=== PATIENT | female | born 1995 | race Two or more races ===

== ENCOUNTER 2016-12-06 15:39 | Emergency (ER) | payer SELFPAY ==
[~2016-12-06] VITALS: Ht 154.9 cm; Wt 44.5 kg
[2016-12-06 17:38] LABS: BILIRUBIN,URINE NEGATIVE (NEG); GLUCOSE,URINE 250 mg/dL (NEG); NITRITE,URINE NEGATIVE (NEG); PROTEIN,URINE NEGATIVE (NEG-TRACE)
[2016-12-06 17:39] LABS: BASO % 0 % (0-3); EOS % 1 % (0-3); HEMATOCRIT 39.5 % (36.0-47.0); HEMOGLOBIN 13.8 g/dL (12.0-15.5); LYMPH # 2.4 x10^3/uL (1.0-4.8); LYMPH % 20 % (24-48); MEAN CORPUSCULAR HEMOGLOBIN 33 pg (25-35); MEAN CORPUSCULAR HGB CONC 35 g/dL (31-37); MEAN CORPUSCULAR VOLUME 95 fL (79-100); MONO % 6 % (0-9); NEUT % 73 % (31-73); PLATELET COUNT 397 x10^3/uL (140-400); RED BLOOD COUNT 4.15 x10^6/uL (3.50-5.40); WHITE BLOOD COUNT 11.9 x10^3/uL (4.0-11.0)
[2016-12-06 17:45] LABS: BARBITURATES NEG (NEG); BENZODIAZEPINES NEG (NEG); CANNABINOIDS NEG (NEG); COCAINE NEG (NEG); METHADONE NEG (NEG); OPIATES NEG (NEG); PHENCYCLIDINE NEG (NEG)
[2016-12-06 17:50] LABS: ETHANOL, URINE NEG (NEG)
[2016-12-06 17:52] LABS: BACTERIA,URINE MODERATE /HPF (0-FEW); SQUAMOUS EPITHELIAL CELL,UR MOD /LPF
--- NOTE | 2016-12-06 18:09 | ED.ADGEN ---
Past Medical History Past Medical History: Anxiety, Depression Past Surgical History: No Surgical History Alcohol Use: None Drug Use: None Adult General Chief Complaint Chief Complaint: SUICDAL IDEATION HPI HPI Patient is a 21 year old woman, history of anxiety and depression, who presents the emergency department with complaint of depression and suicidal ideation. Patient moved to the area 2 months ago, stay with family, but states that she feels very anxious about multiple factors in her life. She states that she is not certain if she may be . Patient's last menstrual period began 11 November. She also is complaining of a foreign body sensation in her left ear for the past 2 weeks. It is associated with runny nose and sore throat. Patient states she also some coughing that is nonproductive. She is complaining of abdominal cramping. Denies any discharge or drainage from the vagina, denies any concern for STD exposure. Patient denies any plan at this time, denies any ingestions, a self injures behaviors currently her past. Denies any auditory or visual hallucinations. Patient is Albanian-speaking, toe trimmer used via the language line during discussion and evaluation. Review of Systems Review of Systems Constitutional: Denies fever or chills. [] Eyes: Denies change in visual acuity. [] HENT: Rhinorrhea, sore throat, pain in the left ear. Respiratory: Nonproductive cough. No shortness of breath. Cardiovascular: Denies chest pain or edema. [] GI: Lower quadrant abdominal cramping, nausea, no vomiting, bloody stools or diarrhea. : Denies dysuria. [] Musculoskeletal: Denies back pain or joint pain. [] Integument: Denies rash. [] Neurologic: Denies headache, focal weakness or sensory changes. [] Endocrine: Denies polyuria or polydipsia. [] Lymphatic: Denies swollen glands. [] Psychiatric: Depression and anxiety, suicidal ideation. Current Medications Current Medications Current Medications Medications (Trade) Dose Ordered Sig/Mey Start Time Stop Time Status Last Admin Dose Admin Amoxicillin (Amoxil) 1,000 mg 1X ONCE 12/06/16 20:45 12/06/16 20:45 DC 12/06/16 20:19 1,000 MG Cephalexin HCl (Keflex) 500 mg 1X ONCE 12/06/16 19:00 12/06/16 19:01 DC 12/06/16 20:09 500 MG Metronidazole (Flagyl) 500 mg 1X ONCE 12/06/16 19:00 12/06/16 19:01 DC 12/06/16 20:09 500 MG Ondansetron HCl (Zofran Odt) 4 mg STK-MED ONCE 12/06/16 20:07 12/06/16 20:08 DC Ondansetron HCl (Zofran) 4 mg 1X ONCE 12/06/16 19:00 12/06/16 19:01 DC Allergies Allergies Allergies Coded Allergies Type Severity Reaction Last Updated Verified No Known Drug Allergies 12/06/16 No Physical Exam Physical Exam Constitutional: Well developed, well nourished, no acute distress, non-toxic appearance. [] HENT: Normocephalic, atraumatic, bilateral external ears normal, patient with erythema and a small fluid level noted on the left TM, right TM is normal. Patient with normal external canals bilaterally. Patient noted to have mild turbinate swelling and clear rhinorrhea, mild postnasal drip and injection of the oropharynx. Eyes: PERRLA, EOMI, conjunctiva normal, no discharge. [] Neck: Normal range of motion, no tenderness, supple, no stridor. [] Cardiovascular:Heart rate regular rhythm, no murmur , S1, S2, rubs or gallops. [ ] Lungs & Thorax: Bilateral breath sounds clear to auscultation, no wheezing, rhonchi, rales. No chest or crepitus or tenderness. [] Abdomen: Bowel sounds normal, soft, no tenderness, no masses, no pulsatile masses. [] Skin: Warm, dry, no erythema, no rash. [] Back: No tenderness, no CVA tenderness. [] Extremities: No tenderness, no cyanosis, no clubbing, ROM intact, no edema. [] Neurologic: Alert and oriented X 3, normal motor function, normal sensory function, no focal deficits noted. [] Psychologic: Affect normal, judgement normal, mood normal. [] Pelvic examination: Normal-appearing external examination, bimanual examination reveals a closed os, nontender cervix and adnexa, no masses. Speculum examination reveals normal-appearing cervix, specimens taken without issue, moderate amount of white discharge noted. Current Patient Data Vital Signs Vital Signs Date Time Temp Pulse Resp B/P Pulse Ox O2 Delivery O2 Flow Rate FiO2 12/06/16 20:20 108 18 113/65 96 Room Air 12/06/16 16:33 97.9 97.9 Lab Values Laboratory Tests Test 12/06/16 15:57 12/06/16 16:50 12/06/16 17:30 12/06/16 17:55 POC Urine HCG, Qualitative Hcg positive (Negative) Urine Collection Type Unknown Urine Color Yellow Urine Clarity Clear Urine pH 7.0 Urine Specific [place] 1.020 Urine Protein Negativemg/dL (NEG-TRACE) Urine Glucose (UA) 250mg/dL (NEG) Urine Ketones (Stick) Negativemg/dL (NEG) Urine Blood Negative (NEG) Urine Nitrite Negative (NEG) Urine Bilirubin Negative (NEG) Urine Urobilinogen Dipstick 1.0mg/dL (0.2 mg/dL) Urine Leukocyte Esterase Negative (NEG) Urine RBC 1-2/HPF (0-2) Urine WBC 1-4/HPF (0-4) Urine Squamous Epithelial Cells Mod/LPF Urine Bacteria Moderate/HPF (0-FEW) Urine Mucus Mod/LPF Urine Opiates Screen Neg (NEG) Urine Methadone Screen Neg (NEG) Urine Barbiturates Neg (NEG) Urine Phencyclidine Screen Neg (NEG) Urine Amphetamine/Methamphetamine Neg (NEG) Urine Benzodiazepines Screen Neg (NEG) Urine Cocaine Screen Neg (NEG) Urine Cannabinoids Screen Neg (NEG) Urine Ethyl Alcohol Neg (NEG) White Blood Count 11.9x10^3/uL (4.0-11.0) H Red Blood Count 4.15x10^6/uL (3.50-5.40) Hemoglobin 13.8g/dL (12.0-15.5) Hematocrit 39.5% (36.0-47.0) Mean Corpuscular Volume 95fL (79-100) Mean Corpuscular Hemoglobin 33pg (25-35) Mean Corpuscular Hemoglobin Concent 35g/dL (31-37) Red Cell Distribution Width 12.0% (11.5-14.5) Platelet Count 397x10^3/uL (140-400) Neutrophils (%) (Auto) 73% (31-73) Lymphocytes (%) (Auto) 20% (24-48) L Monocytes (%) (Auto) 6% (0-9) Eosinophils (%) (Auto) 1% (0-3) Basophils (%) (Auto) 0% (0-3) Neutrophils # (Auto) 8.6x10^3uL (1.8-7.7) H Lymphocytes # (Auto) 2.4x10^3/uL (1.0-4.8) Monocytes # (Auto) 0.7x10^3/uL (0.0-1.1) Eosinophils # (Auto) 0.1x10^3/uL (0.0-0.7) Basophils # (Auto) 0.0x10^3/uL (0.0-0.2) Maternal Serum HCG Beta Subunit 32mIU/mL (0-6) H Sodium Level 139mmol/L (136-145) Potassium Level 3.5mmol/L (3.5-5.1) Chloride Level 102mmol/L (98-107) Carbon Dioxide Level 27mmol/L (21-32) Anion Gap 10 (6-14) Blood Urea Nitrogen 11mg/dL (7-20) Creatinine 0.6mg/dL (0.6-1.0) Estimated GFR (Cockcroft-Gault) 127.5 BUN/Creatinine Ratio 18 (6-20) Glucose Level 100mg/dL (70-99) H Calcium Level 9.5mg/dL (8.5-10.1) Total Bilirubin 0.2mg/dL (0.2-1.0) Aspartate Amino Transferase (AST) 24U/L (15-37) Alanine Aminotransferase (ALT) 39U/L (14-59) Alkaline Phosphatase 76U/L (46-116) Total Protein 8.6g/dL (6.4-8.2) H Albumin 3.9g/dL (3.4-5.0) Albumin/Globulin Ratio 0.8 (1.0-1.7) L Lipase 109U/L (73-393) Laboratory Tests 12/06/16 17:30 Laboratory Tests 12/06/16 17:55 Microbiology 12/06/16 Wet Prep - Final, Complete EKG EKG ECG: Rhythm strip: Sinus tachycardia, heart rate 101 beats minute, no ectopy. As interpreted by me. Radiology/Procedures Radiology/Procedures Not indicated. [] Course & Med Decision Making Course & Med Decision Making Pertinent Labs and Imaging studies reviewed. (See chart for details) Patient with multiple complaints as stated, including occasional suicidal ideation and frequent anxiety, with depression after recent move, for which she states she would like to speak to someone about available resources for counseling. Patient has no suicidal thoughts at this time, has no plan. No homicidal ideation, no auditory or visual hallucinations. No ingestions or other concerning behaviors. Patient was informed that she was in the emergency department today, states that her last menstrual period was a month ago. Beta quantitative assay in the ED is 32, patient was complaining of mild abdominal pain, at this time there is no utility to perform an ultrasound, which I did did discuss with the patient, emphasized that it is very important she follows up with [facility] for additional assessment. Patient's wet prep was positive for bacterial vaginosis, she was also noted to have evidence of bacteria in the urine, and was treated with Keflex and metronidazole in the ED. The importance of follow-up was also discussed regarding this factor, patient was given resources for follow-up from the psychiatric assessment team, where she can be treated for her ,as well as her mental mental health concerns. Patient noted to have inflammation of the left TM, although she has some evidence of a likely viral infection, as this is going for 2 weeks, I will treat with a course of antibiotics as well. There are patient received amoxicillin in the ED as well, ultimately was given prescriptions for Zofran, amoxicillin, metronidazole and Keflex to cover the multiple infectious sources. As stated the patient denies any concerns for STI exposure, cultures were taken during her examination, and she was informed she be contacted via telephone with results if she required follow-up. Patient was evaluated by the psychiatric assessment team as stated, and continues to deny any current suicidal ideation or other concerning symptoms. She was given follow-up information as stated, we did discuss clear and detailed return instructions with this patient voiced understanding and agreement. Patient was discharged home in stable condition with plan to follow-up with the resources as provided to her by the psychiatric assessment team for both her and her anxiety and depression, and to return to the ED if any concerning symptoms develop. Dragon Disclaimer Dragon Disclaimer This electronic medical record was generated, in whole or in part, using a voice recognition dictation system. Departure Impression: Primary Impression: Bacterial vaginosis Additional Impressions: Urinary tract infection affecting Abdominal pain affecting Depression Anxiety Otitis media Disposition: 01 HOME, SELF-CARE Condition: IMPROVED Scripts Ondansetron Hcl (Zofran)4 Mg Tablet1 Tab PO PRN Q6-8HRS #10 TAB Prov:MARIA DEL ROSARIO STEIN DO 12/06/16 Cephalexin (Keflex)500 Mg Capsule1 Cap PO BID #14 CAP Prov:MARIA DEL ROSARIO STEIN DO 12/06/16 Metronidazole 500 Mg Tablet1 Tab PO BID #14 TAB Prov:MARIA DEL ROSARIO STEIN DO 12/06/16 Amoxicillin 875 Mg Hetsws409 Mg PO TID #15 TAB Ref 0 Prov:MARIA DEL ROSARIO STEIN DO 12/06/16 Pnv With Ca,No.72/Iron,Carb/Fa ( Plus Iron Tablet)1 Each Tablet1 Tab PO DAILY #30 TAB Ref 11 Prov:MARIA DEL ROSARIO STEIN DO 12/06/16 Problem Qualifiers MARIA DEL ROSARIO STEIN DO Dec 06, 2016 18:09
[2016-12-06 18:35] LABS: CALCIUM 9.5 mg/dL (8.5-10.1); CREATININE 0.6 mg/dL (0.6-1.0); GFR 127.5; POTASSIUM 3.5 mmol/L (3.5-5.1)
[2016-12-06 18:39] LABS: ALBUMIN 3.9 g/dL (3.4-5.0); ALBUMIN/GLOBULIN RATIO 0.8 (1.0-1.7); TOTAL BILIRUBIN 0.2 mg/dL (0.2-1.0); TOTAL PROTEIN 8.6 g/dL (6.4-8.2)
[2016-12-06] MEDS ORDERED: CEPHALEXIN 250 MG CAPSULE. PO ONE (19:00)
[2016-12-06] MEDS ORDERED: ONDANSETRON PF 4 MG/2 ML VIAL. IV ONE (19:00)
[2016-12-06] MEDS ORDERED: METRONIDAZOLE 500 MG TABLET. PO ONE (19:00)
[2016-12-06] MEDS ORDERED: ONDANSETRON ODT 4 MG TAB.RAPDIS. ONE (20:07)
[2016-12-06] MEDS ORDERED: METR500T4 PO (20:12)
[2016-12-06] MEDS ORDERED: CEPH-264 PO (20:12)
[2016-12-06] MEDS ORDERED: PNV1TABL34 PO (20:12)
[2016-12-06] MEDS ORDERED: ONDA4TAB7 PO (20:12)
[2016-12-06] MEDS ORDERED: AMOX875T PO (20:12)
[2016-12-06] MEDS ORDERED: ONDANSETRON ODT 4 MG TAB.RAPDIS. PO ONE (20:15)
[2016-12-06 20:20] VITALS: BP 113/65
[2016-12-06] MEDS ORDERED: AMOXICILLIN 250 MG CAPSULE. PO ONE (20:45)
== END 2016-12-06 20:20 | disposition home or self-care (01) ==
LOC: ER 15:39
DX: Z33.1 Pregnant state, incidental (principal); F32.9 Major depressive disorder, single episode, unspecified; F41.9 Anxiety disorder, unspecified; N39.0 Urinary tract infection, site not specified; N76.0 Acute vaginitis; B96.89 Other specified bacterial agents as the cause of diseases classified elsewhere; H66.92 Otitis media, unspecified, left ear; R45.851 Suicidal ideations
CPT/HCPCS: 36415; 80053; 80305; 81001; 81025; 83690; 84702; 85027; 87086; 87491; 87591; 99284; Q0111; Q0162; G0481

== ENCOUNTER 2017-08-14 04:05 | Inpatient (IN) | payer SELFPAY ==
[~2017-08-14] VITALS: Ht 157.5 cm; Wt 54.0 kg
[~2017-08-14 04:05] MED LIST: AMOX875T PO; CEPH-264 PO; METR500T8 PO; ONDA4TAB7 PO; PNV1TABL34 PO
[2017-08-14] MEDS ORDERED: ACETAMINOPHEN 325 MG TABLET. PO PRN ×2 (04:15→05:45)
[2017-08-14] MEDS ORDERED: IV RINGERS,LACTATED 1000ML 1,000 ML IV PRN (04:15)
[2017-08-14] MEDS ORDERED: IV RINGERS,LACTATED 500ML 500 ML IV PRN (04:15)
[2017-08-14] MEDS ORDERED: MAG HYDROX/ALUMINUM HYD/SIMETH 30 ML ORAL.SUSP PO PRN ×2 (04:15→05:45)
[2017-08-14 04:44] LABS: BILIRUBIN,URINE NEGATIVE (NEG); GLUCOSE,URINE NEGATIVE (NEG); NITRITE,URINE NEGATIVE (NEG); PH,URINE 6.5; PROTEIN,URINE NEGATIVE (NEG-TRACE); UROBILINOGEN,URINE 0.2 mg/dL (0.2 mg/dL)
[2017-08-14 05:05] LABS: BACTERIA,URINE FEW /HPF (0-FEW); SQUAMOUS EPITHELIAL CELL,UR FEW /LPF
[2017-08-14] MEDS ORDERED: IV RINGERS,LACTATED 1000ML 1,000 ML IV SCH ×2 (05:42→08:14)
[2017-08-14] MEDS ORDERED: TERBUTALINE 1 MG/ML VIAL. SQ PRN (05:45)
[2017-08-14] MEDS ORDERED: BUTORPHANOL 2 MG/ML VIAL. IV PRN (05:45)
[2017-08-14] MEDS ORDERED: OXYTOCIN 30 UNIT/500 ML PREMIX 500 ML IV PRN ×2 (05:45→06:30)
[2017-08-14] MEDS ORDERED: LIDOCAINE 1% PF 30 ML VIAL. INJ PRN (05:45)
[2017-08-14] MEDS ORDERED: 0.9 % SODIUM CHLORIDE 10 ML DISP.SYRIN. IV PRN (05:45)
[2017-08-14] MEDS ORDERED: fentaNYL PF VIAL 100 MCG/2 ML VIAL IV PRN (05:45)
[2017-08-14 06:17] LABS: BASO % 0 % (0-3); EOS % 1 % (0-3); HEMATOCRIT 41.3 % (36.0-47.0); LYMPH # 3.2 x10^3/uL (1.0-4.8); LYMPH % 31 % (24-48); MEAN CORPUSCULAR HEMOGLOBIN 33 pg (25-35); MEAN CORPUSCULAR HGB CONC 34 g/dL (31-37); MEAN CORPUSCULAR VOLUME 99 fL (79-100); MONO % 6 % (0-9); NEUT % 62 % (31-73); PLATELET COUNT 264 x10^3/uL (140-400); RED BLOOD COUNT 4.19 x10^6/uL (3.50-5.40); RED CELL DISTRIBUTION WIDTH 13.7 % (11.5-14.5); WHITE BLOOD COUNT 10.4 x10^3/uL (4.0-11.0)
[2017-08-14] MEDS ORDERED: PENICILLIN G K 5,000,000 UNIT in IV DEXTROSE 5% 100 ML IV ONE (06:30)
[2017-08-14] MEDS: ONDANSETRON PF 4 MG/2 ML VIAL. IV PRN ×2 (06:50→13:57)
[2017-08-14 07:33] VITALS: BP 109/61
[2017-08-14] MEDS ORDERED: ONDANSETRON PF 4 MG/2 ML VIAL. IV PRN (08:15)
[2017-08-14] MEDS ORDERED: L&D EPIDURAL CASSETTE 100 ML EP PRN (08:15)
[2017-08-14] MEDS ORDERED: NALOXONE 0.4 MG/ML VIAL. IV PRN (08:15)
[2017-08-14] MEDS ORDERED: ROPIVacaine 0.2% IN 0.9%NACL PF 40 MG/20 ML DISP.SYRIN. EPI PRN (08:15)
[2017-08-14] MEDS ORDERED: ePHEDrine PF IN SALINE 50 MG/5 ML DISP.SYRIN IV PRN (08:15)
[2017-08-14] MEDS: fentaNYL PF VIAL 100 MCG/2 ML VIAL EPI PRN ×2 (08:24→08:26)
[2017-08-14] MEDS ORDERED: PHENYLEPHRINE in 0.9% NACL PF 1 MG/10 ML SYRINGE. IV ONE (08:56)
[2017-08-14] MEDS ORDERED: PENICILLIN G K 2,500,000 UNIT in IV DEXTROSE 5% 50 ML IV SCH (10:30)
--- NOTE | 2017-08-14 11:51 | PDOC1 ---
OB - History Hx of Present Care: Good Care Ultrasounds: Normal mid trimester US Obstetrical Complications: None Medical Complications: None Past Family/Social History * Past Medical, Surgical, Family and Obstetric Histories reviewed from chart. Rubella: Immune RPR/VDRL: Negative GBS Status: Negative HBsAG: Negative OB - Chief Complaint & HPI Date of Admission: Date of Admission: Aug 14, 2017 at 04:05 Chief Complaint/History : 1 Para: 0 EGA: 40 Reason for admission: active labor Admission Nurse Assessment Rev: Yes Problems: OB - Admission Exam Physical Exam Vitals: VS - Last 72 Hours, by Label Date Time Temp Pulse Resp B/P (MAP) Pulse Ox O2 Delivery O2 Flow Rate FiO2 08/14/17 08:26 20 08/14/17 08:24 20 08/14/17 07:42 20 08/14/17 07:33 98.9 82 20 109/61 (77) 98.9 08/14/17 06:24 22 Room Air HEENT: Normal Heart: Regular Rate Lungs: Clear Abdomen: Gravid, Non tender, Soft Extremities: Edema Reflexes: Normal Cervical Dilatation: 4cm Effacement: 75% Station: -2 Membranes: Intact Heart Rate: Normal Accelerations: Accelerations Present Decelerations: No decelerations Contractions on Admission: < 5 Minutes Apart Intensity: Firm Text A: 40 wks IUP Active labor P: Admit for labor management. YAN MUNOZ Jr, MD Aug 14, 2017 11:51
--- NOTE | 2017-08-14 12:48 | PDOC ---
VAGINAL DELIVERY DATE DATE: 08/14/17 TIME: 12:46 : 1 Para: 1 EGA: 40 VAGINAL DELIVERY: VTX VACCUM ASSISTED: No PLACENTA: Spontaneous / SEX: Female WEIGHT Weight [2865 gm ] Nuchal Cord: Yes, Times 1 Amniotic Fluid: Clear PAIN: Epidural EPISIOTOMY: No EXTENSION: Yes (2nd degree midline laceration) REPAIRED WITH 2-0 vicryl EBL 300 ml COMPLICATIONS none CONDITION pt. stable Problems: YAN MUNOZ Jr, MD Aug 14, 2017 12:48
[2017-08-14] MEDS: IBUPROFEN 600 MG TABLET. PO PRN ×2 (15:09→21:30)
[2017-08-14 16:00] VITALS: BP 100/64
[2017-08-14 17:00] VITALS: BP 105/61
[2017-08-14] MEDS ORDERED: BENZOCAINE 20% TOPICAL AEROSOL SPRAY 57GM CAN. TP PRN (19:15)
[2017-08-14 23:04] VITALS: BP 108/65
[2017-08-15] MEDS: IBUPROFEN 600 MG TABLET. PO PRN ×2 (06:13→14:33)
[2017-08-15 06:26] VITALS: BP 88/43
[2017-08-15 09:35] VITALS: BP 102/60
--- NOTE | 2017-08-15 13:45 | PDOC ---
OB Progress Note Date of Service 08/15/17 Time of Evaluation 1345 Notes Pt. feeling well. No complaints. Lab Laboratory Tests Test 08/14/17 04:36 08/14/17 06:00 Urine Collection Type Unknown Urine Color Yellow Urine Clarity Clear Urine pH 6.5 Urine Specific [place] <=1.005 Urine Protein Negative mg/dL (NEG-TRACE) Urine Glucose (UA) Negative mg/dL (NEG) Urine Ketones (Stick) Negative mg/dL (NEG) Urine Blood Negative (NEG) Urine Nitrite Negative (NEG) Urine Bilirubin Negative (NEG) Urine Urobilinogen Dipstick 0.2 mg/dL (0.2 mg/dL) Urine Leukocyte Esterase Moderate (NEG) Urine RBC 1-2 /HPF (0-2) Urine WBC 5-10 /HPF (0-4) Urine Squamous Epithelial Cells Few /LPF Urine Bacteria Few /HPF (0-FEW) White Blood Count 10.4 x10^3/uL (4.0-11.0) Red Blood Count 4.19 x10^6/uL (3.50-5.40) Hemoglobin 14.0 g/dL (12.0-15.5) Hematocrit 41.3 % (36.0-47.0) Mean Corpuscular Volume 99 fL (79-100) Mean Corpuscular Hemoglobin 33 pg (25-35) Mean Corpuscular Hemoglobin Concent 34 g/dL (31-37) Red Cell Distribution Width 13.7 % (11.5-14.5) Platelet Count 264 x10^3/uL (140-400) Neutrophils (%) (Auto) 62 % (31-73) Lymphocytes (%) (Auto) 31 % (24-48) Monocytes (%) (Auto) 6 % (0-9) Eosinophils (%) (Auto) 1 % (0-3) Basophils (%) (Auto) 0 % (0-3) Neutrophils # (Auto) 6.4 x10^3uL (1.8-7.7) Lymphocytes # (Auto) 3.2 x10^3/uL (1.0-4.8) Monocytes # (Auto) 0.6 x10^3/uL (0.0-1.1) Eosinophils # (Auto) 0.1 x10^3/uL (0.0-0.7) Basophils # (Auto) 0.0 x10^3/uL (0.0-0.2) Rapid Plasma Reagin Non reactive (Non Reactive) Medications Current Medications Ringer's Solution 500 ml @ 500 mls/hr PRN 1X PRN IV CALL MD IF GIVEN; Start 08/14/17 at 04:15 Ringer's Solution 1,000 ml @ 125 mls/hr Q8H PRN IV SEE COMMENTS; Start at 04:15 Acetaminophen (Tylenol) 650 mg PRN Q6HRS PRN PO PAIN, TEMP > 100.5'F; Start at 04:15 Al Hydroxide/Mg Hydroxide (Mylanta Plus Xs) 15 ml PRN Q4HRS PRN PO HEARTBURN / GAS; Start 08/14/17 at 04:15 Sodium Chloride (Normal Saline Flush) 3 ml QSHIFT PRN IV AFTER MEDS AND BLOOD DRAWS; Start 08/14/17 at 05:45 Ringer's Solution 1,000 ml @ 125 mls/hr Q8H IV Last administered on t 06:21; Start 08/14/17 at 05:42 Butorphanol Tartrate (Stadol) 2 mg PRN Q1HR PRN IV Severe labor pain Last administered on 08/14/17 06:24; Start 08/14/17 at 05:45 Fentanyl Citrate (Fentanyl 2ml Vial) 100 mcg PRN Q10MIN PRN IV Labor pain; Start 08/14/17 at 05:45 Acetaminophen (Tylenol) 650 mg PRN Q6HRS PRN PO MILD PAIN / TEMP; Start at 05:45 Ondansetron HCl (Zofran) 4 mg PRN Q4HRS PRN IV NAUSEA/VOMITING Last administered on 08/14/17t 13:57; Start 08/14/17 at 05:45 Al Hydroxide/Mg Hydroxide (Mylanta Plus Xs) 30 ml PRN Q4HRS PRN PO HEARTBURN / GAS; Start 08/14/17 at 05:45 Terbutaline Sulfate (Brethine) 0.25 mg 1X PRN PRN SQ SEE COMMENTS; Start 08/14 at 05:45; Stop 08/15/17 at 05:44; Status DC Lidocaine HCl 30 ml 1X PRN PRN INJ SEE COMMENTS; Start 08/14/17 at 05:45; Stop 08/16/17 at 05:44 Oxytocin/Sodium Chloride 500 ml @ 0 mls/hr CONT PRN PRN IV Post delivery bleeding Last administered on 08/14/17 12:39; Start 08/14/17 at 05:45 Ibuprofen (Motrin) 600 mg PRN Q6HRS PRN PO PAIN Last administered on 06:13; Start 08/14/17 at 05:45 Oxytocin/Sodium Chloride 500 ml @ 0 mls/hr CONT PRN IV SEE I/O RECORD; Start 08/14/17 at 06:30 Penicillin G Potassium [id number] unit/Dextrose 100 ml @ 100 mls/hr 1X ONCE IV Last administered on 08/14/17 06:53; Start 08/14/17 at 06:30; Stop 08/14/17 at 07:29; Status DC Penicillin G Potassium [id number] unit/Dextrose 50 ml @ 100 mls/hr Q4H IV ; Start 08/14/17 at 10:30; Stop 08/14/17 at 19:07; Status DC Ringer's Solution 1,000 ml @ 1,000 mls/hr Q1H IV Last administered on 08:21; Start 08/14/17 at 08:14; Stop 08/14/17 at 09:13; Status DC Ephedrine Sulfate (ePHEDrine PF IN SALINE SYRINGE) 10 mg PRN Q2MIN PRN IV IF SBP<90; Start 08/14/17 at 08:15 Naloxone HCl (Narcan) 0.4 mg PRN Q1MIN PRN IV SEE COMMENTS; Start 08/14/17 at 08:15 Fentanyl Citrate (Fentanyl 2ml Vial) 100 mcg PRN 1X PRN EPI FOR ANESTHESIA Last administered on 08/14/17 08:26; Start 08/14/17 at 08:15; Stop 08/15/17 at 08:14; Status DC Ropivacaine/ Fentanyl/NS 100 ml @ 14 mls/hr CONT PRN EP PAIN Last administered on 08/14/17 08:25; Start 08/14/17 at 08:15 Ondansetron HCl (Zofran) 4 mg PRN Q6HRS PRN IV NAUSEA/VOMITING; Start at 08:15 Ropivacaine/ Sodium Chloride 40 mg PRN 1X PRN EPI SEE COMMENTS Last administered on 08/14/17 08:24; Start 08/14/17 at 08:15; Stop 08/15/17 at 08 :14; Status DC Phenylephrine HCl 1 mg STK-MED ONCE IV ; Start 08/14/17 at 08:56; Stop at 08:57; Status DC Benzocaine (Americaine) 1 spray PRN Q4HRS PRN TP PAIN Last administered on 19:28; Start 08/14/17 at 19:15 Active Scripts Active Zofran (Ondansetron Hcl) 4 Mg Tablet 1 Tab PO PRN Q6-8HRS Keflex (Cephalexin) 500 Mg Capsule 1 Cap PO BID Metronidazole 500 Mg Tablet 1 Tab PO BID Amoxicillin 875 Mg Tablet 875 Mg PO TID Plus Iron Tablet (Pnv With Ca,No.72/Iron,Carb/Fa) 1 Each Tablet 1 Tab PO DAILY Exam Abd: soft, non tender, fundus firm Assessment PPD#1 s/p Plan of Care: Continue current Tx, Mgmt YAN MUNOZ Jr, MD Aug 15, 2017 13:45
[2017-08-15 17:25] VITALS: BP 110/64
[2017-08-15 23:15] VITALS: BP 105/66
[2017-08-16] MEDS: IBUPROFEN 600 MG TABLET. PO PRN ×2 (00:49→08:40)
[2017-08-16] MEDS ORDERED: ZOLPIDEM 5 MG TABLET. PO PRN (01:00)
[2017-08-16 06:03] VITALS: BP 103/56
[2017-08-16 08:10] VITALS: BP 107/71
[2017-08-16] MEDS ORDERED: DOCUSATE SODIUM 100 MG CAPSULE. PO PRN (08:15)
--- NOTE | 2017-08-16 08:17 | PDOC ---
OB Progress Note Date of Service 08/16/17 Time of Evaluation 0815 Notes Pt. feeling well. No complaints. Medications Current Medications Ringer's Solution 500 ml @ 500 mls/hr PRN 1X PRN IV CALL MD IF GIVEN; Start 08/14/17 at 04:15 Ringer's Solution 1,000 ml @ 125 mls/hr Q8H PRN IV SEE COMMENTS; Start at 04:15 Acetaminophen (Tylenol) 650 mg PRN Q6HRS PRN PO PAIN, TEMP > 100.5'F Last administered on 08/15/17 19:21; Start 08/14/17 at 04:15 Al Hydroxide/Mg Hydroxide (Mylanta Plus Xs) 15 ml PRN Q4HRS PRN PO HEARTBURN / GAS; Start 08/14/17 at 04:15 Sodium Chloride (Normal Saline Flush) 3 ml QSHIFT PRN IV AFTER MEDS AND BLOOD DRAWS; Start 08/14/17 at 05:45 Ringer's Solution 1,000 ml @ 125 mls/hr Q8H IV Last administered on 06:21; Start 08/14/17 at 05:42 Butorphanol Tartrate (Stadol) 2 mg PRN Q1HR PRN IV Severe labor pain Last administered on 08/14/17 06:24; Start 08/14/17 at 05:45 Fentanyl Citrate (Fentanyl 2ml Vial) 100 mcg PRN Q10MIN PRN IV Labor pain; Start 08/14/17 at 05:45 Acetaminophen (Tylenol) 650 mg PRN Q6HRS PRN PO MILD PAIN / TEMP; Start at 05:45 Ondansetron HCl (Zofran) 4 mg PRN Q4HRS PRN IV NAUSEA/VOMITING Last administered on 08/14/17 13:57; Start 08/14/17 at 05:45 Al Hydroxide/Mg Hydroxide (Mylanta Plus Xs) 30 ml PRN Q4HRS PRN PO HEARTBURN / GAS; Start 08/14/17 at 05:45 Terbutaline Sulfate (Brethine) 0.25 mg 1X PRN PRN SQ SEE COMMENTS; Start 08/14 at 05:45; Stop 08/15/17 at 05:44; Status DC Lidocaine HCl 30 ml 1X PRN PRN INJ SEE COMMENTS; Start 08/14/17 at 05:45; Stop 08/16/17 at 05:44; Status DC Oxytocin/Sodium Chloride 500 ml @ 0 mls/hr CONT PRN PRN IV Post delivery bleeding Last administered on 08/14/17 12:39; Start 08/14/17 at 05:45 Ibuprofen (Motrin) 600 mg PRN Q6HRS PRN PO PAIN Last administered on 00:49; Start 08/14/17 at 05:45 Oxytocin/Sodium Chloride 500 ml @ 0 mls/hr CONT PRN IV SEE I/O RECORD; Start 08/14/17 at 06:30 Penicillin G Potassium [id number] unit/Dextrose 100 ml @ 100 mls/hr 1X ONCE IV Last administered on 08/14/17 06:53; Start 08/14/17 at 06:30; Stop 08/14/17 at 07:29; Status DC Penicillin G Potassium [id number] unit/Dextrose 50 ml @ 100 mls/hr Q4H IV ; Start 08/14/17 at 10:30; Stop 08/14/17 at 19:07; Status DC Ringer's Solution 1,000 ml @ 1,000 mls/hr Q1H IV Last administered on 08:21; Start 08/14/17 at 08:14; Stop 08/14/17 at 09:13; Status DC Ephedrine Sulfate (ePHEDrine PF IN SALINE SYRINGE) 10 mg PRN Q2MIN PRN IV IF SBP<90; Start 08/14/17 at 08:15 Naloxone HCl (Narcan) 0.4 mg PRN Q1MIN PRN IV SEE COMMENTS; Start 08/14/17 at 08:15 Fentanyl Citrate (Fentanyl 2ml Vial) 100 mcg PRN 1X PRN EPI FOR ANESTHESIA Last administered on 08/14/17 08:26; Start 08/14/17 at 08:15; Stop 08/15/17 at 08:14; Status DC Ropivacaine/ Fentanyl/NS 100 ml @ 14 mls/hr CONT PRN EP PAIN Last administered on 08/14/17 08:25; Start 08/14/17 at 08:15 Ondansetron HCl (Zofran) 4 mg PRN Q6HRS PRN IV NAUSEA/VOMITING; Start at 08:15 Ropivacaine/ Sodium Chloride 40 mg PRN 1X PRN EPI SEE COMMENTS Last administered on 08/14/17 08:24; Start 08/14/17 at 08:15; Stop 08/15/17 at 08 :14; Status DC Phenylephrine HCl 1 mg STK-MED ONCE IV ; Start 08/14/17 at 08:56; Stop at 08:57; Status DC Benzocaine (Americaine) 1 spray PRN Q4HRS PRN TP PAIN Last administered on 19:28; Start 08/14/17 at 19:15 Zolpidem Tartrate (Ambien) 5 mg PRN QHS PRN PO INSOMNIA; Start 08/16/17 at 01: 00 Active Scripts Active Zofran (Ondansetron Hcl) 4 Mg Tablet 1 Tab PO PRN Q6-8HRS Keflex (Cephalexin) 500 Mg Capsule 1 Cap PO BID Metronidazole 500 Mg Tablet 1 Tab PO BID Amoxicillin 875 Mg Tablet 875 Mg PO TID Plus Iron Tablet (Pnv With Ca,No.72/Iron,Carb/Fa) 1 Each Tablet 1 Tab PO DAILY Exam Abd: soft, non tender, fundus firm Assessment PPD#2 s/p Plan of Care: See new orders (D/c home.) YAN MUNOZ Jr, MD Aug 16, 2017 08:17
--- NOTE | 2017-08-16 08:18 | DISCH ---
DISCHARGE INSTRUCTIONS Condition on Discharge Condition on Discharge: Stable Activity After Discharge Activity Instructions for Disc: Activity as tolerated Lifting Instructions after Dis: No heavy lifting Driving Instructions after Dis: Do not drive today Diet after Discharge Diet after Discharge: Regular Contacting the DRCarla after DC Call your doctor for: Concerns you may have Follow-Up Follow up with: Marleen in 6 wks. YAN MUNOZ Jr, MD Aug 16, 2017 08:18
[2017-08-16] MEDS ORDERED: DOCU-109 PO (08:20)
[2017-08-16] MEDS ORDERED: IBUP-1060 PO (08:20)
[2017-08-16 11:50] VITALS: BP 103/68
== END 2017-08-16 15:45 | disposition home or self-care (01) | DRG 775 ==
LOC: 3 SO LND 04:05 → OBSVTOIN 04:05 → 3 NORTH 16:00
PROVIDERS: ADMIT Obstetrics & Gynecology; ATTEND Obstetrics & Gynecology
PROC: 10E0XZZ Delivery of Products of Conception, External Approach (ICD-10-PCS; principal; 2017-08-14)
PROC: 0KQM0ZZ Repair Perineum Muscle, Open Approach (ICD-10-PCS; 2017-08-14)
PROC: 3E0R3BZ Introduction of Anesthetic Agent into Spinal Canal, Percutaneous Approach (ICD-10-PCS; 2017-08-14)
PROC: 00HU33Z Insertion of Infusion Device into Spinal Canal, Percutaneous Approach (ICD-10-PCS; 2017-08-14)
DX: O69.81X0 Labor and delivery complicated by cord around neck, without compression, not applicable or unspecified (principal); O70.1 Second degree perineal laceration during delivery; Z37.0 Single live birth; Z3A.40 40 weeks gestation of pregnancy
CPT/HCPCS: 36415; 81001; 85025; 86593; 86850; 86900; 86901; 87086; G0378; J2370; J2405; J2540; J2590; J2795; J3010; J7120

== ENCOUNTER 2018-03-19 19:05 | Emergency (ER) | payer SELFPAY, MEDICAID ==
[2018-03-19 19:34] LABS: URINE HCG POC HCG POSITIVE (Negative)
[2018-03-19 20:22] LABS: ADD MAN DIFF? NO
[2018-03-19 20:23] LABS: BASO % 0 % (0-3); EOS # 0.2 x10^3/uL (0.0-0.7); EOS % 3 % (0-3); HEMATOCRIT 38.4 % (36.0-47.0); HEMOGLOBIN 13.4 g/dL (12.0-15.5); LYMPH # 2.1 x10^3/uL (1.0-4.8); LYMPH % 28 % (24-48); MEAN CORPUSCULAR HEMOGLOBIN 33 pg (25-35); MEAN CORPUSCULAR HGB CONC 35 g/dL (31-37); MEAN CORPUSCULAR VOLUME 95 fL (79-100); MONO # 0.4 x10^3/uL (0.0-1.1); MONO % 6 % (0-9); NEUT # 4.9 x10^3uL (1.8-7.7); NEUT % 64 % (31-73); PLATELET COUNT 335 x10^3/uL (140-400); RED BLOOD COUNT 4.05 x10^6/uL (3.50-5.40); WHITE BLOOD COUNT 7.7 x10^3/uL (4.0-11.0)
[2018-03-19 20:35] LABS: ANION GAP 10 (6-14); BLOOD UREA NITROGEN 6 mg/dL (7-20); CALCIUM 9.8 mg/dL (8.5-10.1); CARBON DIOXIDE 27 mmol/L (21-32); CHLORIDE 103 mmol/L (98-107); CREATININE 0.5 mg/dL (0.6-1.0); GFR 155.7; GLUCOSE 85 mg/dL (70-99); POTASSIUM 3.4 mmol/L (3.5-5.1); SODIUM 140 mmol/L (136-145)
[2018-03-19] MEDS: IV NORMAL SALINE 500ML BAG 500 ML IV (21:00)
[2018-03-19 23:31] LABS: BILIRUBIN,URINE NEGATIVE (NEG); CLARITY,URINE CLEAR; COLOR,URINE YELLOW; GLUCOSE,URINE NEGATIVE (NEG); NITRITE,URINE NEGATIVE (NEG); PH,URINE 6.5; PROTEIN,URINE NEGATIVE (NEG-TRACE)
[2018-03-19 23:35] LABS: BACTERIA,URINE 0 /HPF (0-FEW); RBC,URINE OCC /HPF (0-2); SQUAMOUS EPITHELIAL CELL,UR MOD /LPF; WBC,URINE OCC /HPF (0-4)
[2018-03-21 15:36] LABS: CHLAMYDIA PROBE Negative (Negative); GC PROBE Negative (Negative)
== END 2018-03-20 01:02 | disposition home or self-care (01) ==
LOC: ER 03-20 01:02
DX: O20.9 Hemorrhage in early pregnancy, unspecified (principal); O99.341 Other mental disorders complicating pregnancy, first trimester; F41.8 Other specified anxiety disorders; Z3A.12 12 weeks gestation of pregnancy
CPT/HCPCS: 36415; 76801; 80048; 81001; 81025; 84702; 85025; 86850; 86900; 86901; 87491; 87591; 96360; 99285-25; J7040; Q0111

== ENCOUNTER 2018-07-08 18:33 | Emergency (ER) | payer SELFPAY ==
[~2018-07-08] VITALS: Ht 165.1 cm; Wt 44.1 kg
[~2018-07-08 18:33] MED LIST changes: +DOCU-109 PO; +DOXY100C14 PO; +HYDR-971 PO; +IBUP-1060 PO; +METH0.2T36 PO; +NAPR-514 PO
[2018-07-08] MEDS ORDERED: ONDANSETRON PF 4 MG/2 ML VIAL. IV ONE (20:00)
[2018-07-08] MEDS ORDERED: IV NORMAL SALINE 1000ML BAG 1,000 ML IV ONE (20:00)
[2018-07-08 20:01] LABS: BILIRUBIN,URINE NEGATIVE (NEG); CLARITY,URINE CLEAR; COLOR,URINE YELLOW; NITRITE,URINE NEGATIVE (NEG); PH,URINE 6.5; PROTEIN,URINE NEGATIVE (NEG-TRACE); UROBILINOGEN,URINE 0.2 mg/dL (0.2 mg/dL)
[2018-07-08 20:02] LABS: BASO % 1 % (0-3); EOS # 0.2 x10^3/uL (0.0-0.7); EOS % 2 % (0-3); HEMATOCRIT 37.1 % (36.0-47.0); HEMOGLOBIN 13.3 g/dL (12.0-15.5); LYMPH # 2.4 x10^3/uL (1.0-4.8); LYMPH % 28 % (24-48); MEAN CORPUSCULAR HEMOGLOBIN 34 pg (25-35); MEAN CORPUSCULAR HGB CONC 36 g/dL (31-37); MEAN CORPUSCULAR VOLUME 94 fL (79-100); MONO # 0.5 x10^3/uL (0.0-1.1); MONO % 6 % (0-9); NEUT # 5.6 x10^3uL (1.8-7.7); NEUT % 65 % (31-73); PLATELET COUNT 295 x10^3/uL (140-400); RED BLOOD COUNT 3.96 x10^6/uL (3.50-5.40); RED CELL DISTRIBUTION WIDTH 13.1 % (11.5-14.5); WHITE BLOOD COUNT 8.6 x10^3/uL (4.0-11.0)
[2018-07-08 20:13] LABS: BACTERIA,URINE 0 /HPF (0-FEW); RBC,URINE 0 /HPF (0-2); SQUAMOUS EPITHELIAL CELL,UR MOD /LPF
[2018-07-08 20:14] LABS: CALCIUM 8.7 mg/dL (8.5-10.1); CREATININE 0.5 mg/dL (0.6-1.0); GFR 154.3; POTASSIUM 3.4 mmol/L (3.5-5.1)
[2018-07-08 20:19] LABS: ALBUMIN 3.2 g/dL (3.4-5.0); ALBUMIN/GLOBULIN RATIO 0.9 (1.0-1.7); TOTAL BILIRUBIN 0.1 mg/dL (0.2-1.0); TOTAL PROTEIN 6.6 g/dL (6.4-8.2)
[2018-07-08 21:45] VITALS: BP 110/54
[2018-07-08] MEDS ORDERED: CEPH500C PO (21:51)
--- NOTE | 2018-07-08 21:52 | PHYS DOC ---
Past Medical History Past Medical History: Asthma Past Surgical History: No Surgical History Additional Past Surgical Histo: D&C Alcohol Use: None Drug Use: None Adult General Chief Complaint Chief Complaint: ABDOMINAL PAIN IN HPI HPI Patient is a 23 year old female who presents to the ER with complaints of lower abdominal pain x2 weeks; light brown vaginal dishcharge x3 days; dysuria, increased urinary frequency, and low back pain x4 days; and a fever yesterday. Pt denies any blood in her urine, vaginal bleeding, diarrhea, or shortness of breath. She states she is 9 weeks , A2. Her last ended in a miscarriage a few months ago. Currently, she rates her pain as a 7/10 and has not taken anything for relief of her pain. Her LMP was 04/04/17 and she states her EDC is 01/02/19. Review of Systems Review of Systems Constitutional: reports fever yesterday Eyes: Denies change in visual acuity, redness, or eye pain [] HENT: Denies nasal congestion or sore throat [] Respiratory: Denies cough or shortness of breath [] Cardiovascular: No additional information not addressed in HPI [] GI: Denies bloody stools or diarrhea; reports lower abdominal pain x 2 weeks, and nausea/vomiting daily over a month. [] : reports dysuria, and urinary frequency, see HPI Musculoskeletal: reports low back pain Integument: Denies rash or skin lesions [] Neurologic: Denies headache, focal weakness or sensory changes [] All other systems were reviewed and found to be within normal limits, except as documented in this note. Current Medications Current Medications Current Medications Medications (Trade) Dose Ordered Sig/Mey Start Time Stop Time Status Last Admin Dose Admin Ondansetron HCl (Zofran) 4 mg 1X ONCE 07/08/18 20:00 07/08/18 20:01 DC 07/08/18 20:00 4 MG Sodium Chloride 1,000 ml @ 1,000 mls/hr 1X ONCE 07/08/18 20:00 07/08/18 20:59 DC 07/08/18 20:00 1,000 MLS/HR Allergies Allergies Allergies Coded Allergies Type Severity Reaction Last Updated Verified No Known Drug Allergies 08/14/17 No Physical Exam Physical Exam Constitutional: Well developed, well nourished, no acute distress, non-toxic appearance. [] HENT: Normocephalic, atraumatic, bilateral external ears normal, oropharynx moist, no oral exudates, nose normal. [] Eyes: PERRLA, conjunctiva normal, no discharge. [] Cardiovascular:Heart rate regular rhythm, no murmur [] Lungs & Thorax: Bilateral breath sounds clear to auscultation [] Pelvic Exam: [employer] present Abdomen: Nontender External Genitalia: Normal Skin Speculum: Normal vaginal mucosa, normal vaginal discharge no odor, normal cervical discharge Bimanual: No adnexal masses or tenderness, No CMT Skin: Warm, dry, no erythema, no rash. [] Back: No CVA tenderness. [] Neurologic: Alert and oriented X 3, normal motor function, normal sensory function, no focal deficits noted. [] Psychologic: Affect normal, judgement normal, mood normal. [] Current Patient Data Vital Signs Vital Signs Date Time Temp Pulse Resp B/P (MAP) Pulse Ox O2 Delivery O2 Flow Rate FiO2 07/08/18 21:00 74 16 106/55 (72) 99 07/08/18 20:00 Room Air 07/08/18 19:16 98.0 98.0 Lab Values Laboratory Tests Test 07/08/18 19:21 07/08/18 19:39 Urine Collection Type Unknown Urine Color Yellow Urine Clarity Clear Urine pH 6.5 Urine Specific [place] 1.010 Urine Protein Negative mg/dL (NEG-TRACE) Urine Glucose (UA) Negative mg/dL (NEG) Urine Ketones (Stick) Negative mg/dL (NEG) Urine Blood Negative (NEG) Urine Nitrite Negative (NEG) Urine Bilirubin Negative (NEG) Urine Urobilinogen Dipstick 0.2 mg/dL (0.2 mg/dL) Urine Leukocyte Esterase Moderate (NEG) Urine RBC 0 /HPF (0-2) Urine WBC 5-10 /HPF (0-4) Urine Squamous Epithelial Cells Mod /LPF Urine Transitional Epithelial Cells Occ /LPF Urine Bacteria 0 /HPF (0-FEW) Urine Mucus Mod /LPF White Blood Count 8.6 x10^3/uL (4.0-11.0) Red Blood Count 3.96 x10^6/uL (3.50-5.40) Hemoglobin 13.3 g/dL (12.0-15.5) Hematocrit 37.1 % (36.0-47.0) Mean Corpuscular Volume 94 fL (79-100) Mean Corpuscular Hemoglobin 34 pg (25-35) Mean Corpuscular Hemoglobin Concent 36 g/dL (31-37) Red Cell Distribution Width 13.1 % (11.5-14.5) Platelet Count 295 x10^3/uL (140-400) Neutrophils (%) (Auto) 65 % (31-73) Lymphocytes (%) (Auto) 28 % (24-48) Monocytes (%) (Auto) 6 % (0-9) Eosinophils (%) (Auto) 2 % (0-3) Basophils (%) (Auto) 1 % (0-3) Neutrophils # (Auto) 5.6 x10^3uL (1.8-7.7) Lymphocytes # (Auto) 2.4 x10^3/uL (1.0-4.8) Monocytes # (Auto) 0.5 x10^3/uL (0.0-1.1) Eosinophils # (Auto) 0.2 x10^3/uL (0.0-0.7) Basophils # (Auto) 0.0 x10^3/uL (0.0-0.2) Maternal Serum HCG Beta Subunit 70038 mIU/mL (0-5) H Sodium Level 139 mmol/L (136-145) Potassium Level 3.4 mmol/L (3.5-5.1) L Chloride Level 103 mmol/L (98-107) Carbon Dioxide Level 24 mmol/L (21-32) Anion Gap 12 (6-14) Blood Urea Nitrogen 4 mg/dL (7-20) L Creatinine 0.5 mg/dL (0.6-1.0) L Estimated GFR (Cockcroft-Gault) 154.3 BUN/Creatinine Ratio 8 (6-20) Glucose Level 81 mg/dL (70-99) Calcium Level 8.7 mg/dL (8.5-10.1) Total Bilirubin 0.1 mg/dL (0.2-1.0) L Aspartate Amino Transferase (AST) 16 U/L (15-37) Alanine Aminotransferase (ALT) 18 U/L (14-59) Alkaline Phosphatase 45 U/L (46-116) L Total Protein 6.6 g/dL (6.4-8.2) Albumin 3.2 g/dL (3.4-5.0) L Albumin/Globulin Ratio 0.9 (1.0-1.7) L Laboratory Tests 07/08/18 19:39 Laboratory Tests 07/08/18 19:39 Microbiology 07/08/18 Wet Prep - Final, Complete EKG EKG [] Radiology/Procedures Radiology/Procedures PROCEDURE: OB LIMITED Examination: OB LIMITED History: LOW PELVIC PAIN Comparison/Correlation: 05/24/2018 OB ultrasound exam Findings: Limited OB ultrasound exam was performed. Single intrauterine gestation is present. movement and cardiac activity noted. Heart rate of 141 bpm is present. Stomach is visualized. Umbilical cord insertion noted. Anteriorly located placenta is present with no subchorionic hemorrhage. Grade 0 is evident. Biparietal diameter is 2.83 cm corresponding to 15 weeks 1 day. Head circumference is 10.7 cm corresponding to 15 weeks 1 day. Abdominal circumference is 8.8 cm corresponding to 15 weeks 1 day. Femur length is 1.6 cm corresponding to 14 weeks 5 day. Gestational age is 15 weeks 0 day by ultrasound. EDC by ultrasound is 12/30/2018. Normal amount of amniotic fluid is present. Impression: Single living intrauterine gestation with average ultrasound age of 15 weeks 0 day.[] Course & Med Decision Making Course & Med Decision Making Pertinent Labs and Imaging studies reviewed. (See chart for details) Dx: urinary tract infection, abdominal pain, Prescription for keflex. Increase clear fluids, avoid bladder irritants, Follow up with your OBGYN Dr. Carlson this week, call and tell them you were seen in the ER tomorrow morning. Return to the ER if your symptoms worsen. Patient verbalized an understanding of home care, medications, follow-up, and return to ED instructions and was in agreement with the plan of care. [] Dragon Disclaimer Dragon Disclaimer This electronic medical record was generated, in whole or in part, using a voice recognition dictation system. Departure Departure Impression: Primary Impression: Urinary tract infection affecting Additional Impression: Abdominal pain during in second trimester Disposition: 01 HOME, SELF-CARE Condition: STABLE Referrals: NO PCP (PCP) Patient Instructions: ABCs of , Abdominal Pain During , Easy- to-Read, - Urinary Tract Infection Additional Instructions: Fill prescription and use as directed. Follow up with your OBGYN, Dr. Carlson this week, call the office in the morning and advise them you were seen in the ER. Avoid bladder irritants such as caffeine, carbonation, and spicy foods. Return to the ER if your symptoms worsen. Scripts Cephalexin (CEPHALEXIN) 500 Mg Capsule 1 CAP PO BID for 7 Days, #14 CAP 0 Refills Prov: HARDIK BELLA APRN 07/08/18 Problem Qualifiers HARDIK BELLA APRN Jul 08, 2018 21:52
--- NOTE | 2018-07-08 22:22 | RAD ---
Examination: OB LIMITED History: LOW PELVIC PAIN Comparison/Correlation: 05/24/2018 OB ultrasound exam Findings: Limited OB ultrasound exam was performed. Single intrauterine gestation is present. movement and cardiac activity noted. Heart rate of 141 bpm is present. Stomach is visualized. Umbilical cord insertion noted. Anteriorly located placenta is present with no subchorionic hemorrhage. Grade 0 is evident. Biparietal diameter is 2.83 cm corresponding to 15 weeks 1 day. Head circumference is 10.7 cm corresponding to 15 weeks 1 day. Abdominal circumference is 8.8 cm corresponding to 15 weeks 1 day. Femur length is 1.6 cm corresponding to 14 weeks 5 day. Gestational age is 15 weeks 0 day by ultrasound. EDC by ultrasound is 12/30/2018. Normal amount of amniotic fluid is present. Impression: Single living intrauterine gestation with average ultrasound age of 15 weeks 0 day. Electronically signed by: Darion Valente MD (07/08/2018 10:19 PM) [facility]
== END 2018-07-08 22:40 | disposition home or self-care (01) ==
LOC: ER 18:33
DX: O23.42 Unspecified infection of urinary tract in pregnancy, second trimester (principal); R10.30 Lower abdominal pain, unspecified; M54.5 Low back pain; O99.512 Diseases of the respiratory system complicating pregnancy, second trimester; J45.909 Unspecified asthma, uncomplicated; Z3A.15 15 weeks gestation of pregnancy
CPT/HCPCS: 36415; 76815; 80053; 81001; 84702; 85025; 96361; 96374; 99285; J2405; J7030; Q0111; 87086

== ENCOUNTER 2018-09-23 15:11 | Observation (INO) | payer SELFPAY ==
[~2018-09-23 15:11] MED LIST changes: +CEPH500C PO; +HYDR-3164 PO; -HYDR-971 PO; +METR-84 PO; -METR500T8 PO
[2018-09-23] MEDS ORDERED: IV RINGERS,LACTATED 1000ML 1,000 ML IV SCH (15:51)
[2018-09-23 15:59] LABS: BILIRUBIN,URINE NEGATIVE (NEG); CLARITY,URINE CLEAR; NITRITE,URINE NEGATIVE (NEG); PH,URINE 6.5; PROTEIN,URINE NEGATIVE (NEG-TRACE); UROBILINOGEN,URINE 0.2 mg/dL (0.2 mg/dL)
[2018-09-23 16:05] LABS: COLOR,URINE STRAW
[2018-09-23 16:07] LABS: BACTERIA,URINE MANY /HPF (0-FEW); RBC,URINE 0 /HPF (0-2); SQUAMOUS EPITHELIAL CELL,UR MANY /LPF
[2018-09-23 17:11] LABS: BASO % 0 % (0-3); EOS # 0.1 x10^3/uL (0.0-0.7); EOS % 1 % (0-3); HEMATOCRIT 33.2 % (36.0-47.0); HEMOGLOBIN 11.6 g/dL (12.0-15.5); LYMPH % 19 % (24-48); MEAN CORPUSCULAR HEMOGLOBIN 35 pg (25-35); MEAN CORPUSCULAR HGB CONC 35 g/dL (31-37); MEAN CORPUSCULAR VOLUME 98 fL (79-100); MONO # 0.6 x10^3/uL (0.0-1.1); MONO % 6 % (0-9); NEUT % 74 % (31-73); PLATELET COUNT 268 x10^3/uL (140-400); RED BLOOD COUNT 3.37 x10^6/uL (3.50-5.40); WHITE BLOOD COUNT 10.7 x10^3/uL (4.0-11.0)
--- NOTE | 2018-09-23 17:50 | RAD ---
Indication: Vaginal bleeding. TECHNIQUE: Ultrasound OB greater than equal to 14 weeks. COMPARISON: None FINDINGS: The cervix is closed and measures 3.8 cm in length. Single intrauterine in cephalic presentation. Femoral length measures 4.72 cm corresponding to gestation age of 25 weeks 5 days. Abdominal circumference measures 21.38 cm corresponding to gestation age of 25 weeks 6 days. Head circumference measures 23.95 cm corresponding to gestation age of 26 weeks 0 day. Biparietal diameter measures 6.36 cm corresponding to gestation age of 25 weeks 5 days. Heart rate 140 bpm. Placenta lies anterior in position. Amniotic fluid index 18.8 cm. Estimated weight 859 g +/- 127 g. IMPRESSION: Single viable live intrauterine in cephalic presentation with estimated gestation age of 25 weeks 6 days and due date of 12/31/2018. Electronically signed by: Nagi Munson DO (09/23/2018 5:45 PM) [facility]
== END 2018-09-23 17:55 | disposition home or self-care (01) ==
LOC: 3 SO LND 15:11
PROVIDERS: ADMIT Obstetrics & Gynecology; ATTEND Obstetrics & Gynecology
DX: O26.892 Other specified pregnancy related conditions, second trimester (principal); M54.9 Dorsalgia, unspecified; Z3A.26 26 weeks gestation of pregnancy
CPT/HCPCS: 36415; 76805; 81001; 85025; 86850; 86900; 86901; 87086; G0378; G0379

== ENCOUNTER 2018-12-28 13:47 | Inpatient (IN) | payer SELFPAY ==
[~2018-12-28] VITALS: Ht 154.9 cm; Wt 54.4 kg
[~2018-12-28 13:47] MED LIST changes: +METR-34 PO; -METR-84 PO
[2018-12-28 14:21] LABS: BILIRUBIN,URINE NEGATIVE (NEG); CLARITY,URINE CLEAR; COLOR,URINE YELLOW; NITRITE,URINE NEGATIVE (NEG); PH,URINE 8.5; PROTEIN,URINE NEGATIVE (NEG-TRACE); UROBILINOGEN,URINE 0.2 mg/dL (0.2 mg/dL)
[2018-12-28] MEDS ORDERED: IV RINGERS,LACTATED 1000ML 1,000 ML IV SCH ×2 (14:30→15:30)
[2018-12-28 14:32] LABS: BACTERIA,URINE MANY /HPF (0-FEW); RBC,URINE 0 /HPF (0-2); SQUAMOUS EPITHELIAL CELL,UR MANY /LPF; WBC,URINE OCC /HPF (0-4)
[2018-12-28 14:41] VITALS: BP 104/64
[2018-12-28] MEDS ORDERED: IBUPROFEN 400 MG TABLET. PO PRN (15:30)
[2018-12-28] MEDS ORDERED: LIDOCAINE 1% PF 30 ML VIAL. INJ PRN (15:30)
[2018-12-28] MEDS ORDERED: TERBUTALINE 1 MG/ML VIAL. SQ PRN (15:30)
[2018-12-28] MEDS ORDERED: OXYTOCIN 30 UNIT/500 ML PREMIX 500 ML IV PRN ×3 (15:30→16:45)
[2018-12-28] MEDS ORDERED: 0.9 % SODIUM CHLORIDE 10 ML DISP.SYRIN. IV PRN ×2 (15:30→16:45)
[2018-12-28 15:34] LABS: BASO # 0.1 x10^3/uL (0.0-0.2); BASO % 1 % (0-3); EOS # 0.1 x10^3/uL (0.0-0.7); EOS % 1 % (0-3); HEMATOCRIT 35.1 % (36.0-47.0); HEMOGLOBIN 11.3 g/dL (12.0-15.5); LYMPH # 2.3 x10^3/uL (1.0-4.8); LYMPH % 25 % (24-48); MEAN CORPUSCULAR HEMOGLOBIN 27 pg (25-35); MEAN CORPUSCULAR HGB CONC 32 g/dL (31-37); MEAN CORPUSCULAR VOLUME 84 fL (79-100); MONO # 0.5 x10^3/uL (0.0-1.1); MONO % 5 % (0-9); NEUT # 6.5 x10^3uL (1.8-7.7); NEUT % 69 % (31-73); PLATELET COUNT 282 x10^3/uL (140-400); RED BLOOD COUNT 4.19 x10^6/uL (3.50-5.40); RED CELL DISTRIBUTION WIDTH 15.9 % (11.5-14.5); WHITE BLOOD COUNT 9.4 x10^3/uL (4.0-11.0)
[2018-12-28] MEDS ORDERED: AMPICILLIN SODIUM 2 GM in IV NORMAL SALINE 100ML 100 ML IV ONE (16:00)
[2018-12-28] MEDS ORDERED: fentaNYL PF VIAL 100 MCG/2 ML VIAL IV PRN (16:30)
[2018-12-28] MEDS ORDERED: ROPIVacaine 0.2% PF 10 ML VIAL. ONE ×2 (16:38→17:00)
--- NOTE | 2018-12-28 16:42 | PDOC ---
GENERAL General: 23 yrs old lady [id number] 12/29/18 Came in Labor with contractions Q 2 minute intervals . Admitted as she is in Active Labor. VITAL SIGNS Vital Signs: Vital Signs Date Time Temp Pulse Resp B/P (MAP) Pulse Ox O2 Delivery O2 Flow Rate FiO2 12/28/18 14:41 97.6 77 18 104/64 (77) 98 Room Air 97.6 ALLERGIES Allergies: Allergies Coded Allergies Type Severity Reaction Last Updated Verified No Known Drug Allergies 08/14/17 No MEDS Medications: Current Medications Medications (Trade) Dose Ordered Sig/Mey Start Time Stop Time Status Last Admin Dose Admin Ampicillin Sodium 1 gm/Sodium Chloride 50 ml @ 100 mls/hr Q4H 12/28/18 20:00 Ampicillin Sodium 2 gm/Sodium Chloride 100 ml @ 200 mls/hr 1X ONCE 12/28/18 16:00 12/28/18 16:29 DC 12/28/18 15:33 200 MLS/HR Fentanyl Citrate (Fentanyl 2ml Vial) 50 mcg PRN Q30MIN PRN 12/28/18 16:30 Ibuprofen (Motrin) 800 mg PRN Q6HRS PRN 12/28/18 15:30 Lidocaine HCl (Xylocaine 1% Pf 30ml Vial) 30 ml 1X PRN PRN 12/28/18 15:30 12/30/18 15:29 Oxytocin/Sodium Chloride 500 ml @ 0 mls/hr CONT PRN PRN 12/28/18 15:30 Ringer's Solution 1,000 ml @ 125 mls/hr Q8H 12/28/18 15:30 Sodium Chloride (Normal Saline Flush) 3 ml QSHIFT PRN 12/28/18 15:30 Terbutaline Sulfate (Brethine) 0.25 mg 1X PRN PRN 12/28/18 15:30 12/29/18 15:29 LAB Lab: Laboratory Tests Test 12/28/18 14:00 12/28/18 15:25 Urine Collection Type Unknown Urine Color Yellow Urine Clarity Clear Urine pH 8.5 Urine Specific [place] 1.015 Urine Protein Negative mg/dL (NEG-TRACE) Urine Glucose (UA) Negative mg/dL (NEG) Urine Ketones (Stick) Negative mg/dL (NEG) Urine Blood Negative (NEG) Urine Nitrite Negative (NEG) Urine Bilirubin Negative (NEG) Urine Urobilinogen Dipstick 0.2 mg/dL (0.2 mg/dL) Urine Leukocyte Esterase Negative (NEG) Urine RBC 0 /HPF (0-2) Urine WBC Occ /HPF (0-4) Urine Squamous Epithelial Cells Many /LPF Urine Bacteria Many /HPF (0-FEW) White Blood Count 9.4 x10^3/uL (4.0-11.0) Red Blood Count 4.19 x10^6/uL (3.50-5.40) Hemoglobin 11.3 g/dL (12.0-15.5) Hematocrit 35.1 % (36.0-47.0) Mean Corpuscular Volume 84 fL (79-100) Mean Corpuscular Hemoglobin 27 pg (25-35) Mean Corpuscular Hemoglobin Concent 32 g/dL (31-37) Red Cell Distribution Width 15.9 % (11.5-14.5) Platelet Count 282 x10^3/uL (140-400) Neutrophils (%) (Auto) 69 % (31-73) Lymphocytes (%) (Auto) 25 % (24-48) Monocytes (%) (Auto) 5 % (0-9) Eosinophils (%) (Auto) 1 % (0-3) Basophils (%) (Auto) 1 % (0-3) Neutrophils # (Auto) 6.5 x10^3uL (1.8-7.7) Lymphocytes # (Auto) 2.3 x10^3/uL (1.0-4.8) Monocytes # (Auto) 0.5 x10^3/uL (0.0-1.1) Eosinophils # (Auto) 0.1 x10^3/uL (0.0-0.7) Basophils # (Auto) 0.1 x10^3/uL (0.0-0.2) ASSESSMENT & PLAN A&P Vital signs stable. Cervix dilated to 3 cms. Plan Vaginal Delivery. DAYSI ESPINO MD December 28, 2018 16:42
[2018-12-28] MEDS ORDERED: MAG HYDROX/ALUMINUM HYD/SIMETH 30 ML ORAL.SUSP PO PRN (16:45)
[2018-12-28] MEDS ORDERED: SIMETHICONE 80 MG TAB.CHEW PO PRN (16:45)
[2018-12-28] MEDS ORDERED: HYDROCORTISONE 1% TOPICAL OINTMENT 30GM TUBE. TP PRN (16:45)
[2018-12-28] MEDS ORDERED: ACETAMINOPHEN 325 MG TABLET. PO PRN (16:45)
[2018-12-28] MEDS ORDERED: PHENYLEPH/MINERAL OIL/PETROLAT RECTAL OINTMENT 28GM TUBE. RC PRN (16:45)
[2018-12-28] MEDS ORDERED: MMR per PROTOCOL. MC PRN (16:45)
[2018-12-28] MEDS ORDERED: BENZOCAINE 20% TOPICAL AEROSOL SPRAY 57GM CAN. TP PRN (16:45)
[2018-12-28] MEDS ORDERED: DOCUSATE SODIUM 100 MG CAPSULE. PO PRN (16:45)
[2018-12-28] MEDS ORDERED: diphenhydrAMINE HCL 25 MG CAPSULE PO PRN (16:45)
[2018-12-28] MEDS ORDERED: MAGNESIUM HYDROXIDE 2,400 MG/30 ML ORAL.SUSP. PO PRN (16:45)
[2018-12-28] MEDS ORDERED: ZOLPIDEM 5 MG TABLET. PO PRN (16:45)
[2018-12-28] MEDS: IBUPROFEN 200 MG TABLET. PO SCH (20:00)
[2018-12-28] MEDS ORDERED: AMPICILLIN SODIUM 1 GM in IV NORMAL SALINE 50ML 50 ML IV SCH (20:00)
[2018-12-28 21:00] VITALS: BP 98/61
[2018-12-28 22:30] VITALS: BP 99/58
[2018-12-29 02:00] VITALS: BP 100/60
[2018-12-29] MEDS: IBUPROFEN 200 MG TABLET. PO SCH ×3 (03:23→16:56)
--- NOTE | 2018-12-29 07:57 | PDOC ---
GENERAL General: Patient feeling ok. Wants to take Shower this AM. No fever. VITAL SIGNS Vital Signs: Vital Signs Date Time Temp Pulse Resp B/P (MAP) Pulse Ox O2 Delivery O2 Flow Rate FiO2 12/29/18 02:00 98.0 100/60 (73) 97 98.0 12/28/18 22:30 80 12/28/18 21:00 16 12/28/18 14:41 Room Air I & O I & O Intake and Output 12/29/18 07:00 Intake Total 240 ml Balance 240 ml Intake Oral 240 ml # Voids 2 ALLERGIES Allergies: Allergies Coded Allergies Type Severity Reaction Last Updated Verified No Known Drug Allergies 08/14/17 No MEDS Medications: Current Medications Medications (Trade) Dose Ordered Sig/Mey Start Time Stop Time Status Last Admin Dose Admin Acetaminophen (Tylenol) 650 mg PRN Q6HRS PRN 12/28/18 16:45 Al Hydroxide/Mg Hydroxide (Mylanta Plus Xs) 30 ml PRN Q4HRS PRN 12/28/18 16:45 Ampicillin Sodium 1 gm/Sodium Chloride 50 ml @ 100 mls/hr Q4H 12/28/18 20:00 12/28/18 21:50 DC Ampicillin Sodium 2 gm/Sodium Chloride 100 ml @ 200 mls/hr 1X ONCE 12/28/18 16:00 12/28/18 16:29 DC 12/28/18 15:33 200 MLS/HR Benzocaine (Americaine) 1 spray PRN QID PRN 12/28/18 16:45 Diphenhydramine HCl (Benadryl) 25 mg PRN Q6HRS PRN 12/28/18 16:45 Docusate Sodium (Colace) 100 mg PRN BID PRN 12/28/18 16:45 Fentanyl Citrate (Fentanyl 2ml Vial) 50 mcg PRN Q30MIN PRN 12/28/18 16:30 12/28/18 16:44 50 MCG Ferrous Sulfate (Feosol) 325 mg BIDWMEALS 12/29/18 08:00 Hydrocortisone (Cortaid) 1 darby PRN QID PRN 12/28/18 16:45 Ibuprofen (Motrin) 600 mg Q6HRS 12/28/18 18:00 12/29/18 03:23 600 MG Info (Do NOT chart on this placeholder) 1 ea 1X PRN PRN 12/28/18 16:45 Lidocaine HCl (Xylocaine 1% Pf 30ml Vial) 30 ml 1X PRN PRN 12/28/18 15:30 12/30/18 15:29 Magnesium Hydroxide (Milk Of Magnesia) 2,400 mg PRN DAILY PRN 12/28/18 16:45 Oxycodone/ Acetaminophen (Percocet 5/325) 2 tab PRN Q4HRS PRN 12/28/18 16:45 Oxytocin/Sodium Chloride 500 ml @ 62.5 mls/hr CONT PRN 12/28/18 16:45 12/29/18 00:44 DC Phenyleph/Shark Oil/Min Oil/Petrol (Preparation H) 1 darby PRN QID PRN 12/28/18 16:45 Ringer's Solution 1,000 ml @ 125 mls/hr Q8H 12/28/18 15:30 12/28/18 16:44 125 MLS/HR Ropivacaine (Naropin 0.2%) 10 ml STK-MED ONCE 12/28/18 16:38 12/28/18 16:39 DC Simethicone (Gas-X) 80 mg PRN AFTMEALHC PRN 12/28/18 16:45 Sodium Chloride (Normal Saline Flush) 10 ml QSHIFT PRN 12/28/18 16:45 Terbutaline Sulfate (Brethine) 0.25 mg 1X PRN PRN 12/28/18 15:30 12/29/18 15:29 Zolpidem Tartrate (Ambien) 5 mg PRN QHS PRN 12/28/18 16:45 LAB Lab: Laboratory Tests Test 12/28/18 14:00 12/28/18 15:25 12/29/18 04:25 Urine Collection Type Unknown Urine Color Yellow Urine Clarity Clear Urine pH 8.5 Urine Specific [place] 1.015 Urine Protein Negative mg/dL (NEG-TRACE) Urine Glucose (UA) Negative mg/dL (NEG) Urine Ketones (Stick) Negative mg/dL (NEG) Urine Blood Negative (NEG) Urine Nitrite Negative (NEG) Urine Bilirubin Negative (NEG) Urine Urobilinogen Dipstick 0.2 mg/dL (0.2 mg/dL) Urine Leukocyte Esterase Negative (NEG) Urine RBC 0 /HPF (0-2) Urine WBC Occ /HPF (0-4) Urine Squamous Epithelial Cells Many /LPF Urine Bacteria Many /HPF (0-FEW) White Blood Count 9.4 x10^3/uL (4.0-11.0) Red Blood Count 4.19 x10^6/uL (3.50-5.40) Hemoglobin 11.3 g/dL (12.0-15.5) Hematocrit 35.1 % (36.0-47.0) 30.9 % (36.0-47.0) Mean Corpuscular Volume 84 fL (79-100) Mean Corpuscular Hemoglobin 27 pg (25-35) Mean Corpuscular Hemoglobin Concent 32 g/dL (31-37) Red Cell Distribution Width 15.9 % (11.5-14.5) Platelet Count 282 x10^3/uL (140-400) Neutrophils (%) (Auto) 69 % (31-73) Lymphocytes (%) (Auto) 25 % (24-48) Monocytes (%) (Auto) 5 % (0-9) Eosinophils (%) (Auto) 1 % (0-3) Basophils (%) (Auto) 1 % (0-3) Neutrophils # (Auto) 6.5 x10^3uL (1.8-7.7) Lymphocytes # (Auto) 2.3 x10^3/uL (1.0-4.8) Monocytes # (Auto) 0.5 x10^3/uL (0.0-1.1) Eosinophils # (Auto) 0.1 x10^3/uL (0.0-0.7) Basophils # (Auto) 0.1 x10^3/uL (0.0-0.2) Treponema pallidum Antibody Nonreactive (Nonreactive) ASSESSMENT & PLAN A&P Abdomen soft. Uterus firm. Lochia normal. DAYSI ESPINO MD December 29, 2018 07:57
[2018-12-29] MEDS ORDERED: FERROUS SULFATE 325 MG TABLET. PO SCH (08:00)
[2018-12-29] MEDS: oxyCODONE/APAP 5/325 1 TAB TABLET PO PRN ×2 (08:47→20:51)
[2018-12-29 12:13] VITALS: BP 103/66
--- NOTE | 2018-12-29 12:52 | CONS ---
DATE OF CONSULTATION: This patient is a 23-year-old [place] lady who is a 3, para 1, history of 1 miscarriage, EDC 12/29/2018, was seen in the [facility] one time and then the patient came in labor with history of having contractions and cervix 3 cm dilated. On admission to the hospital, she did make a good progress of labor, got to complete dilatation and she received labor epidural block and had spontaneous vaginal delivery. A live female was delivered at 18:20 hours with the score of 8, 9 and 9 without any problem. Cord was clamped and cut. Cord pHs were sent for. Cord blood was taken. Placenta removed. Visualization of the pelvic area revealed no tears in the perineum. She did receive Pitocin after delivery of the placenta. Baby was referred to flare maker for further care and treatment. Mother tolerated the delivery well. No complications at this time. Estimated blood loss about 200 mL. DAYSI ESPINO MD DR: ELVIS/nts JOB#: [id number] / [id number]
[2018-12-29 17:02] VITALS: BP 102/66
[2018-12-29 20:15] VITALS: BP 103/64
[2018-12-30 05:59] VITALS: BP 100/48
--- NOTE | 2018-12-30 06:30 | PDOC ---
GENERAL General: Pt doing ok No problems. VITAL SIGNS Vital Signs: Vital Signs Date Time Temp Pulse Resp B/P (MAP) Pulse Ox O2 Delivery O2 Flow Rate FiO2 12/30/18 05:59 97.9 75 100/48 (65) 97 Room Air 97.9 12/29/18 21:55 18 ALLERGIES Allergies: Allergies Coded Allergies Type Severity Reaction Last Updated Verified No Known Drug Allergies 08/14/17 No MEDS Medications: Current Medications Medications (Trade) Dose Ordered Sig/Mey Start Time Stop Time Status Last Admin Dose Admin Acetaminophen (Tylenol) 650 mg PRN Q6HRS PRN 12/28/18 16:45 Al Hydroxide/Mg Hydroxide (Mylanta Plus Xs) 30 ml PRN Q4HRS PRN 12/28/18 16:45 Ampicillin Sodium 1 gm/Sodium Chloride 50 ml @ 100 mls/hr Q4H 12/28/18 20:00 12/28/18 21:50 DC Ampicillin Sodium 2 gm/Sodium Chloride 100 ml @ 200 mls/hr 1X ONCE 12/28/18 16:00 12/28/18 16:29 DC 12/28/18 15:33 200 MLS/HR Benzocaine (Americaine) 1 spray PRN QID PRN 12/28/18 16:45 Diphenhydramine HCl (Benadryl) 25 mg PRN Q6HRS PRN 12/28/18 16:45 Docusate Sodium (Colace) 100 mg PRN BID PRN 12/28/18 16:45 12/29/18 08:47 100 MG Fentanyl Citrate (Fentanyl 2ml Vial) 50 mcg PRN Q30MIN PRN 12/28/18 16:30 12/29/18 18:17 DC 12/28/18 16:44 50 MCG Ferrous Sulfate (Feosol) 325 mg BIDWMEALS 12/29/18 08:00 12/29/18 18:17 DC Hydrocortisone (Cortaid) 1 darby PRN QID PRN 12/28/18 16:45 Ibuprofen (Motrin) 600 mg Q6HRS 12/28/18 18:00 12/29/18 16:56 600 MG Info (Do NOT chart on this placeholder) 1 ea 1X PRN PRN 12/28/18 16:45 12/29/18 18:17 DC Lidocaine HCl (Xylocaine 1% Pf 30ml Vial) 30 ml 1X PRN PRN 12/28/18 15:30 12/29/18 18:17 DC Magnesium Hydroxide (Milk Of Magnesia) 2,400 mg PRN DAILY PRN 12/28/18 16:45 12/29/18 20:51 2,400 MG Oxycodone/ Acetaminophen (Percocet 5/325) 2 tab PRN Q4HRS PRN 12/28/18 16:45 12/29/18 20:51 1 TAB Oxytocin/Sodium Chloride 500 ml @ 62.5 mls/hr CONT PRN 12/28/18 16:45 12/29/18 00:44 DC Phenyleph/Shark Oil/Min Oil/Petrol (Preparation H) 1 darby PRN QID PRN 12/28/18 16:45 Ringer's Solution 1,000 ml @ 125 mls/hr Q8H 12/28/18 15:30 12/29/18 18:17 DC 12/28/18 16:44 125 MLS/HR Ropivacaine (Naropin 0.2%) 10 ml STK-MED ONCE 12/28/18 16:38 12/28/18 16:39 DC Simethicone (Gas-X) 80 mg PRN AFTMEALHC PRN 12/28/18 16:45 Sodium Chloride (Normal Saline Flush) 10 ml QSHIFT PRN 12/28/18 16:45 12/29/18 18:17 DC Terbutaline Sulfate (Brethine) 0.25 mg 1X PRN PRN 12/28/18 15:30 12/29/18 15:29 DC Zolpidem Tartrate (Ambien) 5 mg PRN QHS PRN 12/28/18 16:45 ASSESSMENT & PLAN A&P Patient to go home today. Will see her in office in 6 weeks. DAYSI ESPINO MD December 30, 2018 06:30
[2018-12-30 10:54] VITALS: BP 114/75
[2018-12-30 15:49] VITALS: BP 102/78
--- NOTE | 2018-12-30 18:28 | NUR ---
home instructions gone over with pt, no questions on home care. states going to [facility] for f/u
--- NOTE | 2019-01-23 23:05 | DS ---
DATE OF DISCHARGE: 12/30/2018 SUBJECTIVE: This patient is a 23-year-old [place] lady, who is a 3, para 1, history of 1 miscarriage, EDC 12/29/2018, admitted to the hospital on 12/28/2018 with a history of having contractions and she was in the [facility] for her care. On admission to the hospital, she did make a good progress of labor. OBJECTIVE: VITAL SIGNS: Stable. Term size uterus. heart tones are 140 per minute. Cervix was 3 cm when she came in and she got to complete dilatation very fast. She did receive labor epidural block and had a spontaneous vaginal delivery. Live female infant was delivered at 1820 hours on 12/28/2018 with good scores of 8, 9 and 9 without any problem. HOSPITAL COURSE: She had an uneventful course, no complications. The patient was dismissed to home care with advice to come back to the office in 6 weeks for further care and treatment. DIAGNOSIS: 3, para 1, term , spontaneous vaginal delivery. She will be seen in the office in 6 weeks for further care and treatment. DAYSI ESPINO MD DR: ELVIS/candelaria JOB#: [id number] / [id number]
== END 2018-12-30 18:35 | disposition home or self-care (01) | DRG 807 ==
LOC: OBSVTOIN 13:47 → 3 SO LND 13:47 → 3 NORTH 21:00
PROVIDERS: ADMIT Obstetrics & Gynecology; ATTEND Obstetrics & Gynecology
PROC: 10E0XZZ Delivery of Products of Conception, External Approach (ICD-10-PCS; principal; 2018-12-29)
PROC: 00HU33Z Insertion of Infusion Device into Spinal Canal, Percutaneous Approach (ICD-10-PCS; 2018-12-29)
PROC: 3E0R3BZ Introduction of Anesthetic Agent into Spinal Canal, Percutaneous Approach (ICD-10-PCS; 2018-12-29)
PROC: 3E0 Administration, Physiological Systems and Anatomical Regions, Introduction (ICD-10-PCS; 2018-12-29)
DX: O80 Encounter for full-term uncomplicated delivery (principal); Z37.0 Single live birth; Z3A.00 Weeks of gestation of pregnancy not specified
CPT/HCPCS: 36415; 81001; 85014; 85025; 86592; 86850; 86900; 86901; 87086; 96365; 96367; 96375; J0290; J2590; J2795; J3010; J7120; 99285-25

== ENCOUNTER 2019-06-05 20:23 | Emergency (ER) | payer SELFPAY ==
[~2019-06-05] VITALS: Ht 154.9 cm; Wt 45.4 kg
--- NOTE | 2019-06-05 20:51 | PHYS DOC ---
Past Medical History Past Medical History: Asthma Past Surgical History: No Surgical History Additional Past Surgical Histo: D&C Alcohol Use: None Drug Use: None Adult General Chief Complaint Chief Complaint: ABDOMINAL PAIN IN HPI HPI Patient is a 24 year old female who presents with states that her last menstrual period was April 01, 2019. Patient states 3 days ago she started having dark brown discharge and then small amount of red bleeding with small clots. Patient states she did not have to wear a pad. Patient states last night it stopped. Patient states that when she would urinate she would also see blood. Patient states at times she has pain with urination but is not every time she urinates. Patient states she's been vomiting a lot since she's been and has not been able to eat or drink a lot. Patient states she has low mid intermittent abdominal pain as cramping. Patient currently rates her pain a 7 out of 10 in the low mid abdomen. Patient states she just made her first doctor's appointment at the [facility]. Patient has miscarriage twice in the past and has 2 living kids. Patient denies any other past medical history. Review of Systems Review of Systems GI: low mid abdominal pain, nausea, vomiting, denies bloody stools or diarrhea [] : Vaginal bleeding, dysuria or hematuria [] All other systems were reviewed and found to be within normal limits, except as documented in this note. Current Medications Current Medications Current Medications Medications (Trade) Dose Ordered Sig/Mey Start Time Stop Time Status Last Admin Dose Admin Ondansetron HCl (Zofran) 4 mg 1X ONCE 06/05/19 21:15 06/05/19 21:16 DC 06/05/19 20:58 4 MG Sodium Chloride 1,000 ml @ 1,000 mls/hr 1X ONCE 06/05/19 21:15 06/05/19 22:14 DC 06/05/19 20:58 1,000 MLS/HR Allergies Allergies Allergies Coded Allergies Type Severity Reaction Last Updated Verified No Known Drug Allergies 08/14/17 No Physical Exam Physical Exam Constitutional: Well developed, well nourished, no acute distress, non-toxic appearance. [ Cardiovascular:Heart rate regular rhythm, no murmur [] Lungs & Thorax: Bilateral breath sounds clear to auscultation [] Abdomen: Bowel sounds normal, soft, no tenderness, no masses, no pulsatile masses. [] Skin: Warm, dry, no erythema, no rash. [] Back: No tenderness, no CVA tenderness. [] Extremities: No tenderness, no cyanosis, no clubbing, ROM intact, no edema. [] Neurologic: Alert and oriented X 3, normal motor function, normal sensory function, no focal deficits noted. [] Psychologic: Affect normal, judgement normal, mood normal. Normal Physical Exam[] Current Patient Data Vital Signs Vital Signs Date Time Temp Pulse Resp B/P (MAP) Pulse Ox O2 Delivery O2 Flow Rate FiO2 06/05/19 20:30 98.5 97 16 134/69 (90) 100 Room Air 98.5 Lab Values Laboratory Tests Test 06/05/19 20:50 06/05/19 20:55 06/05/19 20:56 White Blood Count 9.2 x10^3/uL (4.0-11.0) Red Blood Count 4.03 x10^6/uL (3.50-5.40) Hemoglobin 13.0 g/dL (12.0-15.5) Hematocrit 37.5 % (36.0-47.0) Mean Corpuscular Volume 93 fL (79-100) Mean Corpuscular Hemoglobin 32 pg (25-35) Mean Corpuscular Hemoglobin Concent 35 g/dL (31-37) Red Cell Distribution Width 13.7 % (11.5-14.5) Platelet Count 335 x10^3/uL (140-400) Neutrophils (%) (Auto) 61 % (31-73) Lymphocytes (%) (Auto) 31 % (24-48) Monocytes (%) (Auto) 7 % (0-9) Eosinophils (%) (Auto) 1 % (0-3) Basophils (%) (Auto) 0 % (0-3) Neutrophils # (Auto) 5.6 x10^3/uL (1.8-7.7) Lymphocytes # (Auto) 2.8 x10^3/uL (1.0-4.8) Monocytes # (Auto) 0.6 x10^3/uL (0.0-1.1) Eosinophils # (Auto) 0.1 x10^3/uL (0.0-0.7) Basophils # (Auto) 0.0 x10^3/uL (0.0-0.2) Maternal Serum HCG Beta Subunit 41480 mIU/mL (0-5) H Sodium Level 139 mmol/L (136-145) Potassium Level 3.5 mmol/L (3.5-5.1) Chloride Level 103 mmol/L (98-107) Carbon Dioxide Level 25 mmol/L (21-32) Anion Gap 11 (6-14) Blood Urea Nitrogen 9 mg/dL (7-20) Creatinine 0.5 mg/dL (0.6-1.0) L Estimated GFR (Cockcroft-Gault) 152.9 BUN/Creatinine Ratio 18 (6-20) Glucose Level 87 mg/dL (70-99) Calcium Level 9.3 mg/dL (8.5-10.1) Total Bilirubin 0.2 mg/dL (0.2-1.0) Aspartate Amino Transferase (AST) 16 U/L (15-37) Alanine Aminotransferase (ALT) 9 U/L (14-59) L Alkaline Phosphatase 44 U/L (46-116) L Total Protein 7.9 g/dL (6.4-8.2) Albumin 4.2 g/dL (3.4-5.0) Albumin/Globulin Ratio 1.1 (1.0-1.7) Urine Collection Type Unknown Urine Color Yellow Urine Clarity Clear Urine pH 6.0 Urine Specific [place] 1.025 Urine Protein Negative mg/dL (NEG-TRACE) Urine Glucose (UA) Negative mg/dL (NEG) Urine Ketones (Stick) Negative mg/dL (NEG) Urine Blood Negative (NEG) Urine Nitrite Negative (NEG) Urine Bilirubin Negative (NEG) Urine Urobilinogen Dipstick 0.2 mg/dL (0.2 mg/dL) Urine Leukocyte Esterase Negative (NEG) Urine RBC Occ /HPF (0-2) Urine WBC 1-4 /HPF (0-4) Urine Squamous Epithelial Cells Mod /LPF Urine Bacteria Few /HPF (0-FEW) Urine Mucus Marked /LPF Urine Opiates Screen Neg (NEG) Urine Methadone Screen Neg (NEG) Urine Barbiturates Neg (NEG) Urine Phencyclidine Screen Neg (NEG) Urine Amphetamine/Methamphetamine Neg (NEG) Urine Benzodiazepines Screen Neg (NEG) Urine Cocaine Screen Neg (NEG) Urine Cannabinoids Screen Pos (NEG) Urine Ethyl Alcohol Neg (NEG) POC Urine HCG, Qualitative Hcg positive (Negative) Laboratory Tests 06/05/19 20:50 Laboratory Tests 06/05/19 20:50 Microbiology 06/05/19 Wet Prep - Final, Complete Laboratory Tests Test 06/05/19 20:50 06/05/19 20:55 06/05/19 20:56 White Blood Count 9.2 x10^3/uL (4.0-11.0) Red Blood Count 4.03 x10^6/uL (3.50-5.40) Hemoglobin 13.0 g/dL (12.0-15.5) Hematocrit 37.5 % (36.0-47.0) Mean Corpuscular Volume 93 fL (79-100) Mean Corpuscular Hemoglobin 32 pg (25-35) Mean Corpuscular Hemoglobin Concent 35 g/dL (31-37) Red Cell Distribution Width 13.7 % (11.5-14.5) Platelet Count 335 x10^3/uL (140-400) Neutrophils (%) (Auto) 61 % (31-73) Lymphocytes (%) (Auto) 31 % (24-48) Monocytes (%) (Auto) 7 % (0-9) Eosinophils (%) (Auto) 1 % (0-3) Basophils (%) (Auto) 0 % (0-3) Neutrophils # (Auto) 5.6 x10^3/uL (1.8-7.7) Lymphocytes # (Auto) 2.8 x10^3/uL (1.0-4.8) Monocytes # (Auto) 0.6 x10^3/uL (0.0-1.1) Eosinophils # (Auto) 0.1 x10^3/uL (0.0-0.7) Basophils # (Auto) 0.0 x10^3/uL (0.0-0.2) Maternal Serum HCG Beta Subunit 29063 mIU/mL (0-5) H Sodium Level 139 mmol/L (136-145) Potassium Level 3.5 mmol/L (3.5-5.1) Chloride Level 103 mmol/L (98-107) Carbon Dioxide Level 25 mmol/L (21-32) Anion Gap 11 (6-14) Blood Urea Nitrogen 9 mg/dL (7-20) Creatinine 0.5 mg/dL (0.6-1.0) L Estimated GFR (Cockcroft-Gault) 152.9 BUN/Creatinine Ratio 18 (6-20) Glucose Level 87 mg/dL (70-99) Calcium Level 9.3 mg/dL (8.5-10.1) Total Bilirubin 0.2 mg/dL (0.2-1.0) Aspartate Amino Transferase (AST) 16 U/L (15-37) Alanine Aminotransferase (ALT) 9 U/L (14-59) L Alkaline Phosphatase 44 U/L (46-116) L Total Protein 7.9 g/dL (6.4-8.2) Albumin 4.2 g/dL (3.4-5.0) Albumin/Globulin Ratio 1.1 (1.0-1.7) Urine Collection Type Unknown Urine Color Yellow Urine Clarity Clear Urine pH 6.0 Urine Specific [place] 1.025 Urine Protein Negative mg/dL (NEG-TRACE) Urine Glucose (UA) Negative mg/dL (NEG) Urine Ketones (Stick) Negative mg/dL (NEG) Urine Blood Negative (NEG) Urine Nitrite Negative (NEG) Urine Bilirubin Negative (NEG) Urine Urobilinogen Dipstick 0.2 mg/dL (0.2 mg/dL) Urine Leukocyte Esterase Negative (NEG) Urine RBC Occ /HPF (0-2) Urine WBC 1-4 /HPF (0-4) Urine Squamous Epithelial Cells Mod /LPF Urine Bacteria Few /HPF (0-FEW) Urine Mucus Marked /LPF Urine Opiates Screen Neg (NEG) Urine Methadone Screen Neg (NEG) Urine Barbiturates Neg (NEG) Urine Phencyclidine Screen Neg (NEG) Urine Amphetamine/Methamphetamine Neg (NEG) Urine Benzodiazepines Screen Neg (NEG) Urine Cocaine Screen Neg (NEG) Urine Cannabinoids Screen Pos (NEG) Urine Ethyl Alcohol Neg (NEG) POC Urine HCG, Qualitative Hcg positive (Negative) Laboratory Tests 06/05/19 20:50 Laboratory Tests 06/05/19 20:50 Microbiology 06/05/19 Wet Prep - Final, Complete EKG EKG [] Radiology/Procedures Radiology/Procedures [] Impressions: [facility] [address] [place] [address] IMAGING REPORT Signed PATIENT: MIA WEAVER MACCOUNT: [id number] : 1995 LOCATION: ER AGE: 24 SEX: F EXAM STATUS: REG ER ORD. PHYSICIAN: KIMBER MOHR APRN REASON: bleeding in PROCEDURE: OB < 14 WKS Exam: Ultrasound OB less than 14 weeks Indication: Bleeding in Technique: Real-time grayscale and color Doppler images of the pelvis were obtained by the department lawn maintenance worker. Comparisons: None FINDINGS: Uterus measures 10.4 x 7.9 x 6.4 cm. Within the uterus there is a gestational sac with pole and yolk sac. pole measures 1.8 cm in length. This corresponds to a gestational age of 8 weeks 3 days. heart rate is measured 169 bpm. Small perigestational bleed is noted. Right ovary measures 2.1 x 1.8 x 1.4 cm. Left ovary measures 3.4 x 1.9 x 1.5 cm. Vascular flow is noted within the ovaries bilaterally. IMPRESSION: 1. Single live intrauterine gestation of 8 weeks 3 days by today's ultrasound discordant with LMP. Estimated due date by today's ultrasound is 01/12/2020. 2. Small subchorionic hemorrhage. 3. Dedicated survey is recommended at 18-20 weeks. Electronically signed by: Stephanie Valdivia MD (06/05/2019 10:19 PM) [facility] DICTATED and SIGNED BY: STEPHANIE VALDIVIA MD DATE: 06/05/192218 Course & Med Decision Making Course & Med Decision Making Patient is a 24 year old female who presents with states that her last menstrual period was April 01, 2019. Patient states 3 days ago she started having dark brown discharge and then small amount of red bleeding with small clots. Patient states she did not have to wear a pad. Patient states last night it stopped. Patient states that when she would urinate she would also see blood. Patient states at times she has pain with urination but is not every time she urinates. Patient states she's been vomiting a lot since she's been and has not been able to eat or drink a lot. Patient states she has low mid intermittent abdominal pain as cramping. Patient currently rates her pain a 7 out of 10 in the low mid abdomen. Patient states she just made her first doctor's appointment at the [facility]. Patient has miscarriage twice in the past and has 2 living kids. Patient denies any other past medical history. Work and oriented. Ambulatory with a steady gait. Skin pink warm and dry. Abdomen is soft and nontender. Vital sign within normal limits and she is afebrile. Patient is refusing prophylactic treatment for sexual transmitted diseases at this time. Patient is told that she'll be called only if her chlamydia and gonorrhea come back positive. Lab has called to tell me that a blood type is already on file and that the patient is O+. Wet prep show clue cells. Urine is not infected. Blood work unremarkable. Positive for Marijuana. US shows: 1. Single live intrauterine gestation of 8 weeks 3 days by today's ultrasound discordant with LMP. Estimated due date by today's ultrasound is 01/12/2020. 2. Small subchorionic hemorrhage. 3. Dedicated survey is recommended at 18-20 weeks. Pelvic Exam: Bobj Developer present Abdomen: Nontender External Genitalia: Normal Skin Speculum: Normal vaginal mucosa, Brown cervical discharge Bimanual: No adnexal masses or tenderness, No CMT Cervix: Os closed Dragon Disclaimer Dragon Disclaimer This electronic medical record was generated, in whole or in part, using a voice recognition dictation system. Departure Departure Impression: Primary Impression: Abdominal pain affecting Additional Impressions: Vaginal bleeding affecting early Bacterial vaginosis Disposition: 01 HOME, SELF-CARE Condition: STABLE Referrals: UNKNOWN PCP NAME (PCP) Patient Instructions: ABCs of , Abdominal Pain During , Bacterial Vaginosis, Subchorionic Hematoma, Vaginal Bleeding During , [id number] Additional Instructions: Follow up with your OB doctor as soon as possible. No sexual intercourse until you are seen by your OB doctor. Drink plenty of fluids. Scripts Ondansetron (ONDANSETRON ODT) 4 Mg Tab.rapdis 1 TAB PO PRN Q6-8HRS, #20 TAB Prov: KIMBER MOHR APRN 06/05/19 Metronidazole (METRONIDAZOLE) 500 Mg Tablet 1 TAB PO BID for 7 Days, #14 TAB 0 Refills Prov: KIMBER MOHR APRN 06/05/19 Problem Qualifiers KIMBER MOHR APRN Jun 05, 2019 20:51
[2019-06-05 21:03] LABS: BASO % 0 % (0-3); EOS # 0.1 x10^3/uL (0.0-0.7); EOS % 1 % (0-3); HEMATOCRIT 37.5 % (36.0-47.0); LYMPH # 2.8 x10^3/uL (1.0-4.8); LYMPH % 31 % (24-48); MEAN CORPUSCULAR HEMOGLOBIN 32 pg (25-35); MEAN CORPUSCULAR HGB CONC 35 g/dL (31-37); MEAN CORPUSCULAR VOLUME 93 fL (79-100); MONO # 0.6 x10^3/uL (0.0-1.1); MONO % 7 % (0-9); NEUT # 5.6 x10^3/uL (1.8-7.7); NEUT % 61 % (31-73); PLATELET COUNT 335 x10^3/uL (140-400); RED BLOOD COUNT 4.03 x10^6/uL (3.50-5.40); RED CELL DISTRIBUTION WIDTH 13.7 % (11.5-14.5); WHITE BLOOD COUNT 9.2 x10^3/uL (4.0-11.0)
[2019-06-05 21:06] LABS: BILIRUBIN,URINE NEGATIVE (NEG); CLARITY,URINE CLEAR; COLOR,URINE YELLOW; NITRITE,URINE NEGATIVE (NEG); PROTEIN,URINE NEGATIVE (NEG-TRACE); UROBILINOGEN,URINE 0.2 mg/dL (0.2 mg/dL)
[2019-06-05 21:10] LABS: BACTERIA,URINE FEW /HPF (0-FEW); RBC,URINE OCC /HPF (0-2)
[2019-06-05 21:11] LABS: BARBITURATES NEG (NEG); BENZODIAZEPINES NEG (NEG); CANNABINOIDS POS (NEG); COCAINE NEG (NEG); METHADONE NEG (NEG); OPIATES NEG (NEG); PHENCYCLIDINE NEG (NEG); SQUAMOUS EPITHELIAL CELL,UR MOD /LPF
[2019-06-05 21:12] LABS: AMPHETAMINE/METHAMPHETAMINE NEG (NEG)
[2019-06-05 21:13] LABS: CALCIUM 9.3 mg/dL (8.5-10.1); CREATININE 0.5 mg/dL (0.6-1.0); GFR 152.9; POTASSIUM 3.5 mmol/L (3.5-5.1)
[2019-06-05] MEDS ORDERED: ONDANSETRON PF 4 MG/2 ML VIAL. IVP ONE (21:15)
[2019-06-05] MEDS ORDERED: IV NORMAL SALINE 1000ML BAG 1,000 ML IV ONE (21:15)
[2019-06-05 21:19] LABS: ALBUMIN 4.2 g/dL (3.4-5.0); ALBUMIN/GLOBULIN RATIO 1.1 (1.0-1.7); TOTAL BILIRUBIN 0.2 mg/dL (0.2-1.0); TOTAL PROTEIN 7.9 g/dL (6.4-8.2)
[2019-06-05] MEDS ORDERED: METR-34 PO (22:01)
[2019-06-05] MEDS ORDERED: ONDA4TAB12 PO (22:01)
[2019-06-05 22:10] VITALS: BP 104/58
--- NOTE | 2019-06-05 22:21 | RAD ---
Exam: Ultrasound OB less than 14 weeks Indication: Bleeding in Technique: Real-time grayscale and color Doppler images of the pelvis were obtained by the department obstetrics gynecology physician. Comparisons: None FINDINGS: Uterus measures 10.4 x 7.9 x 6.4 cm. Within the uterus there is a gestational sac with pole and yolk sac. pole measures 1.8 cm in length. This corresponds to a gestational age of 8 weeks 3 days. heart rate is measured 169 bpm. Small perigestational bleed is noted. Right ovary measures 2.1 x 1.8 x 1.4 cm. Left ovary measures 3.4 x 1.9 x 1.5 cm. Vascular flow is noted within the ovaries bilaterally. IMPRESSION: 1. Single live intrauterine gestation of 8 weeks 3 days by today's ultrasound discordant with LMP. Estimated due date by today's ultrasound is 01/12/2020. 2. Small subchorionic hemorrhage. 3. Dedicated survey is recommended at 18-20 weeks. Electronically signed by: Stephanie Fletcher MD (06/05/2019 10:19 PM) [facility]
[2019-06-07 18:09] LABS: GC PROBE Negative (Negative)
== END 2019-06-05 22:35 | disposition home or self-care (01) ==
LOC: ER 20:23
DX: O23.591 Infection of other part of genital tract in pregnancy, first trimester (principal); B96.89 Other specified bacterial agents as the cause of diseases classified elsewhere; O99.511 Diseases of the respiratory system complicating pregnancy, first trimester; J45.909 Unspecified asthma, uncomplicated; Z3A.08 8 weeks gestation of pregnancy
CPT/HCPCS: 36415; 76801; 80053; 80307; 81001; 81025; 84702; 85025; 87491; 87591; 96361; 96374; 99285; J2405; J7030; Q0111

== ENCOUNTER 2019-06-13 21:37 | Emergency (ER) | payer SELFPAY ==
[~2019-06-13] VITALS: Ht 162.6 cm; Wt 46.3 kg
[~2019-06-13 21:37] MED LIST changes: +ONDA4TAB12 PO
[2019-06-13 22:00] VITALS: BP 114/67
[2019-06-13 22:56] LABS: BILIRUBIN,URINE NEGATIVE (NEG); CLARITY,URINE CLEAR; COLOR,URINE YELLOW; NITRITE,URINE NEGATIVE (NEG); PROTEIN,URINE NEGATIVE (NEG-TRACE); UROBILINOGEN,URINE 0.2 mg/dL (0.2 mg/dL)
[2019-06-13 23:04] LABS: BACTERIA,URINE 0 /HPF (0-FEW); RBC,URINE RARE /HPF (0-2); SQUAMOUS EPITHELIAL CELL,UR MOD /LPF
[2019-06-13 23:14] LABS: BASO % 0 % (0-3); EOS # 0.1 x10^3/uL (0.0-0.7); EOS % 2 % (0-3); HEMATOCRIT 38.6 % (36.0-47.0); HEMOGLOBIN 13.2 g/dL (12.0-15.5); LYMPH # 2.7 x10^3/uL (1.0-4.8); LYMPH % 31 % (24-48); MEAN CORPUSCULAR HEMOGLOBIN 32 pg (25-35); MEAN CORPUSCULAR HGB CONC 34 g/dL (31-37); MEAN CORPUSCULAR VOLUME 94 fL (79-100); MONO # 0.6 x10^3/uL (0.0-1.1); MONO % 7 % (0-9); NEUT # 5.2 x10^3/uL (1.8-7.7); NEUT % 60 % (31-73); PLATELET COUNT 307 x10^3/uL (140-400); RED CELL DISTRIBUTION WIDTH 13.9 % (11.5-14.5); WHITE BLOOD COUNT 8.7 x10^3/uL (4.0-11.0)
[2019-06-13 23:22] LABS: CALCIUM 9.1 mg/dL (8.5-10.1); CREATININE 0.5 mg/dL (0.6-1.0); GFR 152.9; POTASSIUM 3.8 mmol/L (3.5-5.1)
[2019-06-13 23:29] LABS: ALBUMIN 4.2 g/dL (3.4-5.0); ALBUMIN/GLOBULIN RATIO 1.1 (1.0-1.7); TOTAL BILIRUBIN 0.2 mg/dL (0.2-1.0)
--- NOTE | 2019-06-13 23:44 | PHYS DOC ---
Past Medical History Past Medical History: Asthma (KIMBER MOHR APRN) Past Surgical History: No Surgical History Additional Past Surgical Histo: D&C (KIMBER MOHR APRN) Alcohol Use: None Drug Use: None (KIMBER MOHR APRN) Attending Signature I have participated in the care of this patient and I have reviewed and agree with all pertinent clinical information above including history, exam, and recommendations. (LATASHA RODRIGUES MD) Adult General Chief Complaint Chief Complaint: VAGINAL BLEEDING HPI HPI Patient is a 24 year old female who presents with states that when she began urinating she would see red blood when she would wipe and small clots. Patient states it does burn when she urinates. Patient states she has pain in her low mid abdomen. Patient states she is approximately 10 weeks . Patient states that she had an appointment today with her OB doctor but did not go because she was bleeding and she had her children with her. Patient rates her pain a 7 out of 10. (KIMBER MOHR APRN) Review of Systems Review of Systems GI: low mid abdominal pain, denies nausea, vomiting, bloody stools or diarrhea [] : Vaginal bleeding, dysuria or hematuria [] All other systems were reviewed and found to be within normal limits, except as documented in this note. (KIMBER MOHR APRN) Allergies Allergies Allergies Coded Allergies Type Severity Reaction Last Updated Verified No Known Drug Allergies 08/14/17 No (LATASHA RODRIGUES MD) Physical Exam Physical Exam Constitutional: Well developed, well nourished, no acute distress, non-toxic appearance. [] Abdomen: Bowel sounds normal, soft, low mid tenderness, no masses, no pulsatile masses. [] Skin: Warm, dry, no erythema, no rash. [] Back: No tenderness, no CVA tenderness. [] Extremities: No tenderness, no cyanosis, no clubbing, ROM intact, no edema. [] Neurologic: Alert and oriented X 3, normal motor function, normal sensory function, no focal deficits noted. [] Psychologic: Affect normal, judgement normal, mood normal. [] (KIMBER MOHR APRN) Current Patient Data Vital Signs Vital Signs Date Time Temp Pulse Resp B/P (MAP) Pulse Ox O2 Delivery O2 Flow Rate FiO2 06/13/19 22:00 98.2 84 16 114/67 (83) 98 Room Air 98.2 (LATASHA RODRIGUES MD) Lab Values Laboratory Tests Test 06/13/19 22:05 06/13/19 23:05 Urine Collection Type Unknown Urine Color Yellow Urine Clarity Clear Urine pH 6.0 Urine Specific [place] 1.010 Urine Protein Negative mg/dL (NEG-TRACE) Urine Glucose (UA) Negative mg/dL (NEG) Urine Ketones (Stick) Negative mg/dL (NEG) Urine Blood Trace (NEG) Urine Nitrite Negative (NEG) Urine Bilirubin Negative (NEG) Urine Urobilinogen Dipstick 0.2 mg/dL (0.2 mg/dL) Urine Leukocyte Esterase Negative (NEG) Urine RBC Rare /HPF (0-2) Urine WBC 1-4 /HPF (0-4) Urine Squamous Epithelial Cells Mod /LPF Urine Bacteria 0 /HPF (0-FEW) Urine Mucus Slight /LPF White Blood Count 8.7 x10^3/uL (4.0-11.0) Red Blood Count 4.10 x10^6/uL (3.50-5.40) Hemoglobin 13.2 g/dL (12.0-15.5) Hematocrit 38.6 % (36.0-47.0) Mean Corpuscular Volume 94 fL (79-100) Mean Corpuscular Hemoglobin 32 pg (25-35) Mean Corpuscular Hemoglobin Concent 34 g/dL (31-37) Red Cell Distribution Width 13.9 % (11.5-14.5) Platelet Count 307 x10^3/uL (140-400) Neutrophils (%) (Auto) 60 % (31-73) Lymphocytes (%) (Auto) 31 % (24-48) Monocytes (%) (Auto) 7 % (0-9) Eosinophils (%) (Auto) 2 % (0-3) Basophils (%) (Auto) 0 % (0-3) Neutrophils # (Auto) 5.2 x10^3/uL (1.8-7.7) Lymphocytes # (Auto) 2.7 x10^3/uL (1.0-4.8) Monocytes # (Auto) 0.6 x10^3/uL (0.0-1.1) Eosinophils # (Auto) 0.1 x10^3/uL (0.0-0.7) Basophils # (Auto) 0.0 x10^3/uL (0.0-0.2) Maternal Serum HCG Beta Subunit 85521 mIU/mL (0-5) H Sodium Level 138 mmol/L (136-145) Potassium Level 3.8 mmol/L (3.5-5.1) Chloride Level 103 mmol/L (98-107) Carbon Dioxide Level 28 mmol/L (21-32) Anion Gap 7 (6-14) Blood Urea Nitrogen 6 mg/dL (7-20) L Creatinine 0.5 mg/dL (0.6-1.0) L Estimated GFR (Cockcroft-Gault) 152.9 BUN/Creatinine Ratio 12 (6-20) Glucose Level 84 mg/dL (70-99) Calcium Level 9.1 mg/dL (8.5-10.1) Total Bilirubin 0.2 mg/dL (0.2-1.0) Aspartate Amino Transferase (AST) 18 U/L (15-37) Alanine Aminotransferase (ALT) 8 U/L (14-59) L Alkaline Phosphatase 46 U/L (46-116) Total Protein 8.0 g/dL (6.4-8.2) Albumin 4.2 g/dL (3.4-5.0) Albumin/Globulin Ratio 1.1 (1.0-1.7) Laboratory Tests 06/13/19 23:05 Laboratory Tests 06/13/19 23:05 (LATASHA RODRIGUES MD) EKG EKG [] (KIMBER MOHR APRN) Radiology/Procedures Radiology/Procedures [] (KIMBER MOHR APRN) Impressions: [facility] [address] [place] [address] IMAGING REPORT Signed PATIENT: MIA BRAVO MACCOUNT: [id number] : 1995 LOCATION: ER AGE: 24 SEX: F EXAM STATUS: REG ER ORD. PHYSICIAN: KIMBER MOHR APRN REASON: vaginal bleeding PROCEDURE: OB < 14 WKS Obstetric ultrasound less than 14 weeks: Reason for examination: Vaginal bleeding. Transabdominal ultrasound examination of the pelvis was performed. Uterus measures 9.1 x 7.8 x 7.5 cm in greatest dimension. Cervix is normal length at 3.7 cm and is closed. There is a single viable intrauterine gestation present with a normal sac contour. There does appear to be a small subchorionic hemorrhage measuring approximately 1.9 x 0.4 cm x 1.6 in greatest dimensions. Single viable intrauterine gestation is present with cardiac activity seen in the cardiac rate of 175 bpm. Yolk sac is identified. The placenta is not yet present. [place]-rump length is 2.8 cm corresponding to gestational age of 9 weeks 5 days. Estimated date of confinement is 01/11/2020. This corresponds adequately with clinical dates. The ovaries were not identified transabdominally. IMPRESSION: Single viable intrauterine gestation with mean gestational age estimated at 9 weeks 5 days with an estimated date of confinement of 01/11/2020. This corresponds adequately with clinical dates. Small subchorionic hemorrhage present measuring 1.9 x 0.4 x 1.6 cm in size. Electronically signed by: Gisel Rodriguez MD (06/14/2019 12:01 AM) [facility] DICTATED and SIGNED BY: GISEL RODRIGUEZ MD DATE: 06/14/19 0001 (KIMBER MOHR APRN) Course & Med Decision Making Course & Med Decision Making Patient is concerned that she is having a miscarriage. Abdomen is soft and slightly tender to be low mid abdomen. No CVA tenderness. Alert and oriented. Skin pink warm and dry. Afebrile. Vital sign normal limits. Ambulatory with a steady gait. Speaks in full clear sentences. Patient denies nausea, vomiting, diarrhea, headache, dizziness, syncope, visual changes, numbness or tingling, back pain. Urinalysis shows no infection. US shows: Single viable intrauterine gestation with mean gestational age estimated at 9 weeks 5 days with an estimated date of confinement of 01/11/2020. This corresponds adequately with clinical dates. Small subchorionic hemorrhage present measuring 1.9 x 0.4 x 1.6 cm in size. Pelvic Exam: Economic Research Analyst present Abdomen: Nontender External Genitalia: Normal Skin Speculum: Normal vaginal mucosa, Bloody cervical discharge Bimanual: No adnexal masses or tenderness, No CMT (KIMBER MOHR APRN) Dragon Disclaimer Dragon Disclaimer This electronic medical record was generated, in whole or in part, using a voice recognition dictation system. (KIMBER MOHR APRN) Departure Departure Impression: Primary Impression: Subchorionic bleed Disposition: 01 HOME, SELF-CARE Condition: STABLE Referrals: UNKNOWN PCP NAME (PCP) Patient Instructions: Subchorionic Hematoma Additional Instructions: Follow up with OB as soon as possible. Problem Qualifiers Primary Impression: Subchorionic bleed Fetus number: single or unspecified fetus Trimester: first trimester Qualified Codes: O41.8X10 - Other specified disorders of amniotic fluid and membranes, first trimester, not applicable or unspecified; O46.8X1 - Other antepartum hemorrhage, first trimester KIMBER MOHR APRN Jun 13, 2019 23:44 LATASHA RODRIGUES MD Jun 15, 2019 02:36
--- NOTE | 2019-06-14 00:04 | RAD ---
Obstetric ultrasound less than 14 weeks: Reason for examination: Vaginal bleeding. Transabdominal ultrasound examination of the pelvis was performed. Uterus measures 9.1 x 7.8 x 7.5 cm in greatest dimension. Cervix is normal length at 3.7 cm and is closed. There is a single viable intrauterine gestation present with a normal sac contour. There does appear to be a small subchorionic hemorrhage measuring approximately 1.9 x 0.4 cm x 1.6 in greatest dimensions. Single viable intrauterine gestation is present with cardiac activity seen in the cardiac rate of 175 bpm. Yolk sac is identified. The placenta is not yet present. [place]-rump length is 2.8 cm corresponding to gestational age of 9 weeks 5 days. Estimated date of confinement is 01/11/2020. This corresponds adequately with clinical dates. The ovaries were not identified transabdominally. IMPRESSION: Single viable intrauterine gestation with mean gestational age estimated at 9 weeks 5 days with an estimated date of confinement of 01/11/2020. This corresponds adequately with clinical dates. Small subchorionic hemorrhage present measuring 1.9 x 0.4 x 1.6 cm in size. Electronically signed by: Gisel Mahan MD (06/14/2019 12:01 AM) [facility]
== END 2019-06-14 00:27 | disposition home or self-care (01) ==
LOC: ER 21:37
DX: O20.8 Other hemorrhage in early pregnancy (principal); O41.8X10 Other specified disorders of amniotic fluid and membranes, first trimester, not applicable or unspecified; O99.511 Diseases of the respiratory system complicating pregnancy, first trimester; J45.909 Unspecified asthma, uncomplicated; Z3A.09 9 weeks gestation of pregnancy
CPT/HCPCS: 36415; 76801; 80053; 81001; 84702; 85025; 99285-25

== ENCOUNTER 2019-07-14 17:25 | Emergency (ER) | payer SELFPAY ==
[~2019-07-14] VITALS: Ht 162.6 cm; Wt 45.4 kg
[2019-07-14] MEDS ORDERED: IV NORMAL SALINE 1000ML BAG 1,000 ML IV SCH (17:31)
[2019-07-14 17:50] LABS: BILIRUBIN,URINE NEGATIVE (NEG); CLARITY,URINE CLEAR; COLOR,URINE YELLOW; NITRITE,URINE NEGATIVE (NEG); PROTEIN,URINE NEGATIVE (NEG-TRACE); UROBILINOGEN,URINE 0.2 mg/dL (0.2 mg/dL)
[2019-07-14 17:53] LABS: BASO # 0.1 x10^3/uL (0.0-0.2); BASO % 1 % (0-3); EOS # 0.1 x10^3/uL (0.0-0.7); EOS % 1 % (0-3); HEMATOCRIT 34.8 % (36.0-47.0); HEMOGLOBIN 12.2 g/dL (12.0-15.5); LYMPH % 24 % (24-48); MEAN CORPUSCULAR HEMOGLOBIN 33 pg (25-35); MEAN CORPUSCULAR HGB CONC 35 g/dL (31-37); MEAN CORPUSCULAR VOLUME 93 fL (79-100); MONO # 0.6 x10^3/uL (0.0-1.1); MONO % 8 % (0-9); NEUT # 5.3 x10^3/uL (1.8-7.7); NEUT % 66 % (31-73); PLATELET COUNT 342 x10^3/uL (140-400); RED BLOOD COUNT 3.73 x10^6/uL (3.50-5.40)
[2019-07-14 18:05] LABS: BACTERIA,URINE FEW /HPF (0-FEW); RBC,URINE OCC /HPF (0-2); SQUAMOUS EPITHELIAL CELL,UR MOD /LPF
[2019-07-14 18:05] LABS: CALCIUM 8.8 mg/dL (8.5-10.1); CREATININE 0.5 mg/dL (0.6-1.0); GFR 152.9; POTASSIUM 3.7 mmol/L (3.5-5.1)
[2019-07-14 18:11] LABS: ALBUMIN 3.5 g/dL (3.4-5.0); ALBUMIN/GLOBULIN RATIO 0.9 (1.0-1.7); TOTAL BILIRUBIN 0.2 mg/dL (0.2-1.0); TOTAL PROTEIN 7.6 g/dL (6.4-8.2)
[2019-07-14] MEDS ORDERED: ACETAMINOPHEN 500 MG TABLET PO ONE (18:30)
--- NOTE | 2019-07-14 18:34 | PHYS DOC ---
Past Medical History Past Medical History: No Pertinent History Past Surgical History: No Surgical History Additional Past Surgical Histo: D&C Alcohol Use: Rarely Drug Use: None Adult General Chief Complaint Chief Complaint: VAGINAL BLEEDING HPI HPI Patient is a 24 year old female who presents with is 14 weeks has not been to an OB. Patient states she's gone up at the clinic and she has an appointment for August 19. This is her second time being here for vaginal bleeding with small clots. Patient states it is dark red in color. Patient is also having low abdominal cramping off and on. She rate her pain at a 7/10. Review of Systems Review of Systems GI: lower abdominal pain, denies nausea, vomiting, bloody stools or diarrhea [] : Vaginal bleeding. Denies dysuria or hematuria [] All other systems were reviewed and found to be within normal limits, except as documented in this note. Current Medications Current Medications Current Medications Medications (Trade) Dose Ordered Sig/Mey Start Time Stop Time Status Last Admin Dose Admin Acetaminophen (Tylenol) 500 mg 1X ONCE 07/14/19 18:30 07/14/19 18:31 DC 07/14/19 18:30 500 MG Sodium Chloride 1,000 ml @ 1,000 mls/hr Q1H 07/14/19 17:31 07/14/19 18:30 DC 07/14/19 17:53 1,000 MLS/HR Allergies Allergies Allergies Coded Allergies Type Severity Reaction Last Updated Verified No Known Drug Allergies 08/14/17 No Physical Exam Physical Exam Constitutional: Well developed, well nourished, no acute distress, non-toxic appearance. [] HENT: Normocephalic, atraumatic, bilateral external ears normal, oropharynx moist, no oral exudates, nose normal. [] Eyes: PERRLA, EOMI, conjunctiva normal, no discharge. [] Neck: Normal range of motion, no tenderness, supple, no stridor. [] Cardiovascular:Heart rate regular rhythm, no murmur [] Lungs & Thorax: Bilateral breath sounds clear to auscultation [] Abdomen: Bowel sounds normal, soft, no tenderness, no masses, no pulsatile masses. [] Skin: Warm, dry, no erythema, no rash. [] Back: No tenderness, no CVA tenderness. [] Extremities: No tenderness, no cyanosis, no clubbing, ROM intact, no edema. [] Neurologic: Alert and oriented X 3, normal motor function, normal sensory function, no focal deficits noted. [] Psychologic: Affect normal, judgement normal, mood normal. Normal Physical Exam [] Current Patient Data Vital Signs Vital Signs Date Time Temp Pulse Resp B/P (MAP) Pulse Ox O2 Delivery O2 Flow Rate FiO2 07/14/19 17:45 97.8 86 17 115/70 (85) 99 Room Air 97.8 Lab Values Laboratory Tests Test 07/14/19 17:35 07/14/19 17:42 07/14/19 17:45 Urine Collection Type Unknown Urine Color Yellow Urine Clarity Clear Urine pH 8.0 Urine Specific [place] 1.010 Urine Protein Negative mg/dL (NEG-TRACE) Urine Glucose (UA) Negative mg/dL (NEG) Urine Ketones (Stick) Negative mg/dL (NEG) Urine Blood Negative (NEG) Urine Nitrite Negative (NEG) Urine Bilirubin Negative (NEG) Urine Urobilinogen Dipstick 0.2 mg/dL (0.2 mg/dL) Urine Leukocyte Esterase Negative (NEG) Urine RBC Occ /HPF (0-2) Urine WBC 1-4 /HPF (0-4) Urine Squamous Epithelial Cells Mod /LPF Urine Bacteria Few /HPF (0-FEW) Urine Mucus Slight /LPF POC Urine HCG, Qualitative Hcg positive (Negative) White Blood Count 8.0 x10^3/uL (4.0-11.0) Red Blood Count 3.73 x10^6/uL (3.50-5.40) Hemoglobin 12.2 g/dL (12.0-15.5) Hematocrit 34.8 % (36.0-47.0) L Mean Corpuscular Volume 93 fL (79-100) Mean Corpuscular Hemoglobin 33 pg (25-35) Mean Corpuscular Hemoglobin Concent 35 g/dL (31-37) Red Cell Distribution Width 13.0 % (11.5-14.5) Platelet Count 342 x10^3/uL (140-400) Neutrophils (%) (Auto) 66 % (31-73) Lymphocytes (%) (Auto) 24 % (24-48) Monocytes (%) (Auto) 8 % (0-9) Eosinophils (%) (Auto) 1 % (0-3) Basophils (%) (Auto) 1 % (0-3) Neutrophils # (Auto) 5.3 x10^3/uL (1.8-7.7) Lymphocytes # (Auto) 2.0 x10^3/uL (1.0-4.8) Monocytes # (Auto) 0.6 x10^3/uL (0.0-1.1) Eosinophils # (Auto) 0.1 x10^3/uL (0.0-0.7) Basophils # (Auto) 0.1 x10^3/uL (0.0-0.2) Maternal Serum HCG Beta Subunit 35407 mIU/mL (0-5) H Sodium Level 137 mmol/L (136-145) Potassium Level 3.7 mmol/L (3.5-5.1) Chloride Level 104 mmol/L (98-107) Carbon Dioxide Level 25 mmol/L (21-32) Anion Gap 8 (6-14) Blood Urea Nitrogen 7 mg/dL (7-20) Creatinine 0.5 mg/dL (0.6-1.0) L Estimated GFR (Cockcroft-Gault) 152.9 BUN/Creatinine Ratio 14 (6-20) Glucose Level 85 mg/dL (70-99) Calcium Level 8.8 mg/dL (8.5-10.1) Total Bilirubin 0.2 mg/dL (0.2-1.0) Aspartate Amino Transferase (AST) 22 U/L (15-37) Alanine Aminotransferase (ALT) 15 U/L (14-59) Alkaline Phosphatase 40 U/L (46-116) L Total Protein 7.6 g/dL (6.4-8.2) Albumin 3.5 g/dL (3.4-5.0) Albumin/Globulin Ratio 0.9 (1.0-1.7) L Laboratory Tests 07/14/19 17:45 Laboratory Tests 07/14/19 17:45 EKG EKG [] Radiology/Procedures Radiology/Procedures [] Impressions: [facility] [address] [place] [address] IMAGING REPORT Signed PATIENT: MIA BRAVO MACCOUNT: [id number] : 1995 LOCATION: ER AGE: 24 SEX: F EXAM STATUS: REG ER ORD. PHYSICIAN: KIMBER MOHR APRN REASON: vaginal bleeding PROCEDURE: OB < 14 WKS Exam: Ultrasound OB less than 14 weeks Indication: Vaginal bleeding Technique: Real-time grayscale and color Doppler images of the pelvis were obtained by the department communication equipment repairer. Comparisons: 06/13/2019 FINDINGS: There is a single live intrauterine with heart rate measured at 147 bpm. measurements as follows: BPD: 2.8 cm corresponding to 15 weeks 0 days Head circumference: 10.2 cm corresponding to 14 weeks 4 days Abdominal circumference: 8.2 cm corresponding to 14 weeks 4 days Femur length: 1.4 cm corresponding to 14 weeks 0 days The placenta is posterior. Interposed between the inferior margin of the placenta to cervix there is a complex area measuring approximately 4.5 cm favored represent hemorrhagic products. IMPRESSION: 1. Interposed between the inferior margin of the placenta cervix there is a complex hypoechoic area measuring proximally 4.5 cm favored represent hemorrhagic products. Portions of this may be retroplacental and Given positioning differential considerations include placental abruption. 2. There is a single intrauterine gestation with heart rate measured at 147 bpm. There has been appropriate growth since the prior ultrasound. Electronically signed by: Stephanie Valdivia MD (07/14/2019 7:18 PM) [facility] DICTATED and SIGNED BY: STEPHANIE VALDIVIA MD DATE: 07/14/19 191 Course & Med Decision Making Course & Med Decision Making No abdominal tenderness with palpation. Vital sign wnl. Alert and oriented. Patient states the bleeding comes an goes. Patient states she has started a new job at [employer]. 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 Skin pink warm and dry. Denies dysuria, soa, chest pain, headache, fever, no extremity edema, diarrhea, vomiting. She is given Tylenol and fluid in the emergency room. Patient is O+. US shows IMPRESSION: 1. Interposed between the inferior margin of the placenta cervix there is a complex hypoechoic area measuring proximally 4.5 cm favored represent hemorrhagic products. Portions of this may be retroplacental and Given positioning differential considerations include placental abruption. 2. There is a single intrauterine gestation with heart rate measured at 147 bpm. There has been appropriate growth since the prior ultrasound. I have gone over findings with Dr Cole. Patient needs to rest and be off of her feet as much as possible. Also pelvic rest. I have referred patient to [facility] as she might be able to get in quicker than [facility]. Pelvic Exam: Car Dryer present Abdomen: Nontender External Genitalia: Normal Skin Speculum: Normal vaginal mucosa, Brown cervical discharge, Cervix closed Bimanual: No adnexal masses or tenderness, No CMT [] Dragon Disclaimer Dragon Disclaimer This electronic medical record was generated, in whole or in part, using a voice recognition dictation system. Departure Departure Impression: Primary Impression: Abdominal pain affecting Additional Impression: Vaginal bleeding affecting early Disposition: 01 HOME, SELF-CARE Condition: STABLE Referrals: NO PCP (PCP) YAN MUNOZ Jr, MD Patient Instructions: Threatened Miscarriage, Vaginal Bleeding During , First Trimester Additional Instructions: Do not have sexual intercourse until you have been cleared by a doctor. I would not work and rest as much as possible. I have referred you to our OB doctors as you might get in faster. Call them as soon as possible. Problem Qualifiers KIMBER MOHR RUBBER ATTACHER Jul 14, 2019 18:34
--- NOTE | 2019-07-14 19:21 | RAD ---
Exam: Ultrasound OB less than 14 weeks Indication: Vaginal bleeding Technique: Real-time grayscale and color Doppler images of the pelvis were obtained by the department treasury management sales consultant. Comparisons: 06/13/2019 FINDINGS: There is a single live intrauterine with heart rate measured at 147 bpm. measurements as follows: BPD: 2.8 cm corresponding to 15 weeks 0 days Head circumference: 10.2 cm corresponding to 14 weeks 4 days Abdominal circumference: 8.2 cm corresponding to 14 weeks 4 days Femur length: 1.4 cm corresponding to 14 weeks 0 days The placenta is posterior. Interposed between the inferior margin of the placenta to cervix there is a complex area measuring approximately 4.5 cm favored represent hemorrhagic products. IMPRESSION: 1. Interposed between the inferior margin of the placenta cervix there is a complex hypoechoic area measuring proximally 4.5 cm favored represent hemorrhagic products. Portions of this may be retroplacental and Given positioning differential considerations include placental abruption. 2. There is a single intrauterine gestation with heart rate measured at 147 bpm. There has been appropriate growth since the prior ultrasound. Electronically signed by: Stephanie Fletcher MD (07/14/2019 7:18 PM) [facility]
[2019-07-14 19:40] VITALS: BP 99/55
== END 2019-07-14 19:50 | disposition home or self-care (01) ==
LOC: ER 17:25
DX: O46.92 Antepartum hemorrhage, unspecified, second trimester (principal); R10.30 Lower abdominal pain, unspecified; Z3A.14 14 weeks gestation of pregnancy
CPT/HCPCS: 36415; 76801; 80053; 81001; 81025; 84702; 85025; 99285; J7030

== ENCOUNTER 2019-08-16 20:55 | Emergency (ER) | payer SELFPAY ==
[~2019-08-16] VITALS: Ht 154.9 cm; Wt 47.6 kg
[2019-08-16 21:34] LABS: BILIRUBIN,URINE NEGATIVE (NEG); CLARITY,URINE CLEAR; COLOR,URINE YELLOW; NITRITE,URINE NEGATIVE (NEG); PROTEIN,URINE NEGATIVE (NEG-TRACE); UROBILINOGEN,URINE 0.2 mg/dL (0.2 mg/dL)
[2019-08-16 21:48] LABS: BACTERIA,URINE FEW /HPF (0-FEW); RBC,URINE OCC /HPF (0-2); SQUAMOUS EPITHELIAL CELL,UR FEW /LPF
[2019-08-16 21:54] LABS: BASO # 0.1 x10^3/uL (0.0-0.2); BASO % 1 % (0-3); EOS # 0.1 x10^3/uL (0.0-0.7); EOS % 1 % (0-3); HEMATOCRIT 32.7 % (36.0-47.0); HEMOGLOBIN 11.4 g/dL (12.0-15.5); LYMPH # 2.7 x10^3/uL (1.0-4.8); LYMPH % 31 % (24-48); MEAN CORPUSCULAR HEMOGLOBIN 32 pg (25-35); MEAN CORPUSCULAR HGB CONC 35 g/dL (31-37); MEAN CORPUSCULAR VOLUME 92 fL (79-100); MONO # 0.6 x10^3/uL (0.0-1.1); MONO % 7 % (0-9); NEUT # 5.3 x10^3/uL (1.8-7.7); NEUT % 61 % (31-73); PLATELET COUNT 295 x10^3/uL (140-400); RED BLOOD COUNT 3.56 x10^6/uL (3.50-5.40); RED CELL DISTRIBUTION WIDTH 12.9 % (11.5-14.5); WHITE BLOOD COUNT 8.7 x10^3/uL (4.0-11.0)
[2019-08-16] MEDS ORDERED: IV NORMAL SALINE 1000ML BAG 1,000 ML IV ONE (22:00)
--- NOTE | 2019-08-16 22:17 | PHYS DOC ---
Past Medical History Past Medical History: No Pertinent History Past Surgical History: No Surgical History Additional Past Surgical Histo: D&C Alcohol Use: Rarely Drug Use: None Adult General Chief Complaint Chief Complaint: ABDOMINAL PAIN IN HPI HPI Patient is a 24-year-old female with a past obstetrical history of 2 live births and one spontaneous and is presenting to the emergency department 19 weeks estimated gestational age and abdominal pain. Patient states that she has had a week of bleeding vaginally with at largest softball size clots that stopped yesterday. During this entire episode of bleeding she has had abdominal pain that has continued to the present. She states that this pain is sharp localized to the lower abdomen and feels similar to her first . She denies any fevers, nausea, vomiting, shortness of breath, chest pain, vaginal discharge, and trauma to the abdomen. Review of Systems Review of Systems Constitutional: Denies fever or chills Eyes: Denies redness or eye pain HENT: Denies nasal congestion or sore throat Respiratory: Denies cough or shortness of breath Cardiovascular: Denies chest pain or palpitations GI: Denies nausea, or vomiting, reports abdominal pain : Denies dysuria or hematuria, reports vaginal bleeding Musculoskeletal: Denies back pain or joint pain Integument: Denies rash or skin lesions Neurologic: Denies headache, focal weakness or sensory changes Complete systems were reviewed and found to be within normal limits, except as documented in this note. Current Medications Current Medications Current Medications Medications (Trade) Dose Ordered Sig/Mey Start Time Stop Time Status Last Admin Dose Admin Metronidazole (Flagyl) 500 mg 1X ONCE 08/16/19 23:45 08/16/19 23:46 UNV Sodium Chloride 1,000 ml @ 1,000 mls/hr 1X ONCE 08/16/19 22:00 08/16/19 22:59 DC 08/16/19 22:01 1,000 MLS/HR Allergies Allergies Allergies Coded Allergies Type Severity Reaction Last Updated Verified No Known Drug Allergies 08/14/17 No Physical Exam Physical Exam Constitutional: Well developed, well nourished, no acute distress, non-toxic appearance HENT: Normocephalic, atraumatic, oropharynx moist Eyes: PERRL, EOMI, conjunctiva normal, no discharge Neck: Normal range of motion, no tenderness, supple Cardiovascular: Heart rate normal, regular rhythm Lungs & Thorax: Bilateral breath sounds clear to auscultation, no wheezing Abdomen: Soft, tenderness to palpation of the lower abdomen, uterus palpated at the umbilicus Skin: Warm, dry, no erythema, no rash Back: No tenderness, no CVA tenderness Extremities: No tenderness, ROM intact, no edema Neurologic: Alert and oriented X 3, normal motor function, normal sensory function, no focal deficits noted Psychologic: Affect normal, judgement normal, mood normal Current Patient Data Vital Signs Vital Signs Date Time Temp Pulse Resp B/P (MAP) Pulse Ox O2 Delivery O2 Flow Rate FiO2 08/16/19 21:08 97.6 85 16 114/73 (87) 98 Room Air 97.6 Lab Values Laboratory Tests Test 08/16/19 21:05 08/16/19 21:15 08/16/19 22:00 Urine Color Yellow Urine Clarity Clear Urine pH 7.0 Urine Specific [place] 1.015 Urine Protein Negative mg/dL (NEG-TRACE) Urine Glucose (UA) Negative mg/dL (NEG) Urine Ketones (Stick) Negative mg/dL (NEG) Urine Blood Trace (NEG) Urine Nitrite Negative (NEG) Urine Bilirubin Negative (NEG) Urine Urobilinogen Dipstick 0.2 mg/dL (0.2 mg/dL) Urine Leukocyte Esterase Small (NEG) Urine RBC Occ /HPF (0-2) Urine WBC 5-10 /HPF (0-4) Urine Squamous Epithelial Cells Few /LPF Urine Bacteria Few /HPF (0-FEW) White Blood Count 8.7 x10^3/uL (4.0-11.0) Red Blood Count 3.56 x10^6/uL (3.50-5.40) Hemoglobin 11.4 g/dL (12.0-15.5) L Hematocrit 32.7 % (36.0-47.0) L Mean Corpuscular Volume 92 fL (79-100) Mean Corpuscular Hemoglobin 32 pg (25-35) Mean Corpuscular Hemoglobin Concent 35 g/dL (31-37) Red Cell Distribution Width 12.9 % (11.5-14.5) Platelet Count 295 x10^3/uL (140-400) Neutrophils (%) (Auto) 61 % (31-73) Lymphocytes (%) (Auto) 31 % (24-48) Monocytes (%) (Auto) 7 % (0-9) Eosinophils (%) (Auto) 1 % (0-3) Basophils (%) (Auto) 1 % (0-3) Neutrophils # (Auto) 5.3 x10^3/uL (1.8-7.7) Lymphocytes # (Auto) 2.7 x10^3/uL (1.0-4.8) Monocytes # (Auto) 0.6 x10^3/uL (0.0-1.1) Eosinophils # (Auto) 0.1 x10^3/uL (0.0-0.7) Basophils # (Auto) 0.1 x10^3/uL (0.0-0.2) Maternal Serum HCG Beta Subunit 7354 mIU/mL (0-5) H Sodium Level 140 mmol/L (136-145) Potassium Level 3.1 mmol/L (3.5-5.1) L Chloride Level 104 mmol/L (98-107) Carbon Dioxide Level 25 mmol/L (21-32) Anion Gap 11 (6-14) Blood Urea Nitrogen 8 mg/dL (7-20) Creatinine 0.5 mg/dL (0.6-1.0) L Estimated GFR (Cockcroft-Gault) 152.9 BUN/Creatinine Ratio 16 (6-20) Glucose Level 76 mg/dL (70-99) Calcium Level 8.6 mg/dL (8.5-10.1) Magnesium Level 1.8 mg/dL (1.8-2.4) Total Bilirubin 0.2 mg/dL (0.2-1.0) Aspartate Amino Transferase (AST) 14 U/L (15-37) L Alanine Aminotransferase (ALT) 12 U/L (14-59) L Alkaline Phosphatase 43 U/L (46-116) L Total Protein 6.7 g/dL (6.4-8.2) Albumin 2.8 g/dL (3.4-5.0) L Albumin/Globulin Ratio 0.7 (1.0-1.7) L Lipase 134 U/L (73-393) Laboratory Tests 08/16/19 21:15 Laboratory Tests 08/16/19 22:00 Microbiology 08/16/19 Wet Prep - Final, Complete EKG EKG [] Radiology/Procedures Radiology/Procedures PROCEDURE: OB LIMITED OB ULTRASOUND, > 14 WEEKS Clinical Indication: Abdominal pain. Comparison: Obstetric ultrasound July 14, 2019. Technique: Multiple grayscale images, color Doppler, and M-mode images of the uterus are obtained. Findings: There is a single intrauterine gestation in cephalic presentation. The placenta is posterior in location without evidence of placenta previa. Complex hypoechoic area within the placenta in the cervix is no longer identified. The amount of amniotic fluid appears appropriate. Cervical length is 4.4 cm. Biometrical data: BPD = 4.5 cm for 19 weeks 5 days. HC = 16.3 cm for 19 weeks 0 days. AC = 13.5 cm for 18 weeks 6 days. FL = 2.8 cm for 18 weeks 4 days. HC/AC ratio = 1.21. Overall, the estimated sonographic gestational age is 19 weeks and 0 days for an estimated date of delivery of January 10, 2020. The estimated date of delivery provided by the last menstrual period is January 12, 2020. Estimated weight is 258 +/- 38 grams. A complete anatomic survey is not performed due to early gestational age. The estimated heart rate is 163 beats per minute. Impression: 1. Single live intrauterine gestation with estimated sonographic gestational age of 19 weeks and 0 days. 2. The hypoechoic area noted on the prior study in between the placenta and the cervix is no longer seen. Electronically signed by: Mann Carlson MD (08/16/2019 11:07 PM) [facility] Course & Med Decision Making Course & Med Decision Making Pertinent Labs and Imaging studies reviewed. (See chart for details) Patient is a 24-year-old female with an obstetrical history of 2 live births and one spontaneous that is presenting to the emergency department at an estimated gestational age of 19 weeks with abdominal pain. Patient was seen and examined the bedside. Labs and ultrasound ordered. Pelvic exam demonstrates a closed cervix with brown discharge, mild tenderness to digital exam. Ultrasound demonstrates a live intrauterine gestation at 19 weeks with an estimated heart rate of 163, resolution of hypoechoic area between cervix and placenta. Clue cells present on wet mount. Blood type O positive. Patient stable for discharge with outpatient follow-up with PCP. Discussed findings and plan with patient and family, who acknowledge understanding and agreement. Dragon Disclaimer Dragon Disclaimer This electronic medical record was generated, in whole or in part, using a voice recognition dictation system. Departure Departure Impression: Primary Impression: Abdominal pain during in second trimester Additional Impression: Bacterial vaginosis Disposition: 01 HOME, SELF-CARE Condition: STABLE Referrals: NO PCP (PCP) Patient Instructions: Abdominal Pain During , [id number], Bacterial Vaginosis, [id number] Scripts Metronidazole (FLAGYL) 500 Mg Tablet 500 MG PO BID for Vaginosis for 7 Days, #14 TAB Prov: GEOVANNA SINHA DO 08/16/19 Problem Qualifiers GEOVANNA SINHA DO Aug 16, 2019 22:17
[2019-08-16 22:33] LABS: CALCIUM 8.6 mg/dL (8.5-10.1); CREATININE 0.5 mg/dL (0.6-1.0); GFR 152.9; POTASSIUM 3.1 mmol/L (3.5-5.1)
[2019-08-16 22:40] LABS: ALBUMIN 2.8 g/dL (3.4-5.0); ALBUMIN/GLOBULIN RATIO 0.7 (1.0-1.7); MAGNESIUM 1.8 mg/dL (1.8-2.4); TOTAL BILIRUBIN 0.2 mg/dL (0.2-1.0); TOTAL PROTEIN 6.7 g/dL (6.4-8.2)
--- NOTE | 2019-08-16 23:10 | RAD ---
OB ULTRASOUND, > 14 WEEKS Clinical Indication: Abdominal pain. Comparison: Obstetric ultrasound July 14, 2019. Technique: Multiple grayscale images, color Doppler, and M-mode images of the uterus are obtained. Findings: There is a single intrauterine gestation in cephalic presentation. The placenta is posterior in location without evidence of placenta previa. Complex hypoechoic area within the placenta in the cervix is no longer identified. The amount of amniotic fluid appears appropriate. Cervical length is 4.4 cm. Biometrical data: BPD = 4.5 cm for 19 weeks 5 days. HC = 16.3 cm for 19 weeks 0 days. AC = 13.5 cm for 18 weeks 6 days. FL = 2.8 cm for 18 weeks 4 days. HC/AC ratio = 1.21. Overall, the estimated sonographic gestational age is 19 weeks and 0 days for an estimated date of delivery of January 10, 2020. The estimated date of delivery provided by the last menstrual period is January 12, 2020. Estimated weight is 258 +/- 38 grams. A complete anatomic survey is not performed due to early gestational age. The estimated heart rate is 163 beats per minute. Impression: 1. Single live intrauterine gestation with estimated sonographic gestational age of 19 weeks and 0 days. 2. The hypoechoic area noted on the prior study in between the placenta and the cervix is no longer seen. Electronically signed by: Mann Carlson MD (08/16/2019 11:07 PM) [facility]
[2019-08-16] MEDS ORDERED: METR500T PO (23:39)
[2019-08-16 23:41] VITALS: BP 99/62
[2019-08-16] MEDS ORDERED: metroNIDAZOLE 500 MG TABLET PO ONE (23:45)
[2019-08-20 04:08] LABS: GC PROBE Negative (Negative)
== END 2019-08-16 23:50 | disposition home or self-care (01) ==
LOC: ER 20:55
DX: O23.592 Infection of other part of genital tract in pregnancy, second trimester (principal); O26.892 Other specified pregnancy related conditions, second trimester; B96.89 Other specified bacterial agents as the cause of diseases classified elsewhere; R10.30 Lower abdominal pain, unspecified; Z3A.19 19 weeks gestation of pregnancy; Z98.890 Other specified postprocedural states
CPT/HCPCS: 36415; 76815; 80053; 81001; 83690; 83735; 84702; 85025; 87086; 87491; 87591; 99285; J7030; Q0111

== ENCOUNTER 2019-08-25 00:16 | Emergency (ER) | payer SELFPAY ==
[~2019-08-25] VITALS: Ht 154.9 cm; Wt 47.6 kg
[~2019-08-25 00:16] MED LIST changes: +METR500T PO
[2019-08-25 00:20] VITALS: BP 115/66
[2019-08-25 00:51] LABS: INFLUENZA A PATIENT NEGATIVE (NEGATIVE); INFLUENZA B PATIENT NEGATIVE (NEGATIVE)
--- NOTE | 2019-08-25 00:55 | PHYS DOC ---
Past Medical History Past Medical History: No Pertinent History (AYAAN ZUÑIGA) Past Surgical History: No Surgical History Additional Past Surgical Histo: D&C (AYAAN ZUÑIGA) Alcohol Use: Rarely Drug Use: None (AYAAN ZUÑIGA) Attending Signature I have participated in the care of this patient and I have reviewed and agree with all pertinent clinical information above including history, exam, and recommendations. (LATASHA RODRIGUES MD) Adult General Chief Complaint Chief Complaint: FLU SYMPTOM HPI HPI Patient is a 24 year old F with cough, congestion, fever and body aches for the last week. Pt is 20 weeks and reports she has been seen several times during her for complications including some bleeding. She denies any vaginal bleeding or discharge today. She does have some R lower abd pain when she coughs. . (AYAAN ZUÑIGA) Review of Systems Review of Systems Constitutional: Reports fever HENT: Reports nasal congestion and sore throat Respiratory: Reports cough Cardiovascular: Denies chest pain GI: R lower abdominal pain with cough : Denies vaginal bleeding or discharge. Musculoskeletal: Denies back pain or joint pain [] Integument: Denies rash or skin lesions [] Neurologic: Denies headache, focal weakness or sensory changes [] All other systems were reviewed and found to be within normal limits, except as documented in this note. (AYAAN ZUÑIGA) Current Medications Current Medications Current Medications Medications (Trade) Dose Ordered Sig/Mey Start Time Stop Time Status Last Admin Dose Admin Acetaminophen (Tylenol) 650 mg 1X ONCE 08/25/19 01:00 08/25/19 01:01 DC 08/25/19 01:00 650 MG Guaifenesin (Robitussin) 200 mg PRN Q4HRS PRN 08/25/19 01:30 08/25/19 01:42 DC 08/25/19 01:36 200 MG (LATASHA RODRIGUES MD) Allergies Allergies Allergies Coded Allergies Type Severity Reaction Last Updated Verified No Known Drug Allergies 08/14/17 No (LATASHA RODRIGUES MD) Physical Exam Physical Exam Constitutional: Well developed, well nourished, no acute distress, non-toxic appearance. Appears ill and hard cough noted HENT: Normocephalic, atraumatic, bilateral external ears inflamed, pharyngeal erythema (mild). Neck: Normal range of motion, no tenderness, supple, no stridor. [] Cardiovascular:Heart rate regular rhythm, no murmur [] Lungs & Thorax: Coarse breath sounds B, hard cough Abdomen: Bowel sounds normal, soft, no tenderness, no masses, no pulsatile masses. Gravid uterus, no pain on palpation Skin: Warm, dry, no erythema, no rash. [] Back: No tenderness, no CVA tenderness. [] Extremities: No tenderness, no cyanosis, no clubbing, ROM intact, no edema. [] Neurologic: Alert and oriented X 3, normal motor function, normal sensory func tion, no focal deficits noted. [] Psychologic: Affect normal, judgement normal, mood normal. [] (AYAAN ZUÑIGA) Current Patient Data Vital Signs Vital Signs Date Time Temp Pulse Resp B/P (MAP) Pulse Ox O2 Delivery O2 Flow Rate FiO2 08/25/19 00:20 98.1 106 14 115/66 (82) 99 Room Air 98.1 (LATASHA RODRIGUES MD) Lab Values Laboratory Tests Test 08/25/19 00:19 08/25/19 01:10 Influenza Type A Antigen Negative (NEGATIVE) Influenza Type B Antigen Negative (NEGATIVE) Urine Collection Type Unknown Urine Color Yellow Urine Clarity Clear Urine pH 6.0 Urine Specific [place] 1.010 Urine Protein Negative mg/dL (NEG-TRACE) Urine Glucose (UA) Negative mg/dL (NEG) Urine Ketones (Stick) Negative mg/dL (NEG) Urine Blood Negative (NEG) Urine Nitrite Negative (NEG) Urine Bilirubin Negative (NEG) Urine Urobilinogen Dipstick 0.2 mg/dL (0.2 mg/dL) Urine Leukocyte Esterase Negative (NEG) Urine RBC Occ /HPF (0-2) Urine WBC 1-4 /HPF (0-4) Urine Squamous Epithelial Cells Mod /LPF Urine Bacteria Few /HPF (0-FEW) Urine Mucus Slight /LPF (LATASHA RODRIGUES MD) EKG EKG [] (AYAAN ZUÑIGA) Radiology/Procedures Radiology/Procedures [] (AYAAN ZUÑIGA) Course & Med Decision Making Course & Med Decision Making Pertinent Labs and Imaging studies reviewed. (See chart for details) Pt's heart tones are 140's and strong. Pt denies vaginal bleeding or discharge. Her pain is on the lower R side and felt when she coughs. Pt is feeling active movement throughout the day and while in ER. Influenza swabs negative. Suspect bronchitis, upper respiratory illness. While most likely viral, with her being and worsening over the week, will cover with Azithromycin. Pt was discharged from ER and discussed going up to L&D for monitoring with her abd discomfort, however she declines this at this time. She feels the pain is related to her cough and wants to go home. Discussed rest, pushing fluids and close f/u with OB on Monday. Pt asked to return with any worsening symptoms. (AYAAN ZUÑIGA) Dragon Disclaimer Dragon Disclaimer This electronic medical record was generated, in whole or in part, using a voice recognition dictation system. (AYAAN ZUÑIGA) Departure Departure Impression: Primary Impression: Bronchitis Additional Impression: Abdominal pain in Disposition: HOME, SELF-CARE Condition: STABLE Referrals: NO PCP (PCP) Patient Instructions: Abdominal Pain During , [id number], Acute Bronchitis, [id number] Additional Instructions: Push fluids and rest. Contact your programming internship on Monday to discuss your ER visit. Return if symptoms worsen at anytime. Scripts Dextromethorphan Polistirex (Robitussin ER) 30 Mg/5 Ml Leana.er.12h 30 MG PO Q8HRS for 7 Days, #100 MISC Prov: AYAAN ZUÑIGA 08/25/19 Albuterol Sulfate (Proair Hfa) 8.5 Gm Hfa.aer.ad 1 PUFF INH PRN Q6HRS PRN for SHORTNESS OF BREATH for 7 Days, #1 INHALER Prov: AYAAN ZUÑIGA 08/25/19 Azithromycin (AZITHROMYCIN TABLET) 250 Mg Tablet 1 PKG PO UD for 5 Days, #6 TAB 0 Refills 2 the first day followed by 1 for days 2-5 Prov: AYAAN ZUÑIGA 08/25/19 Problem Qualifiers AYAAN ZUÑIGA Aug 25, 2019 00:55 LATASHA RODRIGUES MD Aug 27, 2019 18:11
[2019-08-25] MEDS ORDERED: ACETAMINOPHEN 325 MG TABLET. PO ONE (01:00)
[2019-08-25] MEDS ORDERED: ALBU2.5V8 INH (01:16)
[2019-08-25] MEDS ORDERED: AZIT250T6 PO (01:16)
[2019-08-25] MEDS ORDERED: DEXT30SU PO (01:16)
[2019-08-25 01:18] LABS: BILIRUBIN,URINE NEGATIVE (NEG); CLARITY,URINE CLEAR; COLOR,URINE YELLOW; NITRITE,URINE NEGATIVE (NEG); PROTEIN,URINE NEGATIVE (NEG-TRACE); UROBILINOGEN,URINE 0.2 mg/dL (0.2 mg/dL)
[2019-08-25 01:22] LABS: BACTERIA,URINE FEW /HPF (0-FEW); RBC,URINE OCC /HPF (0-2); SQUAMOUS EPITHELIAL CELL,UR MOD /LPF
[2019-08-25] MEDS ORDERED: guaiFENesin ORAL 200 MG/10 ML LIQUID. PO PRN (01:30)
== END 2019-08-25 01:40 | disposition home or self-care (01) ==
LOC: ER 00:16
DX: O26.892 Other specified pregnancy related conditions, second trimester (principal); J40 Bronchitis, not specified as acute or chronic; R10.31 Right lower quadrant pain; R05 Cough; R50.9 Fever, unspecified
CPT/HCPCS: 81001; 87804; 99284

== ENCOUNTER 2020-09-18 15:58 | Observation (INO) | payer SELFPAY ==
[~2020-09-18] VITALS: Ht 154.9 cm; Wt 46.3 kg
[~2020-09-18 15:58] MED LIST changes: +ALBU2.5V8 INH; +AZIT250T6 PO; +DEXT30SU PO
[2020-09-18] MEDS ORDERED: fentaNYL PF VIAL 100 MCG/2 ML VIAL IV ONE ×3 (16:30→18:30)
[2020-09-18] MEDS ORDERED: ONDANSETRON PF 4 MG/2 ML VIAL. IV ONE (16:30)
[2020-09-18] MEDS ORDERED: IV NORMAL SALINE 1000ML BAG 1,000 ML IV ONE (16:30)
[2020-09-18 16:39] LABS: BASO % 0 % (0-3); EOS # 0.1 x10^3/uL (0.0-0.7); EOS % 1 % (0-3); HEMATOCRIT 34.6 % (36.0-47.0); HEMOGLOBIN 12.2 g/dL (12.0-15.5); LYMPH # 1.9 x10^3/uL (1.0-4.8); LYMPH % 13 % (24-48); MEAN CORPUSCULAR HEMOGLOBIN 33 pg (25-35); MEAN CORPUSCULAR HGB CONC 35 g/dL (31-37); MEAN CORPUSCULAR VOLUME 94 fL (79-100); MONO # 0.6 x10^3/uL (0.0-1.1); MONO % 4 % (0-9); NEUT % 82 % (31-73); PLATELET COUNT 298 x10^3/uL (140-400); RED BLOOD COUNT 3.67 x10^6/uL (3.50-5.40); RED CELL DISTRIBUTION WIDTH 13.3 % (11.5-14.5); WHITE BLOOD COUNT 14.6 x10^3/uL (4.0-11.0)
--- NOTE | 2020-09-18 17:32 | RAD ---
INDICATION: Reason: vag bleed / Spl. Instructions: / History: COMPARISON: None. TECHNIQUE: Grayscale and color ultrasound images uterus and adnexa. FINDINGS: Uterus: 139 x 80 x 80 mm. Intrauterine is identified with a pole with crown-rump length of 56 mm and heart beat of 168. 80 x 89 mm masslike structure inferior to the uterus Left ovary is 27 x 27 x 27 mm. 18 mm dominant follicle or small cyst. The right ovary is not seen. IMPRESSION: * Intrauterine is identified with estimated gestational age of 12 weeks and 1 day with po sitive heartbeat. * Masslike structure is seen inferior to the uterus. This could be secondary to either a mass in the area or hematoma. This is located near the cervical region and upper vaginal region extending to low er uterine segment. Electronically signed by: Moises Dietz MD (09/18/2020 5:29 PM) [id number]
--- NOTE | 2020-09-18 17:35 | ED.ADGEN ---
Past Medical History Past Medical History: No Pertinent History Past Surgical History: No Surgical History Additional Past Surgical Histo: D&C Smoking Status: Never Smoker Alcohol Use: Rarely Drug Use: None General Adult EDM: Chief Complaint: VAGINAL BLEEDING HPI: HPI: Patient is a 25 year old female who presents to the emergency department with complaints of heavy vaginal bleeding since approximately 1400 this afternoon. Patient states she is currently , her last menstrual cycle was on June 16, 2020. She is 5, para 3, with 1 previous spontaneous at approximately 16 weeks gestation. Patient reports she was in the shower when she noticed that she began bleeding. She states that she has saturated approximately 2 or 3 pads before arriving to the emergency room. She denies any fever, cough, diarrhea, dysuria, hematuria, or increased urinary frequency. She states she has been having lots of nausea and vomiting for the last 2 days and has not been able to keep any food down since yesterday. Patient reports she has vomited at least 6 times today, she denies any blood in her vomit. She denies any abnormal vaginal discharge or vaginal odor prior to the onset of the bleeding this afternoon. Patient states that last night she noticed that there were some small blood clots when she urinated but denied any concerns of vaginal bleeding at that time. She currently rates her pain 8-9 out of 10 on the pain scale and describes it as a cramping sensation in her pelvis region. The patient does not have an INDUSTRIAL PSYCHOLOGY PROFESSOR established for this . Review of Systems: Review of Systems: Complete ROS is negative unless otherwise noted in HPI. Current Medications: Current Medications Medications (Trade) Dose Ordered Sig/[facility] Start Time Stop Time Status Last Admin Dose Admin Fentanyl Citrate (Fentanyl 2ml Vial) 50 mcg 1X ONCE 09/18/20 17:30 09/18/20 17:31 DC 09/18/20 17:22 50 MCG Ondansetron HCl (Zofran) 4 mg 1X ONCE 09/18/20 16:30 09/18/20 16:31 DC 09/18/20 16:45 4 MG Sodium Chloride 1,000 ml @ 1,000 mls/hr 1X ONCE 09/18/20 16:30 09/18/20 17:29 DC 09/18/20 16:45 1,000 MLS/HR Allergies: Allergies: Allergies Coded Allergies Type Severity Reaction Last Updated Verified No Known Drug Allergies 08/14/17 No Physical Exam: PE: See Above Constitutional: Well developed, well nourished, no acute distress, appears anxious HENT: Normocephalic, atraumatic, bilateral external ears normal, nose normal. Eyes: PERRLA, EOMI, conjunctiva normal, no discharge. Neck: Normal range of motion, no stridor. Cardiovascular: Heart rate regular rhythm Lungs & Thorax: Respirations even and unlabored, no retractions, no respiratory distress Pelvic Exam: Human Service Specialist present Elyse MAYORGA Abdomen: Suprapubic tenderness to palpation, soft, no palpable mass External Genitalia: Normal Skin Speculum: Heavy bleeding with large clots unable to visualize OS Bimanual: Deferred Skin: Warm, dry, no erythema, no rash. Extremities: No cyanosis, ROM intact, no edema. Neurologic: Alert and oriented X 3, no focal deficits noted. Psychologic: Affect normal, judgement normal, mood tearful Current Patient Data: Labs: Laboratory Tests Test 09/18/20 16:25 White Blood Count 14.6 x10^3/uL (4.0-11.0) H Red Blood Count 3.67 x10^6/uL (3.50-5.40) Hemoglobin 12.2 g/dL (12.0-15.5) Hematocrit 34.6 % (36.0-47.0) L Mean Corpuscular Volume 94 fL (79-100) Mean Corpuscular Hemoglobin 33 pg (25-35) Mean Corpuscular Hemoglobin Concent 35 g/dL (31-37) Red Cell Distribution Width 13.3 % (11.5-14.5) Platelet Count 298 x10^3/uL (140-400) Neutrophils (%) (Auto) 82 % (31-73) H Lymphocytes (%) (Auto) 13 % (24-48) L Monocytes (%) (Auto) 4 % (0-9) Eosinophils (%) (Auto) 1 % (0-3) Basophils (%) (Auto) 0 % (0-3) Neutrophils # (Auto) 12.0 x10^3/uL (1.8-7.7) H Lymphocytes # (Auto) 1.9 x10^3/uL (1.0-4.8) Monocytes # (Auto) 0.6 x10^3/uL (0.0-1.1) Eosinophils # (Auto) 0.1 x10^3/uL (0.0-0.7) Basophils # (Auto) 0.0 x10^3/uL (0.0-0.2) Prothrombin Time 13.6 SEC (11.7-14.0) Prothrombin Time INR 1.1 (0.8-1.1) Maternal Serum HCG Beta Subunit 385914 mIU/mL (0-5) H Laboratory Tests 09/18/20 16:25 Vital Signs: Vital Signs Date Time Temp Pulse Resp B/P (MAP) Pulse Ox O2 Delivery O2 Flow Rate FiO2 09/18/20 17:36 98 107/64 (78) 100 Room Air 09/18/20 16:09 98.6 16 98.6 EKG: EKG: [] Heart Score: Risk Factors: Risk Factors: DM, Current or recent (<one month) smoker, HTN, HLP, family history of CAD, obesity. Risk Scores: Score 0 - 3: 2.5% MACE over next 6 weeks - Discharge Home Score 4 - 6: 20.3% MACE over next 6 weeks - Admit for Clinical Observation Score 7 - 10: 72.7% MACE over next 6 weeks - Early Invasive Strategies Radiology/Procedures: Radiology/Procedures: PROCEDURE: PREG 1ST TRIMESTER INDICATION: Reason: vag bleed / Spl. Instructions: / History: COMPARISON: None. TECHNIQUE: Grayscale and color ultrasound images uterus and adnexa. FINDINGS: Uterus: 139 x 80 x 80 mm. Intrauterine is identified with a pole with crown-rump length of 56 mm and heart beat of 168. 80 x 89 mm masslike structure inferior to the uterus Left ovary is 27 x 27 x 27 mm. 18 mm dominant follicle or small cyst. The right ovary is not seen. IMPRESSION: * Intrauterine is identified with estimated gestational age of 12 weeks and 1 day with positive heartbeat. * Masslike structure is seen inferior to the uterus. This could be secondary to either a mass in the area or hematoma. This is located near the cervical region and upper vaginal region extending to lower uterine segment.[] Course & Med Decision Making: Course & Med Decision Making Pertinent Labs and Imaging studies reviewed. (See chart for details) [id number] spoke with Dr. Cannon advised to the patient in the emergency department. I discussed the ultrasound report and concerns of heavy vaginal bleeding with possible impending miscarriage. I will admit the patient to the OB floor with IV fluids as requested. Patient's vital signs are stable at this time. 181-patient started to complain of increased cramping and increased bleeding. Like exam at this time reveals a large amount of clots in the vaginal canal, Dr. Hand called to the bedside to assist with exam. Dr. Hand massaged the patient's uterus and a large amount of clots were expelled. An estimated greater than 500 cc blood loss is noted. The patient reported decreased cramping after the massage. Patient's vital signs remained stable, second liter of normal saline infusing wide open. 183-advise Dr. Cannon of the change in patient condition and estimated greater than 500 cc of blood loss. Dr. Cannon states she is on her way in to evaluate the patient. Order for type and cross 2 units placed. Will also order repeat H& H,. 184-the patient passed the fetus vaginally at this time. 1907- at bedside will order Rapid COVID19 swab and plan to take patient to the OR for D&C. [] Dragon Disclaimer: [place] Disclaimer: This electronic medical record was generated, in whole or in part, using a voice recognition dictation system. Departure Departure Referrals: NO PCP (PCP) HARDIK BELLA APRN Sep 18, 2020 17:35
[2020-09-18] MEDS ORDERED: IV NORMAL SALINE 1000ML BAG 1,000 ML IV SCH (17:45)
[2020-09-18 18:59] LABS: PROTHROMBIN TIME PATIENT 13.6 SEC (11.7-14.0)
[2020-09-18 19:12] LABS: HEMATOCRIT 27.6 % (36.0-47.0); HEMOGLOBIN 9.5 g/dL (12.0-15.5)
--- NOTE | 2020-09-18 19:26 | PDOC ---
GENERAL General: 25YRS OLD fEMALE 12 weeks came to hospital ER with Pelvic Pain and Bleeding. Passed the Fetus in ER and still bleeding passing Clots. Pelvic Exam revaeals Enlarged Uterus Cervical os Open and bleeding and Passing Clots. Patient Scheduled for Dand C suction curettage. immediately. VITAL SIGNS Vital Signs/I&O: Vital Signs Date Time Temp Pulse Resp B/P (MAP) Pulse Ox O2 Delivery O2 Flow Rate FiO2 09/18/20 18:44 96 121/46 (71) 100 Room Air 09/18/20 16:09 98.6 16 98.6 ALLERGIES Allergies: Allergies Coded Allergies Type Severity Reaction Last Updated Verified No Known Drug Allergies 08/14/17 No MEDS Medications: Current Medications Medications (Trade) Dose Ordered Sig/Mey Route PRN Reason Start Time Stop Time Status Last Admin Dose Admin Fentanyl Citrate (Fentanyl 2ml Vial) 50 mcg 1X ONCE IV 09/18/20 16:30 09/18/20 16:31 DC 09/18/20 16:45 Ondansetron HCl (Zofran) 4 mg 1X ONCE IV 09/18/20 16:30 09/18/20 16:31 DC 09/18/20 16:45 Sodium Chloride 1,000 ml @ 1,000 mls/hr 1X ONCE IV 09/18/20 16:30 09/18/20 17:29 DC 09/18/20 16:45 Fentanyl Citrate (Fentanyl 2ml Vial) 50 mcg 1X ONCE IV 09/18/20 17:30 09/18/20 17:31 DC 09/18/20 17:22 Sodium Chloride 1,000 ml @ 125 mls/hr Q8H IV 09/18/20 17:45 09/19/20 17:44 09/18/20 18:21 Fentanyl Citrate (Fentanyl 2ml Vial) 50 mcg 1X ONCE IV 09/18/20 18:30 09/18/20 18:31 DC 09/18/20 18:24 LAB Lab: Laboratory Tests Test 09/18/20 16:25 09/18/20 19:00 White Blood Count 14.6 x10^3/uL (4.0-11.0) H Red Blood Count 3.67 x10^6/uL (3.50-5.40) Hemoglobin 12.2 g/dL (12.0-15.5) 9.5 g/dL (12.0-15.5) L Hematocrit 34.6 % (36.0-47.0) L 27.6 % (36.0-47.0) L Mean Corpuscular Volume 94 fL (79-100) Mean Corpuscular Hemoglobin 33 pg (25-35) Mean Corpuscular Hemoglobin Concent 35 g/dL (31-37) 34 g/dL (31-37) Red Cell Distribution Width 13.3 % (11.5-14.5) Platelet Count 298 x10^3/uL (140-400) Neutrophils (%) (Auto) 82 % (31-73) H Lymphocytes (%) (Auto) 13 % (24-48) L Monocytes (%) (Auto) 4 % (0-9) Eosinophils (%) (Auto) 1 % (0-3) Basophils (%) (Auto) 0 % (0-3) Neutrophils # (Auto) 12.0 x10^3/uL (1.8-7.7) H Lymphocytes # (Auto) 1.9 x10^3/uL (1.0-4.8) Monocytes # (Auto) 0.6 x10^3/uL (0.0-1.1) Eosinophils # (Auto) 0.1 x10^3/uL (0.0-0.7) Basophils # (Auto) 0.0 x10^3/uL (0.0-0.2) Prothrombin Time 13.6 SEC (11.7-14.0) Prothrombin Time INR 1.1 (0.8-1.1) Maternal Serum HCG Beta Subunit [id number] mIU/mL (0-5) H Laboratory Tests 09/18/20 16:25 09/18/20 19:00 ASSESSMENT & PLAN A&P Scheduled Patient for Dand C suction Curettage. EBL in ER 400cc. Justifications for Admission Other Justification DAYSI ESPINO MD Sep 18, 2020 19:26
[2020-09-18] MEDS ORDERED: DEXAMETHASONE SOD PHOS 4 MG/ML VIAL ONE (19:42)
[2020-09-18] MEDS ORDERED: ONDANSETRON PF 4 MG/2 ML VIAL. ONE (19:42)
[2020-09-18] MEDS ORDERED: PROPOFOL 10 MG/ML (20ML) VIAL. IV ONE (19:42)
[2020-09-18] MEDS ORDERED: LIDOCAINE 2% PF 5 ML VIAL. ONE (19:42)
[2020-09-18] MEDS ORDERED: fentaNYL PF VIAL 100 MCG/2 ML VIAL ONE ×2 (19:47→21:27)
[2020-09-18] MEDS ORDERED: SUCCINYLCHOLINE 200 MG/10 ML VIAL. ONE (19:47)
[2020-09-18] MEDS ORDERED: ROCURONIUM 50 MG/5 ML VIAL. ONE (19:47)
[2020-09-18] MEDS ORDERED: MIDAZOLAM HCL/PF 2 MG/2 ML VIAL. ONE (19:47)
--- NOTE | 2020-09-18 19:47 | HP ---
ADMIT DATE: 09/18/2020 CHIEF COMPLAINT AND HISTORY OF PRESENT ILLNESS: This patient is a 25-year-old [place] lady who is a 5, para 3, history of 1 miscarriage before 12 weeks' at this time. Came into the Emergency Room at the hospital with a history of having pelvic pain, vaginal bleeding, passing clots and as she was in the ER, she expelled the fetus and also bleeding heavy with passing clots at this time. PHYSICAL EXAMINATION: VITAL SIGNS: Being stable. Her hemoglobin is 12. ABDOMEN: Soft, quite tenderness in the pelvic area. PELVIC: Shows cervical os is open. Lot of clots in the vaginal wall to area, which is removed and looks like placenta retained. Uterus is boggy and tender. No adnexal masses are palpable at this time. EXTREMITIES: No edema of feet. IMPRESSION: First trimester miscarriage, retained placenta. PLAN: Dilation and curettage, suction curettage and further treatment. DAYSI ESPINO MD DR: ELVIS/candelaria JOB#: [id number] / [id number]
[2020-09-18] MEDS ORDERED: OXYTOCIN 10 UNIT/ML VIAL. ONE ×2 (20:05)
[2020-09-18] MEDS ORDERED: fentaNYL PF VIAL 100 MCG/2 ML VIAL IVP PRN (20:15)
[2020-09-18] MEDS ORDERED: PROCHLORPERAZINE 10 MG/2 ML VIAL. IVP PRN (20:15)
[2020-09-18] MEDS ORDERED: HYDROmorphone 2 MG/ML VIAL IVP PRN (20:15)
[2020-09-18] MEDS ORDERED: MORPHINE SULFATE 2 MG/ML VIAL. IVP PRN (20:15)
[2020-09-18] MEDS ORDERED: IV RINGERS,LACTATED 1000ML 1,000 ML IV SCH (20:15)
[2020-09-18] MEDS ORDERED: ceFAZolin SODIUM IV Push 1 GM VIAL. IVP ONE (20:18)
[2020-09-18] MEDS ORDERED: miSOPROStol 200 MCG TABLET. ONE (20:21)
[2020-09-18] MEDS ORDERED: miSOPROStol 200 MCG TABLET. VG ONE ×4 (20:50)
--- NOTE | 2020-09-18 21:14 | OP ---
DATE OF SURGERY: 09/18/2020 PREOPERATIVE DIAGNOSIS: 5 with retained placenta. POSTOPERATIVE DIAGNOSIS: 5 with retained placenta. OPERATION PERFORMED: D and C, suction curettage. DESCRIPTION OF PROCEDURE: The patient was taken to the operating room under general anesthesia. She was placed in a dorsal lithotomy position. Perineum was prepped and draped in the usual manner. Weighted speculum inserted in the posterior vaginal wall. Anterior lip of the cervix held with a tenaculum. The vault of the vagina was filled with clots and also placental tissues and retained placenta in the uterus with the ring forceps. The placental tissues removed and a size 8 suction tip cannula was used to suction the uterus complete in the uterus and she did receive 20 units of Pitocin during the time of the curettage and she also received antibiotics IV. At the end of the curettage, speculum tenaculum is removed. Cytotec was inserted into the uterus at the end of the procedure and all the specimen removed and subjected for pathological examination. At the end of the curettage, speculum tenaculum is removed. The patient was sent to the recovery room in good condition. No complications encountered at time of the procedure. Estimated blood loss about 500 mL. Postoperative condition is stable. She will be followed in the office in 2 weeks for postop care and treatment. DAYSI ESPINO MD DR: ELVIS/candelaria JOB#: [id number] / [id number]
[2020-09-18] MEDS: fentaNYL PF VIAL 100 MCG/2 ML VIAL IVP PRN ×2 (21:31→21:47)
[2020-09-18 21:53] LABS: HEMOGLOBIN 7.7 g/dL (12.0-15.5)
[2020-09-18 22:43] VITALS: BP 89/55
[2020-09-18 23:01] VITALS: BP 92/50
[2020-09-18 23:16] VITALS: BP 90/44
[2020-09-18 23:31] VITALS: BP 87/47
[2020-09-18 23:46] VITALS: BP 86/49
[2020-09-19] VITALS (12 sets, daily range): BP systolic 80–94; BP diastolic 44–56
[2020-09-19] MEDS: CLINDAMYCIN IV SCH ×2 (00:23→07:47)
[2020-09-19] MEDS: DEXTROSE 5% IV SCH ×2 (00:23→07:47)
[2020-09-19 09:08] LABS: HEMATOCRIT 29.7 % (36.0-47.0); HEMOGLOBIN 10.4 g/dL (12.0-15.5)
[2020-09-19] MEDS ORDERED: traMADol 50 MG TABLET PO ONE (10:15)
== END 2020-09-19 16:46 | disposition home or self-care (01) ==
LOC: ER 15:58 → 3 SO LND 17:36 → 3 NORTH 22:40
PROVIDERS: ADMIT Obstetrics & Gynecology; ATTEND Obstetrics & Gynecology
DX: O03.4 Incomplete spontaneous abortion without complication (principal); Z20.828 Contact with and (suspected) exposure to other viral communicable diseases; O21.9 Vomiting of pregnancy, unspecified; Z3A.12 12 weeks gestation of pregnancy
CPT/HCPCS: 36415; 36430; 59812; 76801; 84702; 85014; 85018; 85025; 85610; 86850; 86900; 86901; 86920; 87426; 96361; 96365; 96366; 96375; 96376; 99284; G0378; J0690; J1100; J2405; J2590; J2704; J3010; J3490; J7030; J7060; J7120; P9016; U0003; G0379; J0330; J2250

== ENCOUNTER 2021-01-17 22:55 | Emergency (ER) | payer SELFPAY ==
[~2021-01-17] VITALS: Ht 157.5 cm; Wt 52.3 kg
[2021-01-17 23:48] LABS: BILIRUBIN,URINE NEGATIVE (NEG); CLARITY,URINE CLEAR; COLOR,URINE YELLOW; NITRITE,URINE NEGATIVE (NEG); PROTEIN,URINE NEGATIVE (NEG-TRACE); UROBILINOGEN,URINE 0.2 mg/dL (0.2 mg/dL)
[2021-01-17 23:55] LABS: BACTERIA,URINE 0 /HPF (0-FEW); RBC,URINE RARE /HPF (0-2); WBC,URINE RARE /HPF (0-4)
--- NOTE | 2021-01-18 02:09 | PHYS DOC ---
Past Medical History Past Medical History: Asthma Past Surgical History: No Surgical History Additional Past Surgical Histo: D&C Smoking Status: Never Smoker Alcohol Use: None Drug Use: None General Adult EDM: Chief Complaint: MULTIPLE COMPLAINTS HPI: HPI: Patient is a 25 year old female presents with the chief complaint of vaginal bleeding. Patient states LMP was 2 weeks ago. She states over the last 3 days she states she has been passing blood clots with urination. She has associated suprapubic discomfort. Bleeding is described as less the a period and only with urination. Patient states in September she had a miscarriage and underwent a DC. At that time patient required blood. She states a pelvic mass was also found. Patient follow up out patient for pelvic mass but did not get her recommended US. Patient is also requesting prescription for albuterol. Review of Systems: Review of Systems: Constitutional: Denies fever or chills. [] Eyes: Denies change in visual acuity. [] HENT: Denies nasal congestion or sore throat. [] Respiratory: Denies cough or shortness of breath. [] Cardiovascular: positive chest pain GI: Denies abdominal pain, nausea, vomiting, bloody stools or diarrhea. [] : Denies dysuria. [positive vaginal bleeding] Musculoskeletal: Denies back pain or joint pain. [] Integument: Denies rash. [] Neurologic: Denies headache, focal weakness or sensory changes. [positive dizziness] Endocrine: Denies polyuria or polydipsia. [] Lymphatic: Denies swollen glands. [] Psychiatric: Denies depression or anxiety. [] Heart Score: C/O Chest Pain: Yes HEART Score for Chest Pain: HEART Score for Chest Pain Response (Comments) Value History Slighlty/Non-Suspicious 0 ECG Normal 0 Age < 45 0 Risk Factors No Risk Factors 0 Total 0 Risk Factors: Risk Factors: DM, Current or recent (<one month) smoker, HTN, HLP, family history of CAD, obesity. Risk Scores: Score 0 - 3: 2.5% MACE over next 6 weeks - Discharge Home Score 4 - 6: 20.3% MACE over next 6 weeks - Admit for Clinical Observation Score 7 - 10: 72.7% MACE over next 6 weeks - Early Invasive Strategies Allergies: Allergies: Allergies Coded Allergies Type Severity Reaction Last Updated Verified No Known Drug Allergies 12/18/17 No Physical Exam: PE: Constitutional: Well developed, well nourished, no acute distress, non-toxic appearance. [] HENT: Normocephalic, atraumatic, bilateral external ears normal, oropharynx moist, no oral exudates, nose normal. [] Eyes: PERRLA, EOMI, conjunctiva normal, no discharge. [] Neck: Normal range of motion, no tenderness, supple, no stridor. [] Cardiovascular:Heart rate regular rhythm, no murmur [] Lungs & Thorax: Bilateral breath sounds clear to auscultation [] Abdomen: Bowel sounds normal, soft, no tenderness, no masses, no pulsatile masses. [] Skin: Warm, dry, no erythema, no rash. [] Back: No tenderness, no CVA tenderness. [] Extremities: No tenderness, no cyanosis, no clubbing, ROM intact, no edema. [] Neurologic: Alert and oriented X 3, normal motor function, normal sensory function, no focal deficits noted. [] Psychologic: Affect normal, judgement normal, mood normal. [] Current Patient Data: Labs: Laboratory Tests Test 01/17/21 23:05 01/17/21 23:11 Urine Collection Type Unknown Urine Color Yellow Urine Clarity Clear Urine pH 7.0 (<5.0-8.0) Urine Specific [place] <=1.005 (1.000-1.030) Urine Protein Negative mg/dL (NEG-TRACE) Urine Glucose (UA) Negative mg/dL (NEG) Urine Ketones (Stick) Negative mg/dL (NEG) Urine Blood Negative (NEG) Urine Nitrite Negative (NEG) Urine Bilirubin Negative (NEG) Urine Urobilinogen Dipstick 0.2 mg/dL (0.2 mg/dL) Urine Leukocyte Esterase Negative (NEG) Urine RBC Rare /HPF (0-2) Urine WBC Rare /HPF (0-4) Urine Squamous Epithelial Cells Few /LPF Urine Bacteria 0 /HPF (0-FEW) POC Urine HCG, Qualitative Hcg negative (Negative) Vital Signs: Vital Signs Date Time Temp Pulse Resp B/P (MAP) Pulse Ox O2 Delivery O2 Flow Rate FiO2 01/18/21 00:50 97.8 78 18 106/66 (79) 99 Room Air 97.8 EKG: EKG: [] KG performed at 0207 heart rate 68 normal sinus rhythm Radiology/Procedures: Radiology/Procedures: [] Course & Med Decision Making: Course & Med Decision Making Pertinent Labs and Imaging studies reviewed. (See chart for details) [] Patient evaluated for chief complaint. Work-up consisted of a CBC and EKG. EKG within normal limits. Patient's hemoglobin stable. Patient's urine without signs of infection. Patient states she has a known pelvic mass was evaluated by OB but has not followed up with outpatient ultrasound. Patient will be discharged home with instructions to follow-up with OB. Will prescribe patient requested albuterol. Dragon Disclaimer: Dragon Disclaimer: This electronic medical record was generated, in whole or in part, using a voice recognition dictation system. Departure Departure Impression: Primary Impression: Dysfunctional uterine bleeding Disposition: HOME / SELF CARE / HOMELESS Condition: STABLE Referrals: NO PCP (PCP) Patient Instructions: Uterine Bleeding, Dysfunctional Scripts Albuterol Sulfate (Proair Hfa) 8.5 Gm Hfa.aer.ad 1 PUFF INH PRN Q6HRS PRN for SHORTNESS OF BREATH, #1 EACH Prov: IZABELA AMADOR I DO 01/18/21 Albuterol Sulfate (Proair Hfa) 8.5 Gm Hfa.aer.ad 1 PUFF INH PRN Q6HRS PRN for SHORTNESS OF BREATH, #1 EACH Prov: IZABELA AMADOR I DO 01/18/21 IZABELA AMADOR DO January 18, 2021 02:09
[2021-01-18 02:27] VITALS: BP 96/56
[2021-01-18 02:31] LABS: BASO % 1 % (0-3); EOS # 0.2 x10^3/uL (0.0-0.7); EOS % 3 % (0-3); HEMATOCRIT 39.8 % (36.0-47.0); HEMOGLOBIN 13.8 g/dL (12.0-15.5); LYMPH # 3.5 x10^3/uL (1.0-4.8); LYMPH % 45 % (24-48); MEAN CORPUSCULAR HEMOGLOBIN 32 pg (25-35); MEAN CORPUSCULAR HGB CONC 35 g/dL (31-37); MEAN CORPUSCULAR VOLUME 91 fL (79-100); MONO # 0.5 x10^3/uL (0.0-1.1); MONO % 6 % (0-9); NEUT # 3.6 x10^3/uL (1.8-7.7); NEUT % 46 % (31-73); PLATELET COUNT 311 x10^3/uL (140-400); RED BLOOD COUNT 4.38 x10^6/uL (3.50-5.40); RED CELL DISTRIBUTION WIDTH 13.5 % (11.5-14.5); WHITE BLOOD COUNT 7.9 x10^3/uL (4.0-11.0)
--- NOTE | 2021-01-18 02:39 | EKG ---
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
[2021-01-18] MEDS ORDERED: ALBU2.5V8 INH ×2 (02:41→02:47)
== END 2021-01-18 03:15 | disposition home or self-care (01) ==
LOC: ER 22:55
DX: N93.8 Other specified abnormal uterine and vaginal bleeding (principal); J45.909 Unspecified asthma, uncomplicated
CPT/HCPCS: 36415; 81001; 81025; 85025; 93005; 99284

== ENCOUNTER 2021-01-29 18:11 | Emergency (ER) | payer SELFPAY ==
[~2021-01-29] VITALS: Ht 157.5 cm; Wt 52.2 kg
[~2021-01-29 18:11] MED LIST changes: +DOXY-181 PO; -DOXY100C14 PO
[2021-01-29] MEDS ORDERED: IV NORMAL SALINE 1000ML BAG 1,000 ML IV ONE (18:30)
--- NOTE | 2021-01-29 18:43 | PHYS DOC ---
Past Medical History Past Medical History: Asthma Past Surgical History: No Surgical History Additional Past Surgical Histo: D&C Smoking Status: Never Smoker Alcohol Use: None Drug Use: None General Adult EDM: Chief Complaint: SHORTNESS OF BREATH HPI: HPI: 25-year-old female presents via EMS with report of palpitations and shortness of air that started just prior to arrival. Patient reports has had increased life stressors over the last several weeks to months. Patient reports recent miscarriage. Patient also reports other life stressors. 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 Reports the client kept telling her they needed to leave due to time constraints. Patient also had a friend watch her children during this time who also ended up needing to leave earlier than expected. Patient reports she was able to finish the nail treatment and went outside with a friend to say goodbye. Reports the friend smoked some marijuana of which patient took 1 inhalation. Patient subsequently became "shaky ". Patient does have a history of anxiety for which she was seen recently at . Patient reports she was started on some medication but is currently out. Patient does not follow with a PCP or mental health professional. Patient reports in the past she has had some suicidal ideation but denies any current. Patient also reports periods of lightheadedness and dizziness since having her miscarriage. Review of Systems: Review of Systems: Constitutional: Denies fever or chills Eyes: Denies redness or eye pain HENT: Denies nasal congestion or sore throat Respiratory: Denies cough or shortness of breath Cardiovascular: Denies chest pain; reports palpitations GI: Denies abdominal pain, nausea, or vomiting : Denies dysuria or hematuria Musculoskeletal: Denies back pain or joint pain Integument: Denies rash or skin lesions Neurologic: Denies headache, focal weakness or sensory changes; reports dizziness and lightheadedness Complete systems were reviewed and found to be within normal limits, except as documented in this note. Heart Score: C/O Chest Pain: N/A Current Medications: Current Medications Medications (Trade) Dose Ordered Sig/Mey Start Time Stop Time Status Last Admin Dose Admin Lorazepam (Ativan Inj) 0.5 mg 1X ONCE 01/29/21 18:30 01/29/21 18:31 DC Sodium Chloride 1,000 ml @ 1,000 mls/hr 1X ONCE 01/29/21 18:30 01/29/21 19:29 Allergies: Allergies: Allergies Coded Allergies Type Severity Reaction Last Updated Verified No Known Drug Allergies 08/14/17 No Physical Exam: PE: Constitutional: Well developed, well nourished, tearful, non-toxic appearance HENT: Normocephalic, atraumatic Eyes: Conjunctiva normal, no discharge Neck: Normal range of motion, no tenderness, supple Lungs & Thorax: No respiratory distress, equal chest rise and fall Abdomen: Soft, no tenderness Skin: Warm, dry, no erythema, no rash\\ Extremities: No tenderness, ROM intact, no edema Neurologic: Alert and oriented X 3, normal motor function, normal sensory function, no focal deficits noted Psychologic: Affect anxious, judgment normal, denies current suicidality. EKG: EKG: @1828 NSR at 93bpm, NO ST elevation, QRS 74ms, QT/QTc 354/443ms, t wave inversions in III Radiology/Procedures: Radiology/Procedures: [] Course & Med Decision Making: Course & Med Decision Making Pertinent Lab studies reviewed. (See chart for details) Patient presents with HPI and physical exam consistent for panic attack. Vital signs stable. Anxiety addressed. IV fluid hydration provided. EKG without acute process. Labs obtained and posted to chart. H&H stable. Electrolytes with some hypokalemia which was addressed, otherwise unremarkable. Patient stable for discharge with outpatient follow-up with PCP/mental health professional. PCP pamphlet and number for [facility] provided. Discussed findings and plan with patient, who acknowledges understanding and agreement. Lokesh Disclaimer: Lokesh Disclaimer: This electronic medical record was generated, in whole or in part, using a voice recognition dictation system. Departure Departure Impression: Primary Impression: Anxiety Additional Impression: Hypokalemia Disposition: HOME / SELF CARE / HOMELESS Condition: STABLE Referrals: NO PCP (PCP) Patient Instructions: Anxiety and Panic Attacks, [id number], Hypokalemia, Potassium Content of Foods Additional Instructions: Please call [facility] at to seek help for your mental health/anxiety. Scripts Lorazepam (ATIVAN) 0.5 Mg Tablet 0.5 MG PO Q8HRS PRN for ANXIETY, #10 TAB Prov: GEOVANNA SINHA DO 01/29/21 GEOVANNA SINHA DO Jan 29, 2021 18:43
[2021-01-29] MEDS ORDERED: LORA0.5T96 PO (18:44)
[2021-01-29 18:52] LABS: BASO % 0 % (0-3); EOS % 1 % (0-3); HEMATOCRIT 38.2 % (36.0-47.0); HEMOGLOBIN 13.6 g/dL (12.0-15.5); LYMPH # 1.8 x10^3/uL (1.0-4.8); LYMPH % 22 % (24-48); MEAN CORPUSCULAR HEMOGLOBIN 32 pg (25-35); MEAN CORPUSCULAR HGB CONC 36 g/dL (31-37); MEAN CORPUSCULAR VOLUME 90 fL (79-100); MONO # 0.4 x10^3/uL (0.0-1.1); MONO % 5 % (0-9); NEUT # 5.9 x10^3/uL (1.8-7.7); NEUT % 72 % (31-73); PLATELET COUNT 305 x10^3/uL (140-400); RED BLOOD COUNT 4.25 x10^6/uL (3.50-5.40); RED CELL DISTRIBUTION WIDTH 13.8 % (11.5-14.5); WHITE BLOOD COUNT 8.3 x10^3/uL (4.0-11.0)
[2021-01-29 18:53] LABS: BILIRUBIN,URINE NEGATIVE (NEG); CLARITY,URINE CLEAR; COLOR,URINE YELLOW; NITRITE,URINE NEGATIVE (NEG); PH,URINE 6.5 (<5.0-8.0); PROTEIN,URINE NEGATIVE (NEG-TRACE); UROBILINOGEN,URINE 0.2 mg/dL (0.2 mg/dL)
[2021-01-29 19:03] LABS: CALCIUM 9.4 mg/dL (8.5-10.1); CREATININE 0.8 mg/dL (0.6-1.0); GFR 88.1; POTASSIUM 3.2 mmol/L (3.5-5.1)
[2021-01-29 19:09] LABS: ALBUMIN 4.5 g/dL (3.4-5.0); ALBUMIN/GLOBULIN RATIO 1.5 (1.0-1.7); MAGNESIUM 1.8 mg/dL (1.8-2.4); TOTAL BILIRUBIN 0.5 mg/dL (0.2-1.0); TOTAL PROTEIN 7.6 g/dL (6.4-8.2)
[2021-01-29 19:11] LABS: BACTERIA,URINE 0 /HPF (0-FEW); RBC,URINE 0 /HPF (0-2); WBC,URINE 0 /HPF (0-4)
[2021-01-29 19:42] VITALS: BP 89/51
[2021-01-29] MEDS ORDERED: POTASSIUM CHLORIDE 20 MEQ TABLET.ER. PO ONE (19:45)
--- NOTE | 2021-01-29 20:12 | EKG ---
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
== END 2021-01-29 19:56 | disposition home or self-care (01) ==
LOC: ER 18:11
DX: F41.9 Anxiety disorder, unspecified (principal); E87.6 Hypokalemia; J45.909 Unspecified asthma, uncomplicated; R42 Dizziness and giddiness
CPT/HCPCS: 36415; 80053; 81001; 81025; 83735; 85025; 93005; 96361; 96374; 99285; J2060; J7030

== ENCOUNTER 2021-06-23 13:40 | Emergency (ER) | payer SELFPAY ==
[~2021-06-23] VITALS: Ht 154.9 cm; Wt 51.4 kg
[~2021-06-23 13:40] MED LIST changes: +LORA0.5T96 PO
[2021-06-23 14:10] LABS: BILIRUBIN,URINE NEGATIVE (NEG); CLARITY,URINE CLEAR; COLOR,URINE AMBER; NITRITE,URINE NEGATIVE (NEG); PH,URINE 5.5 (<5.0-8.0); PROTEIN,URINE NEGATIVE (NEG-TRACE); UROBILINOGEN,URINE 0.2 mg/dL (0.2 mg/dL)
[2021-06-23 14:19] LABS: RBC,URINE 0 /HPF (0-2); WBC,URINE 20-40 /HPF (0-4)
[2021-06-23 14:20] LABS: BACTERIA,URINE FEW /HPF (0-FEW)
[2021-06-23] MEDS ORDERED: IV NORMAL SALINE 1000ML BAG 1,000 ML IV ONE (14:30)
[2021-06-23] MEDS ORDERED: cefTRIAXone IV Push 1 GM VIAL. IVP ONE (14:30)
[2021-06-23 14:38] LABS: BASO % 0 % (0-3); EOS # 0.2 x10^3/uL (0.0-0.7); EOS % 2 % (0-3); HEMATOCRIT 43.3 % (36.0-47.0); HEMOGLOBIN 14.9 g/dL (12.0-15.5); LYMPH # 1.1 x10^3/uL (1.0-4.8); LYMPH % 11 % (24-48); MEAN CORPUSCULAR HEMOGLOBIN 32 pg (25-35); MEAN CORPUSCULAR HGB CONC 34 g/dL (31-37); MEAN CORPUSCULAR VOLUME 94 fL (79-100); MONO # 0.5 x10^3/uL (0.0-1.1); MONO % 5 % (0-9); NEUT # 8.7 x10^3/uL (1.8-7.7); NEUT % 82 % (31-73); PLATELET COUNT 329 x10^3/uL (140-400); RED BLOOD COUNT 4.63 x10^6/uL (3.50-5.40); RED CELL DISTRIBUTION WIDTH 12.7 % (11.5-14.5); WHITE BLOOD COUNT 10.6 x10^3/uL (4.0-11.0)
[2021-06-23 14:43] LABS: CALCIUM 8.8 mg/dL (8.5-10.1); CREATININE 0.7 mg/dL (0.6-1.0); POTASSIUM 3.6 mmol/L (3.5-5.1)
[2021-06-23 14:49] LABS: ALBUMIN 4.3 g/dL (3.4-5.0); ALBUMIN/GLOBULIN RATIO 1.2 (1.0-1.7); TOTAL BILIRUBIN 0.6 mg/dL (0.2-1.0)
[2021-06-23 15:00] VITALS: BP 115/70
[2021-06-23] MEDS ORDERED: CEPH500C PO (15:06)
[2021-06-23] MEDS ORDERED: METR-34 PO (15:06)
--- NOTE | 2021-06-23 15:07 | PHYS DOC ---
Past Medical History Past Medical History: Anxiety Past Surgical History: Other Additional Past Surgical Histo: D&C, Smoking Status: Never Smoker Alcohol Use: None Drug Use: None General Adult EDM: Chief Complaint: VAGINAL BLEEDING HPI: HPI: Patient is a 26 year old female who presents with lower abdominal pain that gets worse with urinating. This has been going on for last 4 days. There is blood with clots after urinating. No vaginal urinating. Burning with urination. She is 3 weeks late on her menstrual cycle. She is also having bilateral flank pain. She states she is nauseated but does not have any current fevers and is slightly dizzy at times. Patient has a history with , anxiety and a D&C. Rates her discomfort as 6 out of 10. Review of Systems: Review of Systems: Constitutional: Denies fever or +chills. [] Eyes: Denies change in visual acuity. [] HENT: Denies nasal congestion or sore throat. [] Respiratory: Denies cough or shortness of breath. [] Cardiovascular: Denies chest pain or edema. [] GI: + Lower abdominal pain, +nausea, denies vomiting, bloody stools or diarrhea. [] : Denies dysuria. [] Musculoskeletal: + Bilateral flank back pain or denies joint pain. [] Integument: Denies rash. [] Neurologic: Denies headache, focal weakness or sensory changes. + Intermittent dizziness [] Endocrine: Denies polyuria or polydipsia. [] Lymphatic: Denies swollen glands. [] Psychiatric: Denies depression or anxiety. [] Heart Score: C/O Chest Pain: No Current Medications: Current Medications Medications (Trade) Dose Ordered Sig/Mey Start Time Stop Time Status Last Admin Dose Admin Ceftriaxone Sodium (Rocephin) 1 gm 1X ONCE 06/23/21 14:30 06/23/21 14:31 DC 06/23/21 14:53 1 GM Sodium Chloride 1,000 ml @ 1,000 mls/hr 1X ONCE 06/23/21 14:30 06/23/21 15:29 06/23/21 14:52 1,000 MLS/HR Allergies: Allergies: Allergies Coded Allergies Type Severity Reaction Last Updated Verified No Known Drug Allergies 08/14/17 No Physical Exam: PE: Constitutional: Well developed, well nourished, no acute distress, non-toxic appearance. [] HENT: Normocephalic, atraumatic, bilateral external ears normal, oropharynx moist, no oral exudates, nose normal. [] Eyes: PERRLA, EOMI, conjunctiva normal, no discharge. [] Neck: Normal range of motion, no tenderness, supple, no stridor. [] Cardiovascular:Heart rate regular rhythm, no murmur [] Lungs & Thorax: Bilateral breath sounds clear to auscultation [] Abdomen: Bowel sounds normal, soft, low mid tenderness, no masses, no pulsatile masses. [] Skin: Warm, dry, no erythema, no rash. [] Back: No tenderness, bilateral CVA tenderness. [] Extremities: No tenderness, no cyanosis, no clubbing, ROM intact, no edema. [] Neurologic: Alert and oriented X 3, normal motor function, normal sensory function, no focal deficits noted. [] Psychologic: Affect normal, judgement normal, mood normal. [] Current Patient Data: Labs: Laboratory Tests Test 06/23/21 14:00 06/23/21 14:25 Urine Collection Type Unknown Urine Color [place] Urine Clarity Clear Urine pH 5.5 (<5.0-8.0) Urine Specific [place] 1.025 (1.000-1.030) Urine Protein Negative mg/dL (NEG-TRACE) Urine Glucose (UA) Negative mg/dL (NEG) Urine Ketones (Stick) Negative mg/dL (NEG) Urine Blood Trace (NEG) Urine Nitrite Negative (NEG) Urine Bilirubin Negative (NEG) Urine Urobilinogen Dipstick 0.2 mg/dL (0.2 mg/dL) Urine Leukocyte Esterase Small (NEG) Urine RBC 0 /HPF (0-2) Urine WBC 20-40 /HPF (0-4) Urine Squamous Epithelial Cells Mod /LPF Urine Bacteria Few /HPF (0-FEW) Urine Mucus Marked /LPF POC Urine HCG, Qualitative Hcg negative (Negative) White Blood Count 10.6 x10^3/uL (4.0-11.0) Red Blood Count 4.63 x10^6/uL (3.50-5.40) Hemoglobin 14.9 g/dL (12.0-15.5) Hematocrit 43.3 % (36.0-47.0) Mean Corpuscular Volume 94 fL (79-100) Mean Corpuscular Hemoglobin 32 pg (25-35) Mean Corpuscular Hemoglobin Concent 34 g/dL (31-37) Red Cell Distribution Width 12.7 % (11.5-14.5) Platelet Count 329 x10^3/uL (140-400) Neutrophils (%) (Auto) 82 % (31-73) H Lymphocytes (%) (Auto) 11 % (24-48) L Monocytes (%) (Auto) 5 % (0-9) Eosinophils (%) (Auto) 2 % (0-3) Basophils (%) (Auto) 0 % (0-3) Neutrophils # (Auto) 8.7 x10^3/uL (1.8-7.7) H Lymphocytes # (Auto) 1.1 x10^3/uL (1.0-4.8) Monocytes # (Auto) 0.5 x10^3/uL (0.0-1.1) Eosinophils # (Auto) 0.2 x10^3/uL (0.0-0.7) Basophils # (Auto) 0.0 x10^3/uL (0.0-0.2) Maternal Serum HCG Beta Subunit < 1 mIU/mL (0-5) Sodium Level 139 mmol/L (136-145) Potassium Level 3.6 mmol/L (3.5-5.1) Chloride Level 102 mmol/L (98-107) Carbon Dioxide Level 26 mmol/L (21-32) Anion Gap 11 (6-14) Blood Urea Nitrogen 11 mg/dL (7-20) Creatinine 0.7 mg/dL (0.6-1.0) Estimated GFR (Cockcroft-Gault) 102.0 BUN/Creatinine Ratio 16 (6-20) Glucose Level 101 mg/dL (70-99) H Calcium Level 8.8 mg/dL (8.5-10.1) Total Bilirubin 0.6 mg/dL (0.2-1.0) Aspartate Amino Transferase (AST) 19 U/L (15-37) Alanine Aminotransferase (ALT) 34 U/L (14-59) Alkaline Phosphatase 55 U/L (46-116) Total Protein 8.0 g/dL (6.4-8.2) Albumin 4.3 g/dL (3.4-5.0) Albumin/Globulin Ratio 1.2 (1.0-1.7) Laboratory Tests 06/23/21 14:25 Laboratory Tests 06/23/21 14:25 Microbiology 06/23/21 Wet Prep - Final, Complete Vital Signs: Vital Signs Date Time Temp Pulse Resp B/P (MAP) Pulse Ox O2 Delivery O2 Flow Rate FiO2 06/23/21 13:55 98.6 106 16 117/70 (86) 97 Room Air 98.6 EKG: EKG: [] Radiology/Procedures: Radiology/Procedures: [] Course & Med Decision Making: Course & Med Decision Making Pertinent Labs and Imaging studies reviewed. (See chart for details) See HPI. Alert and oriented x4. Ambulatory with a steady gait. Speaks in full clear sentences. Skin pink warm and dry. Cap refill less than 2 seconds. Abdomen is soft but tender to the low mid abdomen. test is negative. Beta serum is negative. She is given Rocephin IV in the ED. Her wet prep shows bacterial vaginosis. Urinalysis is positive for infection. Pelvic Exam: [employer] Developer present Abdomen: Low mid tenderness External Genitalia: Normal Skin Speculum: Normal vaginal mucosa, white cervical discharge Bimanual: No adnexal masses or tenderness, No CMT [] Dragon Disclaimer: Dragon Disclaimer: This electronic medical record was generated, in whole or in part, using a voice recognition dictation system. Departure Departure Impression: Primary Impression: UTI (urinary tract infection) Qualified Codes: N39.0 - Urinary tract infection, site not specified; R31.9 - Hematuria, unspecified Additional Impression: Bacterial vaginosis Disposition: HOME / SELF CARE / HOMELESS Condition: STABLE Referrals: NO PCP (PCP) Patient Instructions: Bacterial Vaginosis, Urinary Tract Infection Additional Instructions: Follow-up with primary care provider since possible. Take medication as prescribed and with food. If any symptoms worsen or you start to vomit cannot keep down any food return emergency room. Scripts Metronidazole (METRONIDAZOLE) 500 Mg Tablet 1 TAB PO BID for 7 Days, #14 TAB 0 Refills Prov: KIMBER MOHR [employer] 06/23/21 Cephalexin (KEFLEX) 500 Mg Capsule 1 CAP PO TID, #30 CAP Prov: KIMBER MOHR [employer] 06/23/21 KIMBER MOHR APRN Jun 23, 2021 15:07
[2021-06-23] MEDS ORDERED: PHENAZOPYRIDINE 200 MG TABLET. PO ONE (15:15)
[2021-06-24 18:29] LABS: GC PROBE Negative (Negative)
== END 2021-06-23 15:35 | disposition home or self-care (01) ==
LOC: ER 13:40
DX: N39.0 Urinary tract infection, site not specified (principal); R31.9 Hematuria, unspecified; N76.0 Acute vaginitis; B96.89 Other specified bacterial agents as the cause of diseases classified elsewhere
CPT/HCPCS: 80053; 81001; 81025; 84702; 85025; 87086; 87491; 87591; 96361; 96374; 99284; J0696; J7030; Q0111

== ENCOUNTER 2021-10-31 00:58 | Emergency (ER) | payer SELFPAY ==
[~2021-10-31] VITALS: Ht 154.9 cm; Wt 52.3 kg
--- NOTE | 2021-10-31 02:11 | PHYS DOC ---
Past Medical History Past Medical History: Anxiety Past Surgical History: Other Additional Past Surgical Histo: D&C, Smoking Status: Never Smoker Alcohol Use: None Drug Use: None General Adult EDM: Chief Complaint: VAGINAL BLEEDING HPI: HPI: Patient is a 26 year old female presents with the chief complaint of vaginal bleeding. States LMP 07-28-2020. Patient states bleeding since monday. Patient was actually evaluated at [facility] on 10/28/21. Patient had bhcg and pelvic ultrasound. Patient states she did not understand if she was still . She states she wasnt really explained her results. Advised patient that I suspect US was unable to confirm IUP. Patient was diagnosed at [facility] as vaginal bleeding 1st trimester and miscarriage. Patient educated. Review of Systems: Review of Systems: Constitutional: Denies fever or chills. [] Eyes: Denies change in visual acuity. [] HENT: Denies nasal congestion or sore throat. [] Respiratory: Denies cough or shortness of breath. [] Cardiovascular: Denies chest pain or edema. [] GI: Denies abdominal pain, nausea, vomiting, bloody stools or diarrhea. [] : Denies dysuria. [] positive vaginal bleeding Musculoskeletal: Denies back pain or joint pain. [] Integument: Denies rash. [] Neurologic: Denies headache, focal weakness or sensory changes. [] Endocrine: Denies polyuria or polydipsia. [] Lymphatic: Denies swollen glands. [] Psychiatric: Denies depression or anxiety. [] Heart Score: C/O Chest Pain: N/A Risk Factors: Risk Factors: DM, Current or recent (<one month) smoker, HTN, HLP, family history of CAD, obesity. Risk Scores: Score 0 - 3: 2.5% MACE over next 6 weeks - Discharge Home Score 4 - 6: 20.3% MACE over next 6 weeks - Admit for Clinical Observation Score 7 - 10: 72.7% MACE over next 6 weeks - Early Invasive Strategies Allergies: Allergies: Allergies Coded Allergies Type Severity Reaction Last Updated Verified No Known Drug Allergies 08/14/17 No Physical Exam: PE: Constitutional: Well developed, well nourished, no acute distress, non-toxic appearance. [] HENT: Normocephalic, atraumatic, bilateral external ears normal, oropharynx moist, no oral exudates, nose normal. [] Eyes: PERRLA, EOMI, conjunctiva normal, no discharge. [] Neck: Normal range of motion, no tenderness, supple, no stridor. [] Cardiovascular:Heart rate regular rhythm, no murmur [] Lungs & Thorax: Bilateral breath sounds clear to auscultation [] Abdomen: Bowel sounds normal, soft, no tenderness, no masses, no pulsatile masses. [] Skin: Warm, dry, no erythema, no rash. [] Back: No tenderness, no CVA tenderness. [] Extremities: No tenderness, no cyanosis, no clubbing, ROM intact, no edema. [] Neurologic: Alert and oriented X 3, normal motor function, normal sensory function, no focal deficits noted. [] Psychologic: Affect normal, judgement normal, mood normal. [] Current Patient Data: Labs: Laboratory Tests Test 10/31/21 01:20 Maternal Serum HCG Beta Subunit 337 mIU/mL (0-5) H Vital Signs: Vital Signs Date Time Temp Pulse Resp B/P (MAP) Pulse Ox O2 Delivery O2 Flow Rate FiO2 10/31/21 01:15 97.7 70 16 111/58 (75) 99 Room Air 97.7 EKG: EKG: [] Radiology/Procedures: Radiology/Procedures: [] Course & Med Decision Making: Course & Med Decision Making Pertinent Labs and Imaging studies reviewed. (See chart for details) [] Dragon Disclaimer: Dragon Disclaimer: This electronic medical record was generated, in whole or in part, using a voice recognition dictation system. Departure Departure Impression: Primary Impression: Miscarriage Additional Impression: Vaginal bleeding affecting early Disposition: 01 HOME / SELF CARE / HOMELESS Condition: STABLE Referrals: NO PCP (PCP) Patient Instructions: Miscarriage, Vaginal Bleeding During , [id number] IZABELA AMADOR I DO Oct 31, 2021 02:11
[2021-10-31 02:46] VITALS: BP 102/63
== END 2021-10-31 03:06 | disposition home or self-care (01) ==
LOC: ER 00:58
DX: O03.9 Complete or unspecified spontaneous abortion without complication (principal)
CPT/HCPCS: 36415; 84702; 99283